=== PATIENT | female | born 1950 | race Caucasian/White ===

== ENCOUNTER 2017-02-10 06:41 | Emergency (ER) | payer OTHER ==
[~2017-02-10] VITALS: Ht 160 cm; Wt 74.6 kg
[~2017-02-10 06:41] MED LIST: ATOR-22 PO; CHOL1000 PO; CYAN500T PO; DOCU-94 PO; DTRSR/10 PO; EFLO13.94 TOP; ESTCR PV; GLIP5TAB11 PO; LISI-729 PO; Lidocaine patch TOP; METF-383 PO; RIZA10TA18 PO; [UNRECOGNIZED DRUG - CODE] PO
[2017-02-10 06:48] VITALS: TEMP 36.9; Ht 160 cm; Wt 74.6 kg
[2017-02-10] MEDS ORDERED: NF656 TOP (07:02)
[2017-02-10] MEDS ORDERED: ESTCR PV (07:02)
[2017-02-10] MEDS ORDERED: IBUP200C9 PO (07:04)
--- NOTE | 2017-02-10 07:41 | EMERGENCY ROOM VISIT NOTE ---
History Report prepared by Juanita: Sanya Capone Under the Supervision of: Dr. Marycruz Zhang M.D. First contact with patient: 07:07 Chief Complaint: FALL Stated Complaint: FALL History of Present Illness The patient is a 66 year old female who presents to the Emergency Room with complaints of an acute fall. The patient fell from her bed at approximately 0500. During the fall she hit her neck on the night stand. She currently complains of left-sided head neck and hip pain. She was eventually able to get up from the floor after 10-15 minutes. The patient had a strong urge to urinate after the fall and was able to make it to the bathroom. To her knowledge, she did not lose consciousness. The patient is not on blood thinners and does not normally take aspirin. The patient took an Advil PM last night as she has chronic back pain. The patient is diabetic. Source of History: patient Onset: last night Position: other (global) Quality: other (fall) Timing: other (acute) Associated Symptoms: + headache, + neck pain, No LOC Review of Systems See HPI for pertinent positives & negatives. A total of 10 systems reviewed and were otherwise negative. Past Medical & Surgical Medical Problems: (1) Cystitis, chronic (2) Diabetes (3) DVT (deep venous thrombosis) (4) Dyslipidemia (5) Ovarian cancer Surgical Problems: (1) History of appendectomy (2) History of cholecystectomy Family History Cancer Diabetes mellitus Heart disease Hypertension Kidney disease Kidney stones Social History Smoking Status: Never Smoker Alcohol Use: none Housing Status: lives alone Occupation Status: unemployed Current/Historical Medications Scheduled Atorvastatin (Lipitor), 40 MG PO DAILY Cholecalciferol (Vitamin D3), 1 TAB PO DAILY Cyanocobalamin (Vitamin B-12), 500 MCG PO BID Docusate Sodium (Colace), 1 CAP PO BID Eflornithine Hcl (Vaniqa), 1 APPLN TOP DAILY Estradiol Vaginal (Estrace), 2 APPLN PV 2XWK Glipizide (Glucotrol), 5 MG PO BID Lidocaine (Lidoderm Patch 5%), 1 PATCH TOP DAILY Lisinopril (Prinivil), 5 MG PO DAILY Metformin Hcl (Glucophage), 850 MG PO BID Oxybutynin Chloride (Oxybutynin Chloride ER), 10 MG PO DAILY Scheduled PRN Ibuprofen-Diphenhydramine Hcl (Advil Pm), 1 CAP PO HS PRN for Sleep Rizatriptan Benzoate (Maxalt), 10 MG PO for Migraine Allergies Coded Allergies: Gabapentin (Unverified Allergy, Intermediate, Nausea,dizziness and forgrtfullness., 02/10/17) Diphenhydramine (Verified Allergy, Unknown, ., 02/10/17) Physical Exam Vital Signs Date Time Temp Pulse Resp B/P Pulse Ox O2 Delivery O2 Flow Rate FiO2 02/10/17 09:00 54 18 112/69 96 02/10/17 06:48 36.9 54 20 127/70 96 Room Air Physical Exam Vital signs reviewed. General: Well-appearing female, in no significant distress. HEENT: No scleral icterus, PERRLA, neck supple. Minimal swelling/contusion to the angle fo the left side of mandible. Neck: Mild tenderness of the proximal cervical spine, no stepoff, no obvious deformity. Cardiovascular: Regular rate and rhythm, no extra sounds. Pulmonary: Clear to auscultation bilaterally, normal work of breathing. Abdomen: Soft, nontender, nondistended, positive bowel sounds. Musculoskeletal: Atraumatic, no peripheral edema. Neurologic: Patient awake alert and oriented x 3 Skin: Warm, dry, no rash Medical Decision & Procedures ER Provider Diagnostic Interpretation: X-ray results as stated below per my interpretation and radiologist interpretation. Other radiology results as stated below per my review and radiologist interpretation: HEAD CT NONCONTRAST CT DOSE: HISTORY: Trauma. Mental status change. fall, CHI TECHNIQUE: Multiaxial CT images of the head were performed without the use of intravenous contrast. Comparison: 01/13/2008 Findings: The paranasal sinuses and mastoid air cells are clear. The calvarium and skull base are intact. The ventricles and sulci are within normal limits. There is no mass, hematoma, midline shift, or acute infarct. Moderate frontal atrophy unchanged in the prior exam. Impression: No acute intracranial abnormality. Electronically signed by: Cheko Hopkins M.D. 02/10/2017 8:28 AM Dictated Date/Time: 02/10/2017 8:[address] DOSE: 924.56 mGy.cm HISTORY: Trauma. Pain. fall, L neck pain TECHNIQUE: Multiaxial CT images of the cervical spine were performed and reformatted in the sagittal and coronal plane without the use of contrast. COMPARISON: None. FINDINGS: No fractures. No subluxation. Prevertebral soft tissues and the C1-C2 interval are intact. No pneumothorax. Mild reversal of the cervical curvature consistent muscular spasm. Degenerative intervertebral disc change C4-T1. IMPRESSION: No fractures within the cervical spine. Muscle spasm. Degenerative change. Electronically signed by: Cheko Hopkins M.D. 02/10/2017 8:31 AM Dictated Date/Time: 02/10/2017 8:28 AM Laboratory Results Test 02/10/17 08:20 Bedside Glucose 137 mg/dl (70-90) Laboratory results per my review. ED Course 0710: The patient was evaluated by the [facility]. 0740: Past medical records reviewed. The patient was evaluated in room A3. A complete history and physical examination was performed. 0900: Reassessed the patient. Discussed the findings with her. She verbalized understanding of the discharge instructions. The patient is ready for discharge. Medical Decision Differential diagnosis: Intracranial injury, cervical spine injury, intrathoracic injury, intra- abdominal injury, musculoskeletal injury. This patient was evaluated and appeared to be in no significant distress. Physical examination is fairly unrevealing with the exception of a mild hematoma /contusion to the left angle of the mandible. CT scan of the head and cervical spine was performed and is negative for acute traumatic findings. Patient was informed of the findings. Her blood sugars 137 which was checked at her request. Patient was doing well and was discharged to follow-up with her primary care physician. She will return to the ER for worsening of symptoms or any medical concerns. Impression Primary Impression: Fall Additional Impression: Neck contusion Scribe Attestation The scribe's documentation has been prepared under my direction and personally reviewed by me in its entirety. I confirm that the note above accurately reflects all work, treatment, procedures, and medical decision making performed by me. Departure Information Dispostion Home / Self-Care Referrals Cori Flores D.O. (PCP) Forms HOME CARE DOCUMENTATION FORM, IMPORTANT VISIT INFORMATION Patient Instructions My [facility] Additional Instructions Diagnosis: fall, neck contusion Ice to the left neck intermittently for the next 24 hours Tylenol 650 mg every 6 hours as needed for pain. Follow up with your doctor this week for reevaluation. Return to emergency for worsening of symptoms or any medical concerns. Problem Qualifiers Primary Impression: Fall Encounter type: initial encounter Qualified Codes: W19.XXXA - Unspecified fall, initial encounter
--- NOTE | 2017-02-10 08:29 | DIAGNOSTIC IMAGING REPORT ---
HEAD CT NONCONTRAST CT DOSE: HISTORY: Trauma. Mental status change. fall, CHI TECHNIQUE: Multiaxial CT images of the head were performed without the use of intravenous contrast. Comparison: 01/13/2008 Findings: The paranasal sinuses and mastoid air cells are clear. The calvarium and skull base are intact. The ventricles and sulci are within normal limits. There is no mass, hematoma, midline shift, or acute infarct. Moderate frontal atrophy unchanged in the prior exam. Impression: No acute intracranial abnormality. Electronically signed by: Cheko Hopkins M.D. 02/10/2017 8:28 AM Dictated Date/Time: 02/10/2017 8:27 AM
--- NOTE | 2017-02-10 08:32 | DIAGNOSTIC IMAGING REPORT ---
CERVICAL SPINE CT CT DOSE: 924.56 mGy.cm HISTORY: Trauma. Pain. fall, L neck pain TECHNIQUE: Multiaxial CT images of the cervical spine were performed and reformatted in the sagittal and coronal plane without the use of contrast. COMPARISON: None. FINDINGS: No fractures. No subluxation. Prevertebral soft tissues and the C1-C2 interval are intact. No pneumothorax. Mild reversal of the cervical curvature consistent muscular spasm. Degenerative intervertebral disc change C4-T1. IMPRESSION: No fractures within the cervical spine. Muscle spasm. Degenerative change. Electronically signed by: Cheko Hopkins M.D. 02/10/2017 8:31 AM Dictated Date/Time: 02/10/2017 8:28 AM
[2017-02-10 09:00] VITALS: BP 112/69; PULSE 54; O2SAT 96
[2017-05-13] MEDS ORDERED: [UNRECOGNIZED DRUG - OTHER] (11:46)
[2017-05-13] MEDS ORDERED: ATOR-22 PO (11:46)
[2017-05-13] MEDS ORDERED: METF-383 PO (11:46)
[2017-05-13] MEDS ORDERED: CYCL0.052 OP (11:46)
[2017-05-13] MEDS ORDERED: CLON0.5T3 PO (11:46)
[2017-05-13] MEDS ORDERED: FLUO40CA8 PO (11:46)
[2017-05-13] MEDS ORDERED: GLIP-197 PO (11:46)
== END 2017-02-10 09:16 | disposition home or self-care (01) ==
LOC: EDBD 06:41 → C.EDA 06:45
DX: S10.93XA Contusion of unspecified part of neck, initial encounter (principal); W06.XXXA Fall from bed, initial encounter; Y92.003 Bedroom of unspecified non-institutional (private) residence as the place of occurrence of the external cause; Y93.84 Activity, sleeping; R51 Headache; M25.552 Pain in left hip; G89.29 Other chronic pain; M54.9 Dorsalgia, unspecified; E11.9 Type 2 diabetes mellitus without complications; N30.20 Other chronic cystitis without hematuria; E78.5 Hyperlipidemia, unspecified; Z85.43 Personal history of malignant neoplasm of ovary; Z86.718 Personal history of other venous thrombosis and embolism; Z83.3 Family history of diabetes mellitus; Z82.49 Family history of ischemic heart disease and other diseases of the circulatory system; Z84.1 Family history of disorders of kidney and ureter

== ENCOUNTER → 2017-02-20 | Outpatient (CLI) | payer OTHER ==
[~2017-02-20] MED LIST changes: +CLON0.5T3 PO; +CYCL0.052 OP; +EFLO13.925 TOP; -EFLO13.94 TOP; +FLUO40CA8 PO; +GLIP-197 PO; +IBUP200C9 PO; -Lidocaine patch TOP; +NF656 TOP; -[UNRECOGNIZED DRUG - CODE] PO; +[UNRECOGNIZED DRUG - OTHER]
== END | disposition home or self-care (01) ==
LOC: C.LABSPEC 15:00
PROVIDERS: ATTEND Podiatrist
DX: L03.031 Cellulitis of right toe (principal)

== ENCOUNTER → 2017-11-26 | Outpatient (CLI) | payer OTHER ==
[~2017-11-26] MED LIST changes: -CLON0.5T3 PO; -DOCU-94 PO; -DTRSR/10 PO; -GLIP5TAB11 PO; -IBUP200C9 PO; +KLN/5 PO
--- NOTE | 2017-11-26 11:34 | DIAGNOSTIC IMAGING REPORT ---
THORACIC SPINE 3 VIEWS ROUTINE CLINICAL HISTORY: 67 years-old Female presenting with THORACIC BACK PAIN, ongoing mid back pain, no known injury or trauma. TECHNIQUE: 4 views of the thoracic spine were obtained. COMPARISON: Chest CT from 2014. FINDINGS: Subtle S-shaped scoliotic curvature of the thoracolumbar spine with slight dextrocurvature in the mid thoracic region and levocurvature at the thoracolumbar junction. Otherwise normal thoracic kyphosis. Evaluation of the upper thoracic vertebral bodies is limited. Partially visualized disc ossify complex in the cervical spine. Thoracic vertebral bodies maintain normal height. Mild degenerative changes evident in the mid to lower thoracic spine with anterior osteophytosis. No compression deformity or gross evidence of subluxation. Cholecystectomy clips. IMPRESSION: 1. Mild S-shaped scoliotic curvature of the thoracolumbar spine and mild multilevel degenerative changes. 2. No radiographic evidence of compression deformity in the thoracic spine. Electronically signed by: Rusty [place] M.D. 11/26/2017 11:33 AM Dictated Date/Time: 11/26/2017 11:30 AM
== END | disposition home or self-care (01) ==
LOC: C.RADBC 10:34
PROVIDERS: ATTEND Physician Assistant
DX: M54.6 Pain in thoracic spine (principal); M41.25 Other idiopathic scoliosis, thoracolumbar region; M89.8X8 Other specified disorders of bone, other site

== ENCOUNTER 2023-04-10 21:47 | Observation (INO) ==
[2023-04-10] MEDS ORDERED: ONDANSETRON INJ 2 MG/ML 2 ML VIAL IV STA (22:05)
[2023-04-10] MEDS ORDERED: MoRPHine SULFATE 4 MG/ML 1 ML CARP\\VIAL IV PRN (22:05)
--- NOTE | 2023-04-10 22:10 | Emergency Department Note ---
History of Present Illness General Chief complaint: Vomiting Stated complaint: VOMITING,HEADACHE,NAUSEA,SHAKY,DIABETIC Time Seen by Provider: 04/10/23 21:56 History of Present Illness Maximum Pain Intensity: 9 This is a 73-year-old female presenting to the emergency department for evaluat ion of headache, nausea, and vomiting worsening throughout the course of today. The patient is a diabetic on pills and is unsure what her sugar has been. She has not had fevers or chills. No chest pain, chest tightness, shortness of breath, or persistent abdominal pain. Symptoms have been ongoing for about 12 hours. Pain in her head is temporal bilaterally. She does not endorse any lightheadedness or dizziness. Her vomiting seems to be getting worse that she has had 3 episodes in the past hour, prompting her presentation to the ER. No known exposure to disease. She does have a history of migraines, and admits that she may have had a similar episode like this several years ago. She has not been able to tolerate nothing by mouth because of the nausea and vomiting. She rates her discomfort a 9/10. Home Medications Medication Instructions Recorded Confirmed Type atorvastatin 20 mg tablet (Lipitor) 20 mg PO PM 08/19/18 04/10/23 History lifitegrast 5 % eye drops in a 1 drp OPB BID 10/13/19 04/11/23 History dropperette (Xiidra) lisinopril 5 mg tablet 5 mg PO PM 06/25/21 04/10/23 History metformin 500 mg tablet,extended 1,000 mg PO BID 07/12/21 04/11/23 History release 24 hr cyanocobalamin (vitamin B-12) 500 500 mcg PO QAM 10/05/21 04/10/23 History mcg tablet (Vitamin B-12) mirtazapine 15 mg tablet (Remeron) 7.5 - 15 mg PO HS PRN Insomnia 10/05/21 04/11/23 History multivitamin 1 tab PO QPM 10/05/21 04/10/23 History meclizine 25 mg tablet 25 mg PO TID PRN dizziness #20 tabs 03/19/22 04/11/23 Rx duloxetine 20 mg capsule,delayed 20 mg PO QAM 02/07/23 04/10/23 History release melatonin 5 mg tablet 10 mg PO HS PRN Insomnia 04/10/23 04/10/23 History camphor 3.1 %-methyl salicylate 15 1 ea topical BID PRN Pain 04/11/23 04/11/23 History %-menthol 10 % topical gel (Salonpas Deep Relieving) eflornithine 13.9 % topical cream 1 applic topical BID PRN Skin 04/11/23 04/11/23 History (Vaniqa) Irritation lidocaine 5 % topical patch 1 patch topical DAILY PRN Pain 04/11/23 04/11/23 History nystatin 100,000 unit/gram topical 1 applic topical BID PRN Rash 04/11/23 04/11/23 History cream Allergies Allergy/AdvReac Type Severity Reaction Status Date / Time gabapentin Allergy Intermediate Nausea,dizziness Verified 04/11/23 00:28 and forgrtfullness. diphenhydramine Allergy Unknown Anxiety Verified 04/11/23 00:28 nickel Allergy Unknown Rash Verified 04/11/23 00:28 Past Med/Surg History Medical History Ambulatory dysfunction painful Anxiety Chronic kidney disease, stage 3a Coccydynia Compression fracture T3 Depression Diabetes TYPE II Dizziness VERTIGO ATTACKS DVT (deep venous thrombosis) 24 YRS AGO > CAUSED FROM OVARIAN CANCER > PLACED [employer] FILTER Dyslipidemia Fall hx [place] filter in place 24 YRS AGO > [facility] > DUE TO DVT Hypertension Kidney stone on left side hx Lumbago Lumbar facet joint syndrome Lumbar radiculitis Migraine Myofascial pain Osteoarthritis involving multiple joints on both sides of body Ovarian cancer 24 YRS AGO > NO PORTS Spinal stenosis Thoracic back pain Thoracic facet syndrome Surgical History H/O laminectomy L3-4 History of appendectomy History of breast biopsy RIGHT History of section History of cholecystectomy History of colonoscopy History of endoscopic sinus surgery 30 YRS AGO History of hysterectomy TOTAL DUE TO OVARIAN CANCER History of surgery hx RFA Family History Brother Diabetes Social History Smoking Status: Never smoker Second Hand Exposure: No; Do You Dip or Chew Tobacco: No; Hx Alcohol Use: No Hx Substance Use: No Preferred Language: [place] Communication Ability: Effective Visual Impairment: No Limitations Hearing Ability: Normal Staff Occupational Therapist Required: No Beliefs That Will Affect Care: None marital status: Current Living Situation: Alone current occupational status: employed 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 Feels Safe at Home: Yes Assistive Devices: Walker Review of Systems A total of 10 systems reviewed and were otherwise negative Physical Exam Vital Signs Vital Signs - 24 hr 04/10/23 21:51 04/10/23 22:23 04/10/23 22:28 Temperature 36.4 C L Temperature Source Temporal Artery Scan Pulse Rate 56 L 58 L 52 L Pulse Rate from SpO2 Sensor Respiratory Rate 20 18 Respiratory Effort / Characteristics Non-Labored Blood Pressure 155/77 H Blood Pressure Mean 103 Pulse Oximetry 96 98 Oxygen Delivery Method Room Air Sepsis Recent Fever Within 48 Hours No Sepsis New/Unexplained Change in Mental Status N/A Sepsis Action Taken by Nursing No Action Required 04/10/23 22:22 04/10/23 22:30 04/10/23 22:30 Temperature Temperature Source Pulse Rate 60 58 L Pulse Rate from SpO2 Sensor 60 57 L Respiratory Rate 14 16 Respiratory Effort / Characteristics Blood Pressure 153/76 H Blood Pressure Mean 101 Pulse Oximetry 97 98 Oxygen Delivery Method Sepsis Recent Fever Within 48 Hours Sepsis New/Unexplained Change in Mental Status Sepsis Action Taken by Nursing 04/10/23 23:00 04/10/23 23:00 04/10/23 23:30 Temperature Temperature Source Pulse Rate 59 L Pulse Rate from SpO2 Sensor 57 L Respiratory Rate 13 Respiratory Effort / Characteristics Blood Pressure 103/88 167/70 H Blood Pressure Mean 93 102 Pulse Oximetry 98 Oxygen Delivery Method Sepsis Recent Fever Within 48 Hours Sepsis New/Unexplained Change in Mental Status Sepsis Action Taken by Nursing 04/10/23 23:30 04/11/23 00:00 04/11/23 00:00 Temperature Temperature Source Pulse Rate 59 L 65 Pulse Rate from SpO2 Sensor 60 65 Respiratory Rate 16 17 Respiratory Effort / Characteristics Blood Pressure 167/82 H Blood Pressure Mean 110 Pulse Oximetry 89 L 98 Oxygen Delivery Method Sepsis Recent Fever Within 48 Hours Sepsis New/Unexplained Change in Mental Status Sepsis Action Taken by Nursing 04/11/23 00:33 04/11/23 00:35 04/11/23 00:35 Temperature Temperature Source Pulse Rate 88 63 Pulse Rate from SpO2 Sensor 67 63 Respiratory Rate 18 12 Respiratory Effort / Characteristics Blood Pressure 134/60 Blood Pressure Mean 84 Pulse Oximetry 94 98 Oxygen Delivery Method Sepsis Recent Fever Within 48 Hours Sepsis New/Unexplained Change in Mental Status Sepsis Action Taken by Nursing 04/11/23 01:00 04/11/23 01:00 04/11/23 01:30 Temperature Temperature Source Pulse Rate 62 Pulse Rate from SpO2 Sensor 62 Respiratory Rate 16 Respiratory Effort / Characteristics Blood Pressure 127/65 118/59 L Blood Pressure Mean 85 78 Pulse Oximetry 95 Oxygen Delivery Method Sepsis Recent Fever Within 48 Hours Sepsis New/Unexplained Change in Mental Status Sepsis Action Taken by Nursing 04/11/23 01:30 04/11/23 02:00 04/11/23 02:00 Temperature Temperature Source Pulse Rate 60 57 L Pulse Rate from SpO2 Sensor 60 58 L Respiratory Rate 19 16 Respiratory Effort / Characteristics Blood Pressure 120/61 Blood Pressure Mean 80 Pulse Oximetry 92 92 Oxygen Delivery Method Sepsis Recent Fever Within 48 Hours Sepsis New/Unexplained Change in Mental Status Sepsis Action Taken by Nursing VITALS: Vitals are noted on the nurse's note and reviewed by myself. Vital signs stable. GENERAL: Elderly white female who is holding an emesis bag. She appears nauseated on my arrival to the room. She is overall pleasant and cooperative. HEAD: Normocephalic atraumatic. MOUTH: Mucous membranes moist. Tonsils are not enlarged. Pharynx without erythema, blood, or exudate. Uvula midline. Airway patent. NECK: Supple without nuchal rigidity. No lymphadenopathy. No thyromegaly. Cervical spine is nontender. HEART: Regular rate and rhythm without murmurs gallops or rubs. LUNGS: Clear to auscultation bilaterally without wheezes, rales or rhonchi. No retractions or accessory muscle use. ABDOMEN: Positive normal bowel sounds x 4. Soft, nontender, without masses or organomegaly. No guarding or rebound tenderness. MUSCULOSKELETAL: No muscle atrophy, erythema, or edema noted. Full range of motion in all extremities NEURO: Patient was alert and oriented to person place and time. CN II through XII grossly intact. GCS 15. Course Administered Medications Morphine Sulfate (Morphine Sulfate 4 Mg/Ml 1 Ml Carp\Vial) 4 mg IV Q30M PRN PRN Reason: Pain Stop: 04/24/23 22:04 Last Admin: 04/10/23 22:12 Dose: 4 mg Documented By: PRAKASH Discontinued Medications Sodium Chloride (Nss 1000ml) 1,000 mls @ 999 mls/hr IV .Q1H1M TEJAL Stop: 04/10/23 23:15 Last Admin: 04/10/23 22:13 Dose: 999 mls/hr Documented By: PRAKASH Acetaminophen (Ofirmev) 1,000 mg in 100 mls @ 400 mls/hr IV NOW STA Stop: 04/11/23 00:34 Last Admin: 04/11/23 00:34 Dose: 400 mls/hr Documented By: PRAKASH Ondansetron HCl (Ondansetron Inj 2 Mg/Ml 2 Ml Vial) 4 mg IV NOW STA Stop: 04/10/23 22:06 Last Admin: 04/10/23 22:12 Dose: 4 mg Documented By: PRAKASH Medical Decision Making Differential Diagnosis The differential diagnosis includes, but is not limited to: acute intracranial bleed, meningitis, encephalitis, mass or mass effect, sinusitis, infection, tumor, headache, temporal arteritis and carbon monoxide exposure, and migraine. Laboratory Data 04/10/23 22:15 04/10/23 22:15 Lab Results 04/10/23 04/10/23 04/10/23 Range/Units 21:53 22:15 22:15 WBC 10.07 (4.8-10.8) K/ul RBC 4.53 (4.20-5.40) M/uL Hgb 14.6 (12.0-16.0) g/dl Hct 41.0 (37.0-47.0) % MCV 90.5 (80.0-100.0) fL MCH 32.2 (25.0-34.0) pg MCHC 35.6 (32.0-36.0) g/dL RDW Std Deviation 43.7 (36.4-46.3) fL RDW Coeff of Marium 13.2 (11.5-14.5) % Plt Count 215 (130-400) K/uL MPV 9.2 L (9.4-12.4) fL Immature Gran % (Auto) 0.3 % Neut % (Auto) 61.3 % Lymph % (Auto) 30.1 % Mcleod % (Auto) 6.5 % Eos % (Auto) 1.2 % Baso % (Auto) 0.6 % Neut # (Auto) 6.18 (1.40-6.50) K/uL Lymph # (Auto) 3.03 (1.2-3.4) K/uL Mcleod # (Auto) 0.65 H (0.11-0.59) K/uL Eos # (Auto) 0.12 (0-0.50) K/uL Baso # (Auto) 0.06 (0-0.2) K/uL Immature Gran # (Auto) 0.03 (0.01-0.20) K/uL PT (9.0-12.0) Seconds INR (0.9-1.1) APTT (21.0-31.0) Seconds PTT Ratio Sodium 133 L (136-145) mmol/L Potassium 3.7 (3.5-5.1) mmol/L Chloride 97 L (98-107) mmol/L Carbon Dioxide 25 (21-32) mmol/L Anion Gap 11 (3-11) BUN 24 H (6-23) mg/dl Creatinine 0.92 (0.6-1.2) mg/dl Est Cr Clr Drug Dosing 43.7 ml/min Est GFR ( Amer) 70.6 ml/min Est GFR (Non-Af Amer) 60.9 ml/min BUN/Creatinine Ratio 26.1 H (10-20) Glucose 142 H (70-99(Fasting)) mg/dl POC Glucose 120 H (70-99) mg/dl Calcium 10.2 (8.6-10.3) mg/dl Magnesium 1.7 (1.7-2.4) mg/dl Total Bilirubin 0.7 (0.2-1.0) mg/dl AST 39 (13-39) U/L ALT 30 (7-52) U/L Alkaline Phosphatase 37 (34-104) U/L Troponin I High Sens 171.7 H* (0-14) pg/ml Total Protein 7.3 (6.0-8.3) gm/dl Albumin 4.6 (3.4-5.0) gm/dl Globulin 2.7 (2.5-4.0) gm/dl Albumin/Globulin Ratio 1.7 (0.9-2) Lipase 7 L (11-82) U/L Adenovirus (PCR) (NotDetected) B. pertussis DNA (PCR) (NotDetected) B.parapertussis DNA PCR (NotDetected) C. pneumoniae DNA (PCR) (NotDetected) Coronavirus OC43 (PCR) (NotDetected) Coronavirus HKU1 (PCR) (NotDetected) Coronavirus 229E (PCR) (NotDetected) SARS-CoV-2 (PCR) (NotDetected) Coronavirus NL63 (PCR) (NotDetected) Human Metapneumovir PCR (NotDetected) Influenza Type A (PCR) (NotDetected) Influenza Type B (PCR) (NotDetected) M. pneumoniae (PCR) (NotDetected) Parainfluenza 1 (PCR) (NotDetected) Parainfluenza 2 (PCR) (NotDetected) Parainfluenza 3 (PCR) (NotDetected) Parainfluenza 4 (PCR) (NotDetected) RSV (PCR) (NotDetected) Entero/Rhino (PCR) (NotDetected) 04/10/23 04/10/23 Range/Units 22:15 23:54 WBC (4.8-10.8) K/ul RBC (4.20-5.40) M/uL Hgb (12.0-16.0) g/dl Hct (37.0-47.0) % MCV (80.0-100.0) fL MCH (25.0-34.0) pg MCHC (32.0-36.0) g/dL RDW Std Deviation (36.4-46.3) fL RDW Coeff of Marium (11.5-14.5) % Plt Count (130-400) K/uL MPV (9.4-12.4) fL Immature Gran % (Auto) % Neut % (Auto) % Lymph % (Auto) % Mcleod % (Auto) % Eos % (Auto) % Baso % (Auto) % Neut # (Auto) (1.40-6.50) K/uL Lymph # (Auto) (1.2-3.4) K/uL Mcleod # (Auto) (0.11-0.59) K/uL Eos # (Auto) (0-0.50) K/uL Baso # (Auto) (0-0.2) K/uL Immature Gran # (Auto) (0.01-0.20) K/uL PT 10.6 (9.0-12.0) Seconds INR 1.0 (0.9-1.1) APTT 26.8 (21.0-31.0) Seconds PTT Ratio 1.0 Sodium (136-145) mmol/L Potassium (3.5-5.1) mmol/L Chloride (98-107) mmol/L Carbon Dioxide (21-32) mmol/L Anion Gap (3-11) BUN (6-23) mg/dl Creatinine (0.6-1.2) mg/dl Est Cr Clr Drug Dosing ml/min Est GFR ( Amer) ml/min Est GFR (Non-Af Amer) ml/min BUN/Creatinine Ratio (10-20) Glucose (70-99(Fasting)) mg/dl POC Glucose (70-99) mg/dl Calcium (8.6-10.3) mg/dl Magnesium (1.7-2.4) mg/dl Total Bilirubin (0.2-1.0) mg/dl AST (13-39) U/L ALT (7-52) U/L Alkaline Phosphatase (34-104) U/L Troponin I High Sens (0-14) pg/ml Total Protein (6.0-8.3) gm/dl Albumin (3.4-5.0) gm/dl Globulin (2.5-4.0) gm/dl Albumin/Globulin Ratio (0.9-2) Lipase (11-82) U/L Adenovirus (PCR) Not Detected (NotDetected) B. pertussis DNA (PCR) Not Detected (NotDetected) B.parapertussis DNA PCR Not Detected (NotDetected) C. pneumoniae DNA (PCR) Not Detected (NotDetected) Coronavirus OC43 (PCR) Not Detected (NotDetected) Coronavirus HKU1 (PCR) Not Detected (NotDetected) Coronavirus 229E (PCR) Not Detected (NotDetected) SARS-CoV-2 (PCR) Not Detected (NotDetected) Coronavirus NL63 (PCR) Not Detected (NotDetected) Human Metapneumovir PCR Not Detected (NotDetected) Influenza Type A (PCR) Not Detected (NotDetected) Influenza Type B (PCR) Not Detected (NotDetected) M. pneumoniae (PCR) Not Detected (NotDetected) Parainfluenza 1 (PCR) Not Detected (NotDetected) Parainfluenza 2 (PCR) Not Detected (NotDetected) Parainfluenza 3 (PCR) Not Detected (NotDetected) Parainfluenza 4 (PCR) Not Detected (NotDetected) RSV (PCR) Not Detected (NotDetected) Entero/Rhino (PCR) Not Detected (NotDetected) Imaging Data Radiologist's Impression: Head CT 04/10/23 22:05 Exam(s): CT HEAD Without Contrast EXAM: CT Head Without Intravenous Contrast CLINICAL HISTORY: Reason for exam: headache, n/v. TECHNIQUE: Axial computed tomography images of the head/brain without intravenous contrast. Automated exposure control was utilized for the study. A dose lowering technique was utilized adhering to the principles of ALARA. COMPARISON: No relevant prior studies available. FINDINGS: No acute intracranial hemorrhage. No midline shift or mass effect. The territorial hoffman-white matter differentiation is maintained throughout. Age-related cerebral volume loss. Periventricular and subcortical white matter hypoattenuation, consistent with chronic microangiopathy. The visualized orbits appear grossly unremarkable. The calvarium is intact. The visualized paranasal sinuses and mastoid air cells are grossly clear. IMPRESSION: No acute intracranial hemorrhage, midline shift, or mass effect. Electronically signed by: Gaurav Hawley MD 04/10/23 23:13 PM MDM Narrative Physical exam and history were performed. Nursing notes, EMR, and Medication List were personally reviewed. No social concerns were identified as barriers to patients care. Patient appears to have nausea, vomiting, headache symptoms bringing her to the ER. Her symptoms seem to have begun around the same time it is difficult to discern if the headache or the vomiting is the initial presenting symptoms. IV access was established and labs were obtained. She was hydrated with normal saline and given IV morphine and IV Zofran for comfort. She was sent to CT scan for imaging of her head. An order was placed for continuous cardiac monitoring. The monitor shows a rate of 61 with normal sinus rhythm. Patient's blood work is as above and was reviewed. She does not have a significantly elevated white blood cell count, gross anemia, bandemia, or significant electrolyte imbalance. Transaminases are not diagnostic. Troponin is elevated at 171. CT scan was reviewed by myself and radiology showing no acute process. Patient was reevaluated multiple times over the course of her stay. 2 EKGs were performed and do not show ischemic findings. Case was discussed with physician, Dr. Roque, who also evaluated the patient. The patient is not felt to be well for discharge home. Heart score is 6 placing her at least at moderate risk for cardiac event. Again, she is not having chest pain today and EKG is nonischemic. The case was discussed with the hospitalist team who agreed to evaluate her here in the ER. Please see their dictation for further patient course, plan, and disposition. The chart was completed utilizing [employer] Speech Voice Recognition Software. Grammatical errors, random word insertions, pronoun errors, and incomplete sentences are an occasional consequence of this system due to software limitations, ambient noise, and hardware issues. Any formal questions or concerns about the content, text, or information contained within the body of this dictation should be directly addressed to the provider for clarification. . Impression & Plan Elevated troponin, Headache, Nausea and vomiting Discharge Plan Visit Data Chief Complaint: Vomiting Stated Complaint: VOMITING,HEADACHE,NAUSEA,SHAKY,DIABETIC ED Provider: Abdirahman Roque ED Midlevel Provider: Cheng Chaudhari Discharge Problem: Elevated troponin, Headache, Nausea and vomiting Forms Stand Alone Forms: My [facility] [id number] Prescriptions Prescriptions: No Action atorvastatin [Lipitor] 20 mg tablet 20 mg PO PM duloxetine 20 mg capsule,delayed release(DR/EC) 20 mg PO QAM Xiidra 5 % Dropperette 1 drp OPB BID Rx Instructions: both eyes lisinopril 5 mg Tablet 5 mg PO PM metformin 500 mg tablet extended release 24 hr 1,000 mg PO BID multivitamin Tablet 1 tab PO QPM cyanocobalamin (vitamin B-12) [Vitamin B-12] 500 mcg Tablet 500 mcg PO QAM mirtazapine [Remeron] 15 mg Tablet 7.5 - 15 mg PO HS PRN (Reason: Insomnia) melatonin 5 mg Tablet 10 mg PO HS PRN (Reason: Insomnia) nystatin 100,000 unit/gram cream 1 applic TOPICAL BID PRN (Reason: Rash) Vaniqa 13.9 % Cream 1 applic TOPICAL BID PRN (Reason: Skin Irritation) Rx Instructions: space doses >= 8 hrs apart and at least 5 min after hair removal; avoid water for 4hr after any dose Salonpas Deep Relieving 3.1-15-10 % Gel 1 ea TOPICAL BID PRN (Reason: Pain) lidocaine 5 % Adhesive Patch,Medicated 1 patch TOPICAL DAILY PRN (Reason: Pain) Rx Instructions: leave on most painful area for up to 12 hrs meclizine 25 mg tablet 25 mg PO TID PRN (Reason: dizziness) Qty: 20 0RF Referrals Referrals: Jesus Lawrence DO [Physician] -
[2023-04-10] MEDS ORDERED: SODIUM CHLORIDE 0.9% 1000ML 1,000 ML IV SCH (22:15)
[2023-04-10 22:47] LABS: Basophils # (auto) 0.06 K/uL (0-0.2); Basophils % (auto) 0.6 %; Eosinophils # (auto) 0.12 K/uL (0-0.50); Eosinophils % (auto) 1.2 %; Hemoglobin 14.6 g/dl (12.0-16.0); Immature Granulocytes # (auto) 0.03 K/uL (0.01-0.20); Immature Granulocytes % (auto) 0.3 %; Lymphocytes # (auto) 3.03 K/uL (1.2-3.4); Lymphocytes % (auto) 30.1 %; Mean Corpuscular Hemoglobin 32.2 pg (25.0-34.0); Mean Corpuscular Hgb Conc 35.6 g/dL (32.0-36.0); Mean Corpuscular Volume 90.5 fL (80.0-100.0); Mean Platelet Volume 9.2 fL (9.4-12.4); Monocytes # (auto) 0.65 K/uL (0.11-0.59); Monocytes % (auto) 6.5 %; Neutrophils # (auto) 6.18 K/uL (1.40-6.50); Neutrophils % (auto) 61.3 %; Platelet Count 215 K/uL (130-400); RDW Coefficient of Variation 13.2 % (11.5-14.5); RDW Standard Deviation 43.7 fL (36.4-46.3); Red Blood Count 4.53 M/uL (4.20-5.40); White Blood Count 10.07 K/ul (4.8-10.8)
[2023-04-10 22:51] LABS: Albumin Globulin Ratio 1.7 (0.9-2); Albumin Level 4.6 gm/dl (3.4-5.0); BUN Creatinine Ratio 26.1 (10-20); Bilirubin,Total 0.7 mg/dl (0.2-1.0); Calcium 10.2 mg/dl (8.6-10.3); Creatinine Clr Calc Pharmacy 43.7 ml/min; Est GFR (African American) 70.6 ml/min; Est GFR (Non-African American) 60.9 ml/min; Globulin 2.7 gm/dl (2.5-4.0); Magnesium 1.7 mg/dl (1.7-2.4); Potassium 3.7 mmol/L (3.5-5.1); Total Protein 7.3 gm/dl (6.0-8.3)
[2023-04-10 23:05] LABS: Partial Thromboplastin Time 26.8 Seconds (21.0-31.0); Prothrombin Time 10.6 Seconds (9.0-12.0); Troponin I High Sensitivity 171.7 pg/ml (0-14)
--- NOTE | 2023-04-10 23:14 | CT Scan Report ---
Exam(s): CT HEAD Without Contrast EXAM: CT Head Without Intravenous Contrast CLINICAL HISTORY: Reason for exam: headache, n/v. TECHNIQUE: Axial computed tomography images of the head/brain without intravenous contrast. Automated exposure control was utilized for the study. A dose lowering technique was utilized adhering to the principles of ALARA. COMPARISON: No relevant prior studies available. FINDINGS: No acute intracranial hemorrhage. No midline shift or mass effect. The territorial hoffman-white matter differentiation is maintained throughout. Age-related cerebral volume loss. Periventricular and subcortical white matter hypoattenuation, consistent with chronic microangiopathy. The visualized orbits appear grossly unremarkable. The calvarium is intact. The visualized paranasal sinuses and mastoid air cells are grossly clear. IMPRESSION: No acute intracranial hemorrhage, midline shift, or mass effect. Electronically signed by: Gaurav Hawley MD 04/10/23 23:13 PM
--- NOTE | 2023-04-10 23:30 | Emergency Department Note ---
ED Visit Note I was consulted by the Advanced Practice Provider. I saw the patient personally and performed a substantive portion of the visit. This includes aspects of the HPI, MDM, diagnostic interpretations, and disposition/plan. The patient's work-up revealed a mild elevation to the cardiac troponin. ECG was essentially normal. Given the troponin elevation, hospitalization, further cardiac work-up was felt warranted. .
[2023-04-11] MEDS ORDERED: ACETAMINOPHEN 1,000 MG/100 ML VIAL IV STA (00:20)
[2023-04-11 00:59] LABS: Adenovirus PCR Not Detected (NotDetected); Bordetella parapertussis PCR Not Detected (NotDetected); Bordetella pertussis PCR Not Detected (NotDetected); Chlamydia pneumoniae PCR Not Detected (NotDetected); Coronavirus 229E PCR Not Detected (NotDetected); Coronavirus CoV-2 (COVID19)PCR Not Detected (NotDetected); Coronavirus HKU1 PCR Not Detected (NotDetected); Coronavirus NL63 PCR Not Detected (NotDetected); Coronavirus OC43PCR Not Detected (NotDetected); Human Metapneumovirus PCR Not Detected (NotDetected); Influenza A PCR Not Detected (NotDetected); Influenza B PCR Not Detected (NotDetected); Mycoplasma pneumoniae PCR Not Detected (NotDetected); Parainfluenza Virus 1 PCR Not Detected (NotDetected); Parainfluenza Virus 2 PCR Not Detected (NotDetected); Parainfluenza Virus 3 PCR Not Detected (NotDetected); Parainfluenza Virus 4 PCR Not Detected (NotDetected); Respiratory Syncytial VirusPCR Not Detected (NotDetected); Rhinovirus/Enterovirus PCR Not Detected (NotDetected)
--- NOTE | 2023-04-11 02:29 | History and Physical Report ---
DATE OF ADMISSION: 04/10/2023. CHIEF COMPLAINT: Nausea, vomiting, and headache. HISTORY OF PRESENT ILLNESS: A 73-year-old female with past medical history significant for type 2 diabetes, chronic kidney disease stage III, hypertension, hyperlipidemia, GERD, history of interstitial cystitis, spinal stenosis, migraine variant, chronic low back pain, depression, anxiety disorder, who presents with nausea, vomiting, and headache. The patient since afternoon says feels nauseous. She lives alone. She called her friend. She vomited three times, there was no blood in the vomiting, and then she started to develop severe headache when they decided to come to the ER. Currently, still having significant headaches. She received morphine in the ER. Currently, she states she has some difficulty concentrating. CT of the head was okay. Denies any dizziness, no blurred visions, no earache, no runny nose, no sore throat, no cough, no fevers, no chest pain, no shortness of breath, no abdominal pain. Normal bowel and bladder movements. Currently, resting comfortably and hemodynamically stable. ALLERGIES: GABAPENTIN, DIPHENHYDRAMINE, NICKEL. PAST MEDICAL HISTORY: As mentioned above. PAST SURGICAL HISTORY: Right breast biopsy, colonoscopy, detached retina repair, EGDs, lumbar laminectomy, appendectomy, removal of uvula, removal of gallbladder, sinus surgery, total abdominal hysterectomy with removal of tubes, total hysterectomy. MEDICATIONS: The patient is on atorvastatin 20 mg p.o. p.m., vitamin B12 500 mcg p.o. a.m., duloxetine 20 mg p.o. a.m., lidocaine patch topical daily, lisinopril 5 mg p.o. a.m., meclizine 25 mg p.o. t.i.d. p.r.n., melatonin 10 mg p.o. at bedtime p.r.n., metformin 1000 mg p.o. b.i.d., Remeron 7.5 to 15 mg p.o. at bedtime p.r.n., multivitamins 1 tablet p.o. a.m., Nystatin topical b.i.d. p.r.n., Xiidra 1 drop ophthalmic b.i.d. FAMILY HISTORY: Significant for mother has arthritis; maternal cousin has breast cancer; daughter has breast cancer; sister has breast cancer; maternal grandfather had gastric cancer; younger sibling has cancer; brother has diabetes; father has diabetes; brother has heart disorder; father has heart disorder; sister has heart disorder, father has hypertension; brother has hypertension. SOCIAL HISTORY: Lives alone. No smoking. Occasional wine. No drug use. REVIEW OF SYSTEMS: As per HPI. Rest of the review of systems is negative. PHYSICAL EXAMINATION: GENERAL: The patient is of moderate build, not in acute distress. VITAL SIGNS: Temperature 36.4, pulse 52, respiratory rate 18, blood pressure 155/77, oxygen 98% on room air. HEENT: Pupils equal, round, and reactive to light. Oral mucosa moist. NECK: No JVD. No neck masses. CARDIOVASCULAR: S1 and S2 heard. Regular rate and rhythm. No murmur, no gallop. RESPIRATORY SYSTEM: Normal AP diameter. No accessory muscle use. No wheezing, no crackles. ABDOMEN: Soft, bowel sounds present, nontender, no distention. CENTRAL NERVOUS SYSTEM: alert and oriented, no facial droop, power 5/5, co ordination of movements normal, no pronator drift, sensations intact.. EXTREMITIES: No edema, no erythema. LABORATORY DATA: WBC 10.07, hemoglobin 14.6, hematocrit 41, platelets 215. PT 10.6, INR 1, APTT 26.8. Sodium 133, potassium 3.7, chloride 97, bicarbonate 25, BUN 24, creatinine 0.9, serum glucose 142, calcium 10.2, magnesium 1.7, total bilirubin 0.7, AST 39, ALT 30, alkaline phosphatase 37. Troponin I high sensitivity 171.7, lipase 7. Respiratory BioFire pending. IMAGING DATA: CT of the head, no acute findings. EKG: Normal sinus rhythm with rate of 61. ASSESSMENT AND PLAN: This 73-year-old female presents with nausea, vomiting, and headache. 1. Nausea, vomiting, and headache. CT of the head is okay. Respiratory BioFire is negative . Urinalysis ok. Will keep her n.p.o., IV fluids, pain control, monitor in the hospital, observe in the hospital. 2. Troponin elevation to 171: The patient denies any chest pain. Initial EKG showed some junctional rhythm, but repeat EKG was normal sinus rhythm. The patient has no chest pain, no shortness of breath. Will follow serial enzymes and echocardiogram. discuss/consult cardiology. Will keep her n.p.o. for now. 3. Diabetes: Hold her home metformin. Placed on insulin sliding .Will Follow the blood sugars. Follow HbA1c level. 4. History of hypertension: Continue her lisinopril. Will monitor the blood pressure. 5. Hyperlipidemia: On statin. 6. Depression and anxiety: Continue her duloxetine and on Remeron as needed. 7. Chronic kidney disease stage III: Currently creatinine of 0.92. Will follow the labs. 8. Deep venous thrombosis prophylaxis: Heparin subcutaneously. DISPOSITION: Closely, observe in med tele. Expect to discharge home and follow with family doctor. Job ID: [id number] MOUNIKA
[2023-04-11 04:07] LABS: Appearance Urine Clear (Clear); Bilirubin Urine Negative (Negative); Blood Urine Negative (Negative); Color Urine Yellow; Glucose Urine UA Negative (Negative); Ketones Urine Trace (Negative); Leukocyte Esterase Urine Negative (Negative); Nitrite Urine Negative (Negative); Protein Urine Negative (Negative); Specific Gravity Urine 1.007 (1.000-1.030); Urobilinogen Urine Negative (Negative); pH Urine 7.5 (4.5-7.5)
[2023-04-11] MEDS ORDERED: ACETAMINOPHEN 325 MG TAB PO PRN (04:14)
[2023-04-11] MEDS ORDERED: CARBOHYDRATES FOR HYPOGLYCEMIA PO PRN (04:14)
[2023-04-11] MEDS ORDERED: ONDANSETRON INJ 2 MG/ML 2 ML VIAL IV PRN (04:14)
[2023-04-11] MEDS ORDERED: GLUCOSE 10 TAB/TUBE PO PRN (04:14)
[2023-04-11] MEDS ORDERED: DEXTROSE 50% 50 ML SYRINGE IV PRN (04:14)
[2023-04-11] MEDS ORDERED: MECLIZINE HCL 25 MG TAB PO PRN (04:14)
[2023-04-11] MEDS ORDERED: MIRTAZAPINE TAB 15 MG TAB PO PRN (04:14)
[2023-04-11] MEDS ORDERED: NITROGLYCERIN SL 0.4 MG/TAB TAB SL PRN (04:14)
[2023-04-11] MEDS ORDERED: MELATONIN 3 MG TAB PO PRN (04:14)
[2023-04-11] MEDS ORDERED: GLUCOSE 40% GEL 15 GM TUBE PO PRN (04:14)
[2023-04-11] MEDS ORDERED: GLUCAGON FOR INJ 1 MG VIAL SQ PRN (04:14)
[2023-04-11] MEDS ORDERED: NYSTATIN CR 15 GM TUBE EXT PRN (04:14)
[2023-04-11 04:55] LABS: Basophils # (auto) 0.04 K/uL (0-0.2); Basophils % (auto) 0.5 %; Eosinophils # (auto) 0.06 K/uL (0-0.50); Eosinophils % (auto) 0.8 %; Hematocrit (blood only) 39.7 % (37.0-47.0); Hemoglobin 13.5 g/dl (12.0-16.0); Immature Granulocytes # (auto) 0.02 K/uL (0.01-0.20); Immature Granulocytes % (auto) 0.3 %; Lymphocytes # (auto) 2.02 K/uL (1.2-3.4); Lymphocytes % (auto) 26.3 %; Mean Corpuscular Hemoglobin 31.5 pg (25.0-34.0); Mean Corpuscular Volume 92.8 fL (80.0-100.0); Monocytes # (auto) 0.43 K/uL (0.11-0.59); Monocytes % (auto) 5.6 %; Neutrophils % (auto) 66.5 %; Platelet Count 186 K/uL (130-400); RDW Coefficient of Variation 13.2 % (11.5-14.5); RDW Standard Deviation 44.9 fL (36.4-46.3); Red Blood Count 4.28 M/uL (4.20-5.40); White Blood Count 7.67 K/ul (4.8-10.8)
[2023-04-11 05:08] LABS: BUN Creatinine Ratio 22.7 (10-20); Calcium 9.6 mg/dl (8.6-10.3); Creatinine Clr Calc Pharmacy 45.7 ml/min; Est GFR (African American) 74.5 ml/min; Est GFR (Non-African American) 64.3 ml/min; Magnesium 1.8 mg/dl (1.7-2.4); Potassium 5.2 mmol/L (3.5-5.1)
[2023-04-11 05:17] LABS: Troponin I High Sensitivity 343.6 pg/ml (0-14)
[2023-04-11] MEDS: SODIUM CHLORIDE 0.9% 1000ML 1,000 ML IV SCH ×3 (05:56→22:00)
[2023-04-11] MEDS: INSULIN ASPART PER UNIT CHARGE SC SCH ×4 (06:00→23:13)
[2023-04-11] MEDS ORDERED: ORDER AWAITING ACTION: Lifitegrast [Xiidra] 5 % Dropperette SCH (08:00)
[2023-04-11 08:07] LABS: Estimated Average Glucose 137 mg/dl; Hemoglobin A1C 6.4 % (4.5-5.6)
[2023-04-11] MEDS: DULoxetine HCL 20 MG CAP PO SCH (08:13)
[2023-04-11] MEDS: CYANOCOBALAMIN (B-12) 500 MCG TABLET PO SCH (08:14)
[2023-04-11] MEDS ORDERED: LIDOCAINE 5% 1 PATCH TD PRN (09:00)
--- NOTE | 2023-04-11 10:20 | Electrocardiogram Report ---
Test Reason : Blood Pressure : / mmHG Vent. Rate : 053 BPM Atrial Rate : 000 BPM P-R Int : 000 ms QRS Dur : 080 ms QT Int : 442 ms P-R-T Axes : 000 049 063 degrees QTc Int : 414 ms Sinus rhythm Confirmed by Juan Miguel Arciniega ([id number]) on 04/11/2023 10:20:20 AM Referred By: REFERRED SELF Confirmed By:Peter Arciniega
--- NOTE | 2023-04-11 10:21 | Electrocardiogram Report ---
Test Reason : Blood Pressure : / mmHG Vent. Rate : 061 BPM Atrial Rate : 061 BPM P-R Int : 160 ms QRS Dur : 076 ms QT Int : 410 ms P-R-T Axes : 074 061 067 degrees QTc Int : 412 ms Normal sinus rhythm Normal ECG Confirmed by Juan Miguel Arciniega ([id number]) on 04/11/2023 10:21:19 AM Referred By: REFERRED SELF Confirmed By:Peter Arciniega
[2023-04-11] MEDS: HEPARIN SOD 5,000 UNIT/0.5 ML VIAL SQ SCH ×2 (11:02→20:52)
[2023-04-11] MEDS ORDERED: ARTIFICIAL TEARS OP PRN (12:36)
--- NOTE | 2023-04-11 14:25 | Hospitalist Progress Note ---
Date of Service April 11, 2023 Assessment & Plan (1) Nausea and vomiting: (2) Headache: (3) Elevated troponin: Plan 73-year-old female who presented with nausea, vomiting, headache following chewing of "old" garlic piece in the evening prior to arrival and was found to have elevated troponin. She is being managed for the following: Nausea, vomiting, headache: Admitting CT head with no acute findings, respiratory BioFire negative. Urine analysis normal. On IV fluid, no further nausea/vomiting/headache. Advance diet as tolerated. Patient denies/headache in the past. Patient reports having this set of symptoms after having a piece of garlic at home. We will continue to monitor. Likely Type II NSTEMI: likely 2/2 acute stress (above). Admitting troponin elevated at 171, with up trended and then again down trended, we will get another set of troponin. EKG at admission and follow-up EKG with no acute ST or T changes, echo with no regional wall motion abnormality. Echo reviewed. Discussed with cardiology/kumar, will monitor overnight and get a repeat EKG in the morning. Other chronic medical conditions: 3. Diabetes: Hold her home metformin. Placed on insulin sliding .Will Follow the blood sugars. A1C 6.4. 4. History of hypertension: Continue her lisinopril at reduced dose, consider discontinuing if BP remains low.. Will monitor the blood pressure. 5. Hyperlipidemia: On statin. 6. Depression and anxiety: Continue her duloxetine and on Remeron as needed. 7. Chronic kidney disease stage III: stable DVT prophylaxis: Heparin subcu Full code Admission and Anticipated Discharge Date Admission Date: April 11, 2023 Subjective Patient seen and examined at bedside as a follow-up of acute onset nausea, vomiting and headache following ingestion of garlic at home and finding of elevated troponin at ED. Patient was lying in bed, on room air, NAD, denies any chest pain or lightheadedness or headache or dizziness, denies further nausea or vomiting or headache. Patient does not complain such headache symptoms in the past that was present at admission. Patient reports having nausea/vomiting/headache following chewing of garlic in the evening prior to arrival/might have been old/damaged piece of garlic per pt. It has gotten better now. Patient denies any lightheadedness or chest pain or tightness even during her workout which she usually does thrice a week, 1 hour session at a time. Pt does report having some dizziness while getting off of bed in the morning, and reports BP normal to lower side, will get few ortho vitals, reduce dose on lisinopril which patient agrees to. Will monitor. Physical Exam Physical Exam: GENERAL: Alert and oriented x3. NAD, on RA. HEENT: No pallor, no icterus. Pupils equal, round and reactive to light. Oral mucosa moist. NECK: No JVD, no neck masses. HEART: S1 and S2 heard. Regular rate and rhythm. No murmur, no gallop. RESPIRATORY SYSTEM: Normal AP diameter. No accessory muscle use. No wheezing, no crackles. ABDOMEN: Soft, bowel sounds present, nontender, no distention. CENTRAL NERVOUS SYSTEM: No facial droop. Speech is clear. Obeys simple com mands. Moves extremities. EXTREMITIES: No edema, no erythema seen. Results & Data Results & Data Vital Signs (Past 12 Hours) Vital Signs Pulse Pulse Resp BP BP Pulse Ox Pulse Ox 04/11/23 14:08 60 18 98/61 L 97 04/11/23 07:07 60 107/52 L 96 04/11/23 07:07 96 04/11/23 07:05 55 L 04/11/23 06:30 59 L 19 95 04/11/23 06:30 125/66 04/11/23 06:00 60 17 97 04/11/23 06:00 122/56 L 04/11/23 05:44 111/49 L 04/11/23 05:44 94 04/11/23 05:30 58 L 16 93 04/11/23 05:30 92/50 L 04/11/23 05:00 58 L 16 93 04/11/23 04:30 55 L 15 93 04/11/23 04:30 107/58 L 04/11/23 04:00 56 L 17 93 04/11/23 04:00 104/57 L 04/11/23 03:30 56 L 16 94 04/11/23 03:30 104/56 L 04/11/23 03:00 57 L 15 96 04/11/23 03:00 121/62 04/11/23 02:30 55 L 17 94 04/11/23 02:30 116/61 04/11/23 02:26 56 L O2 Del Method O2 Del Method 04/11/23 14:08 Room Air 04/11/23 07:07 Room Air 04/11/23 07:07 Room Air 04/11/23 07:05 04/11/23 06:30 04/11/23 06:30 04/11/23 06:00 04/11/23 06:00 04/11/23 05:44 04/11/23 05:44 04/11/23 05:30 04/11/23 05:30 04/11/23 05:00 04/11/23 04:30 04/11/23 04:30 04/11/23 04:00 04/11/23 04:00 04/11/23 03:30 04/11/23 03:30 04/11/23 03:00 04/11/23 03:00 04/11/23 02:30 04/11/23 02:30 04/11/23 02:26
[2023-04-11] MEDS ORDERED: TROLAMINE SALICYLATE 10% CRM 255 APPLN/85 GM TUBE EXT PRN (14:30)
[2023-04-11] MEDS ORDERED: lisinopril 5 MG TAB PO SCH (21:00)
[2023-04-11] MEDS ORDERED: lisinopril 2.5 MG TAB PO SCH (21:00)
[2023-04-11] MEDS ORDERED: ATORVASTATIN 20 MG TAB PO SCH (21:00)
[2023-04-11] MEDS ORDERED: MULTIVITAMIN TAB PO SCH (21:00)
[2023-04-12] MEDS: INSULIN ASPART PER UNIT CHARGE SC SCH ×2 (04:48→13:05)
[2023-04-12] MEDS: SODIUM CHLORIDE 0.9% 1000ML 1,000 ML IV SCH (06:16)
[2023-04-12 07:55] LABS: BUN Creatinine Ratio 24.1 (10-20); Calcium 8.8 mg/dl (8.6-10.3); Creatinine Clr Calc Pharmacy 44.2 ml/min; Est GFR (African American) 75.5 ml/min; Est GFR (Non-African American) 65.2 ml/min; Magnesium 1.6 mg/dl (1.7-2.4); Phosphorus 3.4 mg/dl (2.5-4.9); Potassium 3.8 mmol/L (3.5-5.1)
[2023-04-12] MEDS: MAGNESIUM SULFATE / D5W 1 GM/100 ML BAG IV SCH ×2 (10:05→11:24)
[2023-04-12] MEDS: HEPARIN SOD 5,000 UNIT/0.5 ML VIAL SQ SCH (10:59)
[2023-04-12] MEDS: DULoxetine HCL 20 MG CAP PO SCH (11:37)
[2023-04-12] MEDS: CYANOCOBALAMIN (B-12) 500 MCG TABLET PO SCH (12:04)
--- NOTE | 2023-04-12 15:24 | Communication Note ---
Date of Service: April 12, 2023 Patient referred for stress echocardiogram. Patient exercised on a standard Gabriel protocol for 6 minutes and 10 seconds achieving an estimated met level 7.2 METS while reaching a maximum heart rate of 122 or 84% age-predicted maximum heart rate. Test was stopped secondary to fatigue and inability to keep up with treadmill. No chest pain or discomfort Resting and stress EKG were normal Resting and stress LV systolic function and wall motion were normal There was no evidence of stress-induced ischemia. Blood pressure response post exercise was hypertensive to a peak of 209/92 with associated head pounding sensation similar to presenting complaints
--- NOTE | 2023-04-12 15:27 | Electrocardiogram Report ---
Test Reason : Blood Pressure : / mmHG Vent. Rate : 052 BPM Atrial Rate : 052 BPM P-R Int : 170 ms QRS Dur : 078 ms QT Int : 466 ms P-R-T Axes : 051 050 058 degrees QTc Int : 433 ms Poor data quality, interpretation may be adversely affected Sinus bradycardia Otherwise normal ECG When compared with ECG of 10-APR-2023 23:12, No significant change was found Confirmed by Juan Miguel Arciniega ([id number]) on 04/12/2023 3:27:13 PM Referred By: REFERRED SELF Confirmed By:Pteer Arciniega
--- NOTE | 2023-04-12 15:34 | Electrocardiogram Report ---
Test Reason : Blood Pressure : / mmHG Vent. Rate : 056 BPM Atrial Rate : 056 BPM P-R Int : 170 ms QRS Dur : 080 ms QT Int : 434 ms P-R-T Axes : 021 049 060 degrees QTc Int : 418 ms Sinus bradycardia Otherwise normal ECG When compared with ECG of 12-APR-2023 04:36, (unconfirmed) No significant change was found Confirmed by Juan Miguel Arciniega ([id number]) on 04/12/2023 3:34:24 PM Referred By: REFERRED SELF Confirmed By:Peter Arciniega
--- NOTE | 2023-04-12 16:18 | Discharge Summary ---
Date of Service April 12, 2023 Admission HPI Per Admitting Provider DATE OF ADMISSION: 04/10/2023. CHIEF COMPLAINT: Nausea, vomiting, and headache. HISTORY OF PRESENT ILLNESS: A 73-year-old female with past medical history significant for type 2 diabetes, chronic kidney disease stage III, hypertension, hyperlipidemia, GERD, history of interstitial cystitis, spinal stenosis, migraine variant, chronic low back pain, depression, anxiety disorder, who presents with nausea, vomiting, and headache. The patient since afternoon says feels nauseous. She lives alone. She called her friend. She vomited three times, there was no blood in the vomiting, and then she started to develop severe headache when they decided to come to the ER. Currently, still having significant headaches. She received morphine in the ER. Currently, she states she has some difficulty concentrating. CT of the head was okay. Denies any dizziness, no blurred visions, no earache, no runny nose, no sore throat, no cough, no fevers, no chest pain, no shortness of breath, no abdominal pain. Normal bowel and bladder movements. Currently, resting comfortably and hemodynamically stable. ALLERGIES: GABAPENTIN, DIPHENHYDRAMINE, NICKEL. PAST MEDICAL HISTORY: As mentioned above. PAST SURGICAL HISTORY: Right breast biopsy, colonoscopy, detached retina repair, EGDs, lumbar laminectomy, appendectomy, removal of uvula, removal of gallbladder, sinus surgery, total abdominal hysterectomy with removal of tubes, total hysterectomy. MEDICATIONS: The patient is on atorvastatin 20 mg p.o. p.m., vitamin B12 500 mcg p.o. a.m., duloxetine 20 mg p.o. a.m., lidocaine patch topical daily, lisinopril 5 mg p.o. a.m., meclizine 25 mg p.o. t.i.d. p.r.n., melatonin 10 mg p.o. at bedtime p.r.n., metformin 1000 mg p.o. b.i.d., Remeron 7.5 to 15 mg p.o. at bedtime p.r.n., multivitamins 1 tablet p.o. a.m., Nystatin topical b.i.d. p.r.n., Xiidra 1 drop ophthalmic b.i.d. FAMILY HISTORY: Significant for mother has arthritis; maternal cousin has breast cancer; daughter has breast cancer; sister has breast cancer; maternal grandfather had gastric cancer; younger sibling has cancer; brother has diabetes; father has diabetes; brother has heart disorder; father has heart disorder; sister has heart disorder, father has hypertension; brother has hypertension. SOCIAL HISTORY: Lives alone. No smoking. Occasional wine. No drug use. REVIEW OF SYSTEMS: As per HPI. Rest of the review of systems is negative. Admission Exam Per Admitting Provider GENERAL: The patient is of moderate build, not in acute distress. VITAL SIGNS: Temperature 36.4, pulse 52, respiratory rate 18, blood pressure 155/77, oxygen 98% on room air. HEENT: Pupils equal, round, and reactive to light. Oral mucosa moist. NECK: No JVD. No neck masses. CARDIOVASCULAR: S1 and S2 heard. Regular rate and rhythm. No murmur, no gallop. RESPIRATORY SYSTEM: Normal AP diameter. No accessory muscle use. No wheezing, no crackles. ABDOMEN: Soft, bowel sounds present, nontender, no distention. CENTRAL NERVOUS SYSTEM: alert and oriented, no facial droop, power 5/5, co ordination of movements normal, no pronator drift, sensations intact.. EXTREMITIES: No edema, no erythema. Principal Diagnosis Headache likely secondary to hypertensive urgency Likely type II NSTEMI secondary to hypertensive urgency Discharge Exam GENERAL: Alert and oriented x3. NAD, on RA. HEENT: No pallor, no icterus. Pupils equal, round and reactive to light. Oral mucosa moist. NECK: No JVD, no neck masses. HEART: S1 and S2 heard. Regular rate and rhythm. No murmur, no gallop. RESPIRATORY SYSTEM: Normal AP diameter. No accessory muscle use. No wheezing, no crackles. ABDOMEN: Soft, bowel sounds present, nontender, no distention. CENTRAL NERVOUS SYSTEM: No facial droop. Speech is clear. Obeys simple commands. Moves extremities. EXTREMITIES: No edema, no erythema seen. Discharge Data Allergies Allergy/AdvReac Type Severity Reaction Status Date / Time gabapentin Allergy Intermediate Nausea,dizziness Verified 04/11/23 00:28 and forgrtfullness. diphenhydramine Allergy Unknown Anxiety Verified 04/11/23 00:28 nickel Allergy Unknown Rash Verified 04/11/23 00:28 Consultations 05/17/23 23:22 ED Decision to Admit Stat Ordered Studies 04/10/23 22:05 CT head/brain wo con Stat Hospital Course (1) Nausea and vomiting: (2) Headache: (3) Elevated troponin: Plan 73-year-old female who presented with nausea, vomiting, headache following chewing of "old" garlic piece in the evening prior to arrival and was found to have elevated troponin. She was managed for the following: Nausea, vomiting, headache:Admitting CT head with no acute findings, respiratory BioFire negative. Urine analysis normal. No further na usea/vomiting/headache until during cardiac stress test when her BP nimo high and had similar pounding headache, improved after her BP got better. Tolerating diet well. Patient denies such headache in the past. Likely secondary to high blood pressure prior to arrival. Likely Type II NSTEMI/possible hypertensive urgency:likely 2/2 hypertensive urgency/undiagnosed. Admitting troponin elevated at 171, with up trended and then again down trended. EKG at admission and follow-up EKG with no acute ST or T changes, echo with no regional wall motion abnormality. Echo reviewed. Patient underwent stress test, no stress-induced ischemia noted. But she had high blood pressure and associated pounding headache similar to the presentation headache. Her headache got better with resolution of her blood pressure. She is to continue her current lisinopril in the morning and maintain blood pressure measurement twice a day/log to take to primary care physician for close mo nitoring/management of her blood pressure/hypertension. Patient reports having a lot of life stressors, counseled regarding minimizing life stressors. Other chronic medical conditions: 3. Diabetes: Hold her home metformin. Placed on insulin sliding .Will Follow the blood sugars. A1C 6.4. 4. History of hypertension: Continue herlisinopril.. Will monitor the blood pressure. 5. Hyperlipidemia: On statin. 6. Depression and anxiety: Continue her duloxetine and on Remeron as needed. 7. Chronic kidney disease stage III: stable DVT prophylaxis: Heparin subcu Full code Patient being discharged to home with following instruction at the point of discharge: Follow-up with your primary care physician within a week time and likely you will need labs CBC/CMP/magnesium/phosphorus. You came in with headache, your heart enzyme [troponin] was elevated which came back down. After few hypertensive readings, your blood pressure was low normal. You underwent EKG testing/echo testing/stress testing with no indication of acute coronary syndrome. During stress testing, your blood pressure was elevated giving you the same exact feeling of headache that you came in with. Hence you might have fluctuating blood pressure. Advised to continue to take your lisinopril at current dose but in the morning. Advise to maintain blood pressure measurement 2-3 times a day and maintain a log to take to primary care office for close monitoring of her blood pressure management/prescription. Try to minimize life stressors. Same has been communicated to you prior to discharge. Take your medications as prescribed. Home Health Attestation I certify that this patient is under my care and that I, or a physicians psychiatric nursing assistant working with me, had a face to-face encounter that meets the home health [id number] encounter requirements with this patient. The encounter with the patient was in whole, or in part, for the following medical condition, which is the primary reason for home health care (list medical condition): I certify that, based on my findings, the following services are medically necessary home health services: My clinical findings support the need for the above services because: Further, I certify that my clinical findings support that this patient is thanh ebound (i.e. absences from home require considerable and taxing effort and are for medical reasons or zoroastrianism services or infrequently or of short duration when for other reasons) because: Certification for Home Health Services: Based on the above findings, I certify that this patient is confined to the home and needs intermittent penitentiary care, physical therapy and/or speech therapy or continues to need occupational therapy. The patient is under my care, and I have initiated the establishment of the plan of care. This patient will be followed by a physician who will periodically review the plan of care. Total Time Total Time Spent Total Time Spent (In Minutes): 45 Discharge Plan Discharge Items Patient Disposition: Home - Self-Care Reason For Visit: N/V Discharge Diagnosis: Headache likely secondary to hypertensive urgency Likely type II NSTEMI secondary to hypertensive urgency Activity: Resume your previous activity Non-emergency contact: Primary Care Provider Call non-emergency contact if: you have any medication questions Follow-up/Referrals: Lisandra Beard DO [Primary Care Provider] - (Date & Time 04/18/2023 1:10 PM Provider Pharmacist [address] [place] [facility] [address] [place] Date & Time 04/18/2023 1:40 PM Provider Lisandra Beard Department Family [facility] [address] [facility] ) Diet: Heart Healthy and Low Sodium (2gm) Addtl Attending Provider Instructions: Follow-up with your primary care physician within a week time and likely you will need labs CBC/CMP/magnesium/phosphorus. You came in with headache, your heart enzyme [troponin] was elevated which came back down. After few hypertensive readings, your blood pressure was low normal. You underwent EKG testing/echo testing/stress testing with no indication of acute coronary syndrome. During stress testing, your blood pressure was elevated giving you the same exact feeling of headache that you came in with. Hence you might have fluctuating blood pressure. Advised to continue to take your lisinopril at current dose but in the morning. Advise to maintain blood pressure measurement 2-3 times a day and maintain a log to take to primary care office for close monitoring of her blood pressure management/prescription. Try to minimize life stressors. Same has been communicated to you prior to discharge. Take your medications as prescribed. Pending Studies at Discharge: No Stand-Alone Forms: My [facility], Smoking Cessation Medications and DC Order Prescriptions: Continued atorvastatin [Lipitor] 20 mg tablet 20 mg PO PM duloxetine 20 mg capsule,delayed release(DR/EC) 20 mg PO QAM Xiidra 5 % Dropperette 1 drp OPB BID Rx Instructions: both eyes metformin 500 mg tablet extended release 24 hr 1,000 mg PO BID multivitamin Tablet 1 tab PO QPM cyanocobalamin (vitamin B-12) [Vitamin B-12] 500 mcg Tablet 500 mcg PO QAM mirtazapine [Remeron] 15 mg Tablet 7.5 - 15 mg PO HS PRN (Reason: Insomnia) melatonin 5 mg Tablet 10 mg PO HS PRN (Reason: Insomnia) nystatin 100,000 unit/gram cream 1 applic TOPICAL BID PRN (Reason: Rash) Vaniqa 13.9 % Cream 1 applic TOPICAL BID PRN (Reason: Skin Irritation) Rx Instructions: space doses >= 8 hrs apart and at least 5 min after hair removal; avoid water for 4hr after any dose Salonpas Deep Relieving 3.1-15-10 % Gel 1 ea TOPICAL BID PRN (Reason: Pain) lidocaine 5 % Adhesive Patch,Medicated 1 patch TOPICAL DAILY PRN (Reason: Pain) Rx Instructions: leave on most painful area for up to 12 hrs meclizine 25 mg tablet 25 mg PO TID PRN (Reason: dizziness) Qty: 20 0RF Changed lisinopril 5 mg Tablet 5 mg PO DAILY Qty: 30 0RF Discharge Orders: Discharge Order (Routine); Ordered 04/12/23 Ordered By: Lolita Cannon/Other Patient Handouts: Managing Type 2 Diabetes Admission Data Admit Date/Time: 04/11/23 00:37 Attending Provider: Lolita Liao Admit Provider: Geremias Mena Primary Care Provider: Lisandra Beard Other Providers: Geremias Mena
== END 2023-04-12 17:39 | disposition home or self-care (01) ==
LOC: EDINP 21:47 → ED 21:47 → EDINP 04-11 04:13 → 2N 04-11 04:13

== ENCOUNTER 2024-05-26 07:52 | Inpatient (IN) ==
--- NOTE | 2024-05-06 12:12 | PAT Medication Instructions ---
Medication Instructions Date of Service May 06, 2024 Home Medications atorvastatin 20 mg tablet (Lipitor) 20 mg PO HS lifitegrast 5 % eye drops in a dropperette (Xiidra) 1 drp OPB BID cyanocobalamin (vitamin B-12) 500 mcg tablet (Vitamin B-12) 500 mcg PO QAM mirtazapine 15 mg tablet (Remeron) 7.5 - 15 mg PO HS PRN Insomnia multivitamin 1 tab PO QPM melatonin 5 mg tablet 10 mg PO HS PRN Insomnia camphor 3.1 %-methyl salicylate 15 %-menthol 10 % topical gel (Salonpas Deep Relieving) 1 ea topical BID PRN Pain eflornithine 13.9 % topical cream (Vaniqa) 1 applic topical BID PRN Skin Irritation lidocaine 5 % topical patch 1 patch topical DAILY PRN Pain nystatin 100,000 unit/gram topical cream 1 applic topical BID PRN Rash linagliptin 5 mg tablet (Tradjenta) 5 mg PO QAM duloxetine 20 mg capsule,delayed release 20 mg PO QAM lisinopril 5 mg tablet 5 mg PO QAM polydextrose 2.5 gram chewable tablet (FiberWell) 2.5 g PO DAILY pregabalin 25 mg capsule 25 mg PO BID psyllium husk 3.4 gram/5.4 gram oral powder (Metamucil) 1 tbsp PO Q2D PRN Constipation vitamin B complex 1 cap PO DAILY Continue as directed lidocaine 5 % topical patch 1 patch topical DAILY PRN Pain (avoid placement near surgery site prior to surgery) STOP taking 24 hours before surgery camphor 3.1 %-methyl salicylate 15 %-menthol 10 % topical gel (Salonpas Deep Relieving) 1 ea topical BID PRN Pain eflornithine 13.9 % topical cream (Vaniqa) 1 applic topical BID PRN Skin Irritation nystatin 100,000 unit/gram topical cream 1 applic topical BID PRN Rash DO NOT take the morning of surgery cyanocobalamin (vitamin B-12) 500 mcg tablet (Vitamin B-12) 500 mcg PO QAM linagliptin 5 mg tablet (Tradjenta) 5 mg PO QAM lisinopril 5 mg tablet 5 mg PO QAM polydextrose 2.5 gram chewable tablet (FiberWell) 2.5 g PO DAILY psyllium husk 3.4 gram/5.4 gram oral powder (Metamucil) 1 tbsp PO Q2D PRN Constipation vitamin B complex 1 cap PO DAILY Take morning of surgery With a small sip of water, OTHERWISE NOTHING TO EAT OR DRINK AFTER MIDNIGHT: lifitegrast 5 % eye drops in a dropperette (Xiidra) 1 drp OPB BID duloxetine 20 mg capsule,delayed release 20 mg PO QAM pregabalin 25 mg capsule 25 mg PO BID Take evening before surgery atorvastatin 20 mg tablet (Lipitor) 20 mg PO HS lifitegrast 5 % eye drops in a dropperette (Xiidra) 1 drp OPB BID mirtazapine 15 mg tablet (Remeron) 7.5 - 15 mg PO HS PRN Insomnia (if needed) multivitamin 1 tab PO QPM melatonin 5 mg tablet 10 mg PO HS PRN Insomnia (if needed) pregabalin 25 mg capsule 25 mg PO BID psyllium husk 3.4 gram/5.4 gram oral powder (Metamucil) 1 tbsp PO Q2D PRN Constipation (if needed) Other Notes If you have any questions please call us at [phone] or [phone] or [phone] or [phone]
--- NOTE | 2024-05-13 13:18 | Anesthesiology Consultation ---
Date of Service May 13, 2024 Assessment & Plan (1) Encounter for pre-operative examination: - Check BSG AM DOS - Infectious disease screening: Per assessment on 05/13/24: No known recent infectious disease contacts or current infectious disease symptoms. - PCP visit (05/19/24): "She did break a tooth recently but no infection. She did have her pre-op assessment at [facility]. Lab studies and EKG okay.. She is able to tolerate 4 METS of activity.. She is medically maximized for OR pending repeat BMP.. Was slightly hyponatremic on labs done at hospital. Want to make sure no drop from that." > Repeat labs done 05/19/24 show normalized sodium at 137 (improved from 135). Chart Review Chart Review: Acceptable Risk for Surgery and Patient seen in Pre Admission Testing Teaching & Discussion Pre-Anesthesia Teaching/Discussion Notes: Instructed NPO after midnight before surgery,except medications with 15 cc of water. Medication instructions provided according to the PAT guidelines. History Surgery Operation Date: 05/26/24 09:35 Proposed Procedures p C4-C6 Anterior Cervical Discectomy and Fusion, C5 Corpectomy, Spinal Cord Monitoring - Taye Hernandez, Height/Weight Height: 5 ft 3.5 in Weight: 59 kg Allergies Allergy/AdvReac Type Severity Reaction Status Date / Time gabapentin Allergy Intermediate Nausea, Verified 05/08/24 13:31 dizziness, forgetfulness diphenhydramine Allergy Unknown Anxiety Verified 05/06/24 09:46 nickel Allergy Unknown Rash Verified 05/06/24 09:46 Medications Home Medications Medication Instructions Recorded Confirmed Last Taken atorvastatin 20 mg tablet (Lipitor) 20 mg PO HS 08/19/18 05/06/24 06/24/21 lifitegrast 5 % eye drops in a 1 drp OPB BID 10/13/19 05/06/24 11/09/19 dropperette (Xiidra) cyanocobalamin (vitamin B-12) 500 500 mcg PO QAM 10/05/21 05/06/24 Unknown mcg tablet (Vitamin B-12) mirtazapine 15 mg tablet (Remeron) 7.5 - 15 mg PO HS PRN Insomnia 10/05/21 05/06/24 Unknown multivitamin 1 tab PO QPM 10/05/21 05/06/24 Unknown melatonin 5 mg tablet 10 mg PO HS PRN Insomnia 04/10/23 05/06/24 Unknown camphor 3.1 %-methyl salicylate 15 1 ea topical BID PRN Pain 04/11/23 05/06/24 Unknown %-menthol 10 % topical gel (Salonpas Deep Relieving) eflornithine 13.9 % topical cream 1 applic topical BID PRN Skin 04/11/23 05/06/24 Unknown (Vaniqa) Irritation lidocaine 5 % topical patch 1 patch topical DAILY PRN Pain 04/11/23 05/06/24 Unknown nystatin 100,000 unit/gram topical 1 applic topical BID PRN Rash 04/11/23 05/06/24 Unknown cream linagliptin 5 mg tablet (Tradjenta) 5 mg PO QAM 12/24/23 05/06/24 Unknown duloxetine 20 mg capsule,delayed 20 mg PO QAM 05/06/24 05/06/24 Unknown release lisinopril 5 mg tablet 5 mg PO HS 05/06/24 05/13/24 Unknown polydextrose 2.5 gram chewable 2.5 g PO DAILY 05/06/24 05/06/24 Unknown tablet (FiberWell) pregabalin 25 mg capsule 25 mg PO BID 05/06/24 05/06/24 Unknown psyllium husk 3.4 gram/5.4 gram 1 tbsp PO Q2D PRN Constipation 05/06/24 05/06/24 Unknown oral powder (Metamucil) vitamin B complex 1 cap PO DAILY 05/06/24 05/06/24 Unknown hydrocodone 5 mg-acetaminophen 325 1 tab PO Q6H PRN Pain 05/13/24 05/13/24 Unknown mg tablet tramadol 50 mg tablet 50 mg PO BID PRN Pain 05/13/24 05/13/24 Unknown Past Medical History Medical History Ambulatory dysfunction Uses rollator to walk Anxiety Chronic kidney disease, stage 3a Coccydynia Chronic Depression Diabetes mellitus, type 2 NIDDM DVT (deep venous thrombosis) ~1994 (r/t ovarian cancer) [place] filter placed Dyslipidemia [place] filter in place ~1994 Hypertension Insomnia Kidney stone on left side Hx Lumbar facet joint syndrome L4-L5 and lower spine Lumbar radiculitis Migraine Hx Myofascial pain Osteoarthritis Ovarian cancer ~1994- surgery/"maybe chemo" Scoliosis Thoracic spine x-ray 02/2022: Mild S-shaped scoliosis of the thoracolumbar spine Spinal stenosis L4-L5 Thoracic facet syndrome Exercise / Class Metabolic Activity III < 4 Walking/Shop/Light housework Past Family History Family History Brother Diabetes Past Surgical History Surgical History H/O laminectomy 1978, L3-4 History of appendectomy History of breast biopsy Right History of section History of cholecystectomy History of colonoscopy History of endoscopic sinus surgery 30 years ago History of hysterectomy Total (r/t ovarian cancer) History of surgery RFA Hx of bilateral cataract extraction Past Anesthesia History No Hx of Anesthesia Complications and No Family Hx of Anesthesia Complications History of PONV No Hx of PONV and Hx of Motion Sickness Social History Smoking Status: Never smoker Do You Dip or Chew Tobacco: No Hx Alcohol Use: No Hx Substance Use: No substance use type: does not use Review of Systems Patient denies chest pain, shortness of breath, dyspnea on exertion, fever, chills, cough, wheezing, palpitations. Physical Exam Vital Signs BP 111/65 P 56 TEMP 98.1 SP02 95%RA RESP 18 Physical Full cervical extension range of motion. Full TMJ range of motion. TMD 3 finger breaths Mallampati Score 1 Dentition: intact, upper front implants, right upper side "broken" tooth Lungs: clear throughout to auscultation Cardiac: regular rate and rhythm, no murmurs noted Spine: normal Carotid arteries: negative bruit Extremities: no LE edema Lab Results Anesthesia Preop Results Results Anesthesia Widget: WBC 6.42 K/ul (4.8-10.8) 05/13/24 Hgb 12.4 g/dl (12.0-16.0) 05/13/24 Hct 36.2 % (37.0-47.0) L 05/13/24 Plt 170 K/uL (130-400) 05/13/24 Na 135 mmol/L (136-145) L 05/13/24 K 4.0 mmol/L (3.5-5.1) 05/13/24 Cl 101 mmol/L (98-107) 05/13/24 CO2 30 mmol/L (21-32) 05/13/24 BUN 20 mg/dl (6-23) 05/13/24 Creat 0.82 mg/dl (0.6-1.2) 05/13/24 Glucose Level 103 mg/dl (70-99(Fasting)) H 05/13/24 PT 11.0 Seconds (9.0-12.0) 05/13/24 PTT 27 Seconds (21-31) 05/13/24 INR 1.0 (0.9-1.1) 05/13/24 HA1c 5.9 % (4.5-5.6) H 05/13/24 Urine Color Yellow 05/13/24 Urine Appearance Clear (Clear) 05/13/24 Urine pH 6.5 (4.5-7.5) 05/13/24 Urine Specific [place] 1.017 (1.000-1.030) 05/13/24 Urine Protein Negative (Negative) 05/13/24 Urine Glucose (UA) Negative (Negative) 05/13/24 Urine Ketones Negative (Negative) 05/13/24 Urine Blood Negative (Negative) 05/13/24 Urine Nitrite Negative (Negative) 05/13/24 Urine Bilirubin Negative (Negative) 05/13/24 Urine Urobilinogen Negative (Negative) 05/13/24 Urine Leukocyte Esterase Negative (Negative) 05/13/24 Blood Type A Positive 05/13/24 Antibody Screen NEGATIVE 05/13/24 Testing Laboratory Results 05/19/24 SODIUM 137 POTASSIUM 4.6 CHLORIDE 101 CO2 23 BUN 18 CREATININE 0.8 GLUCOSE 98 Electrocardiogram Date: 05/13/24 SB at 55bpm. "Otherwise normal ECG" No significant change compared to 04/12/2023 per hand tube bender comparison. Chest X-Ray Date: 05/13/24 FINDINGS: PA and lateral chest radiographs are compared to study dated 03/19/2022 and correlated with chest CT dated 10/14/2019.. The cardiomediastinal silhouette is unremarkable. There is chronic eventration of the right hemidiaphragm and right basilar atelectasis. The lungs and pleural spaces are otherwise clear. There is no pneumothorax. The skeletal structures are osteopenic. The bony thorax appears intact. Cholecystectomy clips are noted in the right upper sofia drant. IMPRESSION: No active disease in the chest. Echocardiogram Date: 04/11/23 EF 60-65%. LV wall motion is normal. Mild cLVH. Grade I DD. No significant valvular disease. Stress Test Date: 04/12/23 "Normal stress echocardiogram." 7.2 METS. 84% MPHR.Stress echocardiography negative for ischemia. LV systolic function at rest and stress was normal. No wall motion abnormalities induced.
[~2024-05-26 07:52] MED LIST changes: -ATOR-22 PO; -CHOL1000 PO; -CYAN500T PO; -CYCL0.052 OP; +DEXAMETHASONE SOD INJ 4 MG/ML VIAL ONE; -EFLO13.925 TOP; -ESTCR PV; -FLUO40CA8 PO; -GLIP-197 PO; +GLYCOPYRROLATE 0.2 MG/ML VIAL ONE; -KLN/5 PO; +LIDOCAINE 2% 2 ML VIAL/AMP(20MG/ML) INFIL ONE; -LISI-729 PO; -METF-383 PO; +MIDAZOLAM HCL 1 MG/ML 2ML VIAL ONE; -NF656 TOP; +ONDANSETRON INJ 2 MG/ML 2 ML VIAL ONE; +PROPOFOL IV EMULSION 10 MG/ML 20 ML VIAL IV ONE; -RIZA10TA18 PO; +ROCURONIUM BROMIDE 10 MG/ML 5 ML VIAL IV ONE; -[UNRECOGNIZED DRUG - OTHER]; +fentaNYL citrate PF 100 MCG/2 ML VIAL ONE
[2024-05-26] MEDS ORDERED: SUGAMMADEX SODIUM 200 MG/2 ML VIAL IV ONE (08:25)
--- NOTE | 2024-05-26 09:08 | History & Physical Bridge Note ---
Date of Service May 26, 2024 History & Physical Bridge Note I have examined the patient, reviewed the History & Physical and in the interval since the performance of the History & Physical I have noted the following changes of clinical significance: no changes noted
--- NOTE | 2024-05-26 09:09 | History & Physical Report ---
Date of Service May 26, 2024 Assessment & Plan (1) Myelopathy concurrent with and due to spinal stenosis of cervical region: Plan: Anterior cervical discectomy and fusion C4 to C 6 with C5 corpectomy History of Present Illness Chief Complaint: Neck and arm pain Primary Care Provider: Lisandra Beard DO This is a 74-year-old female presents with chronic persistent neck and arm pain a failed course of nonoperative care she is here for surgical invention. Allergies Allergy/AdvReac Type Severity Reaction Status Date / Time gabapentin Allergy Intermediate Nausea, Verified 05/26/24 08:34 dizziness, forgetfulness diphenhydramine Allergy Unknown Anxiety Verified 05/26/24 08:34 nickel Allergy Unknown Rash Verified 05/26/24 08:34 Home Medications Medication Instructions Recorded Confirmed Type atorvastatin 20 mg tablet (Lipitor) 20 mg PO HS 08/19/18 05/26/24 History lifitegrast 5 % eye drops in a 1 drp OPB BID 10/13/19 05/26/24 History dropperette (Xiidra) cyanocobalamin (vitamin B-12) 500 500 mcg PO QAM 10/05/21 05/26/24 History mcg tablet (Vitamin B-12) mirtazapine 15 mg tablet (Remeron) 7.5 - 15 mg PO HS PRN Insomnia 10/05/21 05/26/24 History multivitamin 1 tab PO QPM 10/05/21 05/26/24 History melatonin 5 mg tablet 10 mg PO HS PRN Insomnia 04/10/23 05/26/24 History camphor 3.1 %-methyl salicylate 15 1 ea topical BID PRN Pain 04/11/23 05/26/24 History %-menthol 10 % topical gel (Salonpas Deep Relieving) eflornithine 13.9 % topical cream 1 applic topical BID PRN Skin 04/11/23 05/26/24 History (Vaniqa) Irritation lidocaine 5 % topical patch 1 patch topical DAILY PRN Pain 04/11/23 05/26/24 History nystatin 100,000 unit/gram topical 1 applic topical BID PRN Rash 04/11/23 05/26/24 History cream linagliptin 5 mg tablet (Tradjenta) 5 mg PO QAM 12/24/23 05/26/24 History duloxetine 20 mg capsule,delayed 20 mg PO QAM 05/06/24 05/26/24 History release lisinopril 5 mg tablet 5 mg PO HS 05/06/24 05/26/24 History polydextrose 2.5 gram chewable 2.5 g PO DAILY 05/06/24 05/26/24 History tablet (FiberWell) pregabalin 25 mg capsule 25 mg PO BID 05/06/24 05/26/24 History psyllium husk 3.4 gram/5.4 gram 1 tbsp PO Q2D PRN Constipation 05/06/24 05/26/24 History oral powder (Metamucil) vitamin B complex 1 cap PO DAILY 05/06/24 05/26/24 History hydrocodone 5 mg-acetaminophen 325 1 tab PO Q6H PRN Pain 05/13/24 05/26/24 History mg tablet tramadol 50 mg tablet 50 mg PO BID PRN Pain 05/13/24 05/26/24 History Past Med/Surg History Problem List (Updated 05/26/24 @ 09:09 by Taye Hernandez DO) Myelopathy concurrent with and due to spinal stenosis of cervical region Encounter for pre-operative examination Medical History Ambulatory dysfunction Uses rollator to walk Anxiety Chronic kidney disease, stage 3a Coccydynia Chronic Depression Diabetes mellitus, type 2 NIDDM DVT (deep venous thrombosis) ~1994 (r/t ovarian cancer) [place] filter placed Dyslipidemia [place] filter in place ~1994 Hypertension Insomnia Kidney stone on left side Hx Lumbar facet joint syndrome L4-L5 and lower spine Lumbar radiculitis Migraine Hx Myofascial pain Osteoarthritis Ovarian cancer ~1994- surgery/"maybe chemo" Scoliosis Thoracic spine x-ray 02/2022: Mild S-shaped scoliosis of the thoracolumbar spine Spinal stenosis L4-L5 Thoracic facet syndrome Surgical History H/O laminectomy 1978, L3-4 History of appendectomy History of breast biopsy Right History of section History of cholecystectomy History of colonoscopy History of endoscopic sinus surgery 30 years ago History of hysterectomy Total (r/t ovarian cancer) History of surgery RFA Hx of bilateral cataract extraction Family History Brother Diabetes Social History Smoking Status: Never smoker Second Hand Exposure: No; Do You Dip or Chew Tobacco: No; Tobacco Cessation Education Requested by Patient: No Hx Alcohol Use: No Hx Substance Use: No Preferred Language: Czech Communication Ability: Effective Visual Impairment: No Limitations Hearing Ability: Normal Director Of Athletics Required: No Beliefs That Will Affect Care: None marital status: Current Living Situation: Alone current occupational status: retired 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
[2024-05-26] MEDS: LR 60ML/HR IV SCH (09:12)
[2024-05-26] MEDS: ACETAMINOPHEN 500 MG TAB PO SCH (09:12)
[2024-05-26] MEDS: LR 15ML/HR IV SCH (09:12)
[2024-05-26] MEDS: ceFAZolin 2000MG 2,000 MG/15 ML SYR IV SCH (09:38)
[2024-05-26] MEDS: ceFAZolin 330 MG/ML 1 GM VIAL ONE (10:20)
[2024-05-26] MEDS ORDERED: ePHEDrine sulfate 50 MG/ML AMP IV PRN (10:21)
[2024-05-26] MEDS ORDERED: PROMETHAZINE HCL 6.25 MG in SODIUM CHLORIDE 0.9% 50 ML IV PRN (10:21)
[2024-05-26] MEDS ORDERED: fentaNYL citrate PF 100 MCG/2 ML VIAL ONE (10:21)
[2024-05-26] MEDS ORDERED: ATROPINE SULFATE 0.1 MG/ML 10ML SYR IV PRN (10:21)
[2024-05-26] MEDS ORDERED: ONDANSETRON INJ 2 MG/ML 2 ML VIAL IV PRN (10:21)
[2024-05-26] MEDS ORDERED: HYDROmorphone INJ 2 MG/ML SYR/VIAL IV PRN (10:21)
[2024-05-26] MEDS ORDERED: fentaNYL citrate PF 100 MCG/2 ML VIAL IV PRN (10:21)
--- NOTE | 2024-05-26 11:19 | Operative Report ---
Post Operative Report Pre & Post Diagnosis Operation Date: 05/26/24 09:35 Pre-Op Diagnosis: Cervical Myelopathy, Cervical Radiculopathy Post-Op Diagnosis: Cervical Myelopathy, Cervical Radiculopathy I identified the patient and participated in the time-out.: Yes Procedure Operation Date: 05/26/24 09:35 Actual Procedures #1 anterior cervical corpectomy with bilateral foraminotomies C5. #2 anterior cervical arthrodesis C4-C6. #3 placement of 21 mm peek cage C4-C6. #4 placement of locally harvested morselized autograft combined with os design bone graft interbody cage. #5 application of globus plate and screws from C4 to C6. Surgeon Taye Hernandez, Specimen Boss Mona Rice Estimated Blood Loss 50 Findings Consistent with Post-Op Diagnosis Specimens None Indications This is a 74-year-old female presents above-mentioned diagnosis of failed course of nonoperative care is here for surgical invention. Description of Procedure Patient was met with identified informed consent obtained. Patient was then taken to the operative suite underwent patient placed in spine position on the Pasha table with the head in the Gar overhead crane inspector. All bony prominences well-padded eyes inspected to ensure no external pressure placed upon them. This point the anterior cervical spine was prepped and draped in normal sterile fashion. The assistance of fluoroscopy identified the C 5 vertebral body and a transverse incision was placed along the right anterior aspect the cervical spine overlying this region. Blunt dissection with the assistance of bipolar electrocautery is then performed down to expose the anterior cervical spine from C5-C6. Self-retaining retractors placed. Informed complete discectomy of C4-C5 out to the uncovertebral notch bilaterally followed by C5-C6. [place] distracting pins were then placed in C4 and C6 9 distracted across the C5 vertebral body. Complete corpectomy was then performed including removal of all posterior annular fibers longitudinal ligament bilateral foraminotomies at both levels performed for complete decompression. The endplates were then burred to subcortical bleeding bone and a 21 mm peek cage filled with locally harvested morselized autograft and os design bone graft tapped in position. Distracting and pressors removed. A globus plate and screws applied with the assistance of fluoroscopy. The incision was then copiously irrigated explored to ensure no damage to surrounding structures remaining bleeding. 10 round HAMILTON drain inserted. The incision was then closed with 2 Vicryl in the fascia and 4 Monocryl for final closure. Steri-Strips sterile dressing placed. Patient was then awakened taken the PACU stable condition. Please note spinal cord monitoring was utilized at the procedure no changes noted. Kayli Rice was present at the entire surgeon while the patient positioning complex portions of the surgery and final skin closure. I attest to the content of the Intraoperative Record and any orders documented therein. Any exceptions are noted below.
--- NOTE | 2024-05-26 12:40 | Anesthesiology Progress Note ---
Date of Service May 26, 2024 Anesthesia Post Procedure Vital Signs Vital Signs: Temp Pulse Resp BP Pulse Ox O2 Del Method O2 Flow Rate 05/26/24 12:30 62 12 158/73 H 98 Room Air 05/26/24 12:20 36.3 C L 62 12 170/74 H 100 Room Air 05/26/24 12:10 64 12 173/77 H 98 Room Air 05/26/24 12:00 64 14 174/76 H 96 Oxymask 2 05/26/24 11:50 65 14 163/74 H 96 Oxymask 4 05/26/24 11:40 69 14 189/72 H 100 Oxymask 6 05/26/24 11:30 36.8 C 65 16 170/69 H 100 Oxymask 6 05/26/24 08:42 36.5 C 67 18 122/54 L 98 Room Air Pain Intensity Back: Pain Intensity: 7 Transfer of Care Handoff Completed per policy Notes Mental Status: alert / awake / arousable and participated in evaluation Patient Amnestic to Procedure: Yes Nausea / Vomiting: adequately controlled Pain: adequately controlled Airway Patency, RR, SpO2: stable & adequate BP & HR: stable & adequate Hydration State: stable & adequate Anesthetic Complications: no major complications apparent
[2024-05-26] MEDS ORDERED: PROMETHAZINE HCL 12.5 MG in SODIUM CHLORIDE 0.9% 50 ML IV PRN (13:09)
[2024-05-26] MEDS ORDERED: LORazepam 0.5 MG TAB PO PRN (13:09)
[2024-05-26] MEDS ORDERED: NALOXONE HCL 0.4 MG/1 ML VIAL/CARP IV PRN (13:09)
[2024-05-26] MEDS ORDERED: ONDANSETRON 4 MG OD TAB PO PRN (13:09)
[2024-05-26] MEDS ORDERED: bisacodyL 10 MG SUPP PR PRN (13:09)
[2024-05-26] MEDS ORDERED: traMADol HCL 50 MG TABLET PO PRN (13:09)
[2024-05-26] MEDS ORDERED: SOD PHOSPHATE/SOD BIPHOSPHATE ENEMA 132 ML BTL PR PRN (13:09)
[2024-05-26] MEDS ORDERED: hydrOXYzine HCl 25 MG TAB PO PRN (13:09)
[2024-05-26] MEDS ORDERED: DO NOT ADMINISTER PNEUMOCOCCAL VACCINE PRN (13:09)
[2024-05-26] MEDS ORDERED: ACETAMINOPHEN 1,000 MG/100 ML VIAL IV PRN (13:09)
[2024-05-26] MEDS ORDERED: HYDROmorphone INJ 0.5 MG/0.5 ML SYR IV PRN (13:09)
[2024-05-26] MEDS ORDERED: MAGNESIUM HYDROXIDE SUSP 30 ML UDC PO PRN (13:09)
[2024-05-26] MEDS ORDERED: dexAMETHasone 8 MG in SYRINGE 0 ML IV PRN (13:09)
[2024-05-26] MEDS ORDERED: DO NOT ADMINISTER FLU VACCINE PRN (13:09)
[2024-05-26] MEDS ORDERED: RACEPINEPHRINE 2.25% NEBU SOLN 0.5 ML VIAL INH PRN (13:09)
[2024-05-26] MEDS ORDERED: diphenhydrAMINE Capsule 25 MG CAP PO PRN (13:09)
[2024-05-26] MEDS ORDERED: ACETAMINOPHEN 500 MG TAB PO PRN (13:09)
[2024-05-26] MEDS ORDERED: METOCLOPRAMIDE HCL INJ 5 MG/ML 2 ML VIAL IV PRN (13:09)
[2024-05-26] MEDS ORDERED: ALUMINUM/MAGNESIUM SUSP 30 ML UDC PO PRN (13:09)
[2024-05-26] MEDS ORDERED: LORazepam 0.5 MG in SYRINGE 0.25 ML IV PRN (13:09)
[2024-05-26] MEDS ORDERED: FAMOTIDINE 20 MG TAB PO PRN (13:09)
[2024-05-26] MEDS: LACTATED RINGER'S 1,000 ML IV SCH (13:10)
[2024-05-26] MEDS ORDERED: ARTIFICIAL TEARS OP PRN (13:23)
[2024-05-26] MEDS ORDERED: GLUCOSE 10 TAB/TUBE PO PRN (13:30)
[2024-05-26] MEDS ORDERED: GLUCAGON FOR INJ 1 MG VIAL IM PRN (13:30)
[2024-05-26] MEDS ORDERED: DEXTROSE 50% 50 ML SYRINGE IV PRN (13:30)
[2024-05-26] MEDS ORDERED: GLUCOSE 40% GEL 15 GM TUBE PO PRN (13:30)
[2024-05-26] MEDS ORDERED: CARBOHYDRATES FOR HYPOGLYCEMIA PO PRN (13:30)
[2024-05-26] MEDS: HYDROmorphone INJ 1 MG/ML SYRINGE IV PRN (13:33)
--- OUTSIDE RECORDS SUMMARY | 2024-05-26 13:52 | External Medical Summary | Summary of Care ---
Author Name Unknown Organization [facility] Address [address] [place] [address] Phone [phone] Care Team Providers Care C D Still Operator Name Role Phone Lisandra Beard DO Primary Care Provider [phone] Reason for Visit * Reason Onset Date Comments Referral 05/20/202405/20, 05/21 Encounter Details Date Type Department Care Team (Late st Contact Info) Description 05/20/2024 Telephone Family Practice [address] [place] [phone] Lisandra Beard DO [address] [place], [place] [id number] Referral (05/20, 05/21) Allergies Active Allergy Reactions Criticality Noted Date Comments Diphenhydramine-Zinc Acetate 012 Shaking; incoherent (only in large doses) Diphenhydramine 10/10/2021 Other reaction(s): Anxiety Other Reaction(s): Anxiety, Other (See Comments) Gabapentin High 12/05/2016 Unable to speak,see well enough Other reaction(s): Nausea,dizziness and forgrtfullness. Other Reaction(s): Nausea,dizziness and forgrtfullness., Other (See Comments) Unable to speak,see well enough Unable to speak,see well enough Other reaction(s): Nausea,dizziness and forgrtfullness. Nickel Rash Low 10/10/2021 Other reaction(s): Rash documented as of this encounter (statuses as of 05/21/2024) Medications Medication Sig Dispensed Refills Start Date End Date Status Bismuth Subsalicylate 262 MG Oral Tablet Chewable as needed. Acti ve Liniments (SALONPAS ARTHRITIS PAIN RELIEF) PADSIndications:Arth ritis pain Apply 1 Patch topically to affected area as needed for Pain or Other (arthritic discomort of back and/or knees.). 5 Each 2 11/26/2017 Active Nutritional Supplements (GLUCERNA ADVANCE SHAKE) LIQDIndications:Caitlin l illness Take 1 Bottle by mouth daily as needed for Other (during illness with poor appetite). 12 Bottle 6 07/15/2018 Active Diclofenac Sodium 1 % External GelIndications:Spina l stenosis of lumbar region with neurogenic claudication Apply 2 g topically to affected area 3 times a day as needed for Pain. 100 g 5 11/08/2020 Active Additional Information Patient not taking.Reported on 05/19/2024 Rizatriptan Benzoate 10 MG Oral Tablet DisintegratingIndica tions:Migraine variant DISSOLVE 1 TAB ON TONGUE AT HEADACHE ONSET, MAY REPEAT IN 2 HRS, UP TO 2 TIMES, MAX 3 TABS/24 HRS 6 Tab 13 07/12/2021 Active Xiidra 5 % Ophthalmic Solution 02/04/2022 Activ e Multivitamin Women 50+ Oral Tablet Take 1 Tablet by mouth daily. Active Melatonin 5 MG Oral Capsule Take 2 Capsules by mouth at bedtime. Active Fiber Diet Oral Tablet Take 2 Tablets by mouth in the morning. Active NATURAL SUPPLEMENT Take 2 Capsules by mouth in the morning. Nerve Control 911 + Marshmallow Root. Active NATURAL SUPPLEMENT Take 2 Capsules by mouth in the morning. K2M7 with Vit D. Active Benfotiamine Multi-B Oral Capsule Take 1 Tablet by mouth. 600 (4 in 1: turmeric, ashwaganda, gymnime elijah) Active Magnesium Citrate 200 MG Oral Tablet Take 1 Tablet by mouth in the morning. 250 mg - taking at night . Active Dexcom G7 SensorIndications:Ty pe 2 diabetes mellitus with hemoglobin A1c goal of less than 7.0% (HCC) Use to monitor blood sugars continuously , changing every 10 days, E11.9 9 Each 3 07/26/2023 Active Dexcom G7 Rfid Manager DeviceIndications:Ty pe 2 diabetes mellitus with hemoglobin A1c goal of less than 7.0% (HCC) Use to monitor blood sugars continuously E11.9 1 Each 07/26/2023 Active Nystatin 145553 UNIT/GM External Cream apply topically twice daily as needed for rash 30 g 3 08/02/2023 Active Ketotifen Fumarate 0.025 % Ophthalmic Solution 1 Drop in the morning and 1 Drop before bedtime. Active Platina [place] Pain Relieving 80-24-16 MG External Patch (Tdqpopa-Fsbxgyj-Eas sicum) Apply topically to affected area. Active OneTouch Verio w/Device KitIndications:Type 2 diabetes mellitus with hemoglobin A1c goal of less than 7.0% ([facility]) Use once daily to check blood sugars. Dx E11.9 1 Kit 08/21/2023 Active OneTouch Verio In Vitro Strip (Glucose Blood) Use as directed one time per day E11.9 100 Strip 3 08/21/2023 Active DULoxetine HCl 20 MG Oral Capsule Delayed Release Particles (Cymbalta) Take 1 Capsule by mouth in the morning. 90 Capsule 09/03/2023 Active Vaniqa 13.9 % External Cream (Eflornithine HCl)Indications:Unwa nted hair Apply to areas of hair density twice daily 45 g 1 09/12/2023 Active Ondansetron HCl 4 MG Oral TabletIndications:Ge neralized abdominal pain,Nausea and vomiting, unspecified vomiting type,Diarrhea, unspecified type Take 1 Tablet by mouth every 6 hours as needed for Nausea. 30 Tablet 09/25/2023 Active tiZANidine HCl 2 MG Oral Capsule TAKE 1-2 CAP BY MOUTH AT NIGHT NEEDED FOR PAIN AND MUSCLE SPASM 90 Capsule 09/26/2023 Active Lisinopril 5 MG Oral Tablet (Prinivil)Indication s:HTN, goal below 140/90,Type 2 diabetes mellitus with hemoglobin A1c goal of less than 7.0% ([facility]) TAKE 1 TABLET BY MOUTH EVERY DAY 90 Tablet 1 11/14/2023 Active Adapalene 0.3 % External GelIndications:Adult acne Apply to whole face nightly 135 g 2 11/26/2023 Active Additional Information Patient not taking.Reported on 05/19/2024 Atorvastatin Calcium 20 MG Oral Tablet (Lipitor)Indications :Hyperlipidemia, unspecified hyperlipidemia type TAKE 1 TABLET BY MOUTH EVERY DAY 90 Tablet 1 12/17/2023 Active Chlorhexidine Gluconate 0.12 % Mouth/Throat Solution (Periogard) 12/19/2023 Acti ve traMADol HCl 50 MG Oral Tablet (Ultram)Indications: Chronic midline low back pain with sciatica, sciatica laterality unspecified Take 1 Tablet by mouth 2 times a day as needed (pain). 60 Tablet 03/18/2024 Active linaGLIPtin 5 MG Oral Tablet (Tradjenta)Indicatio ns:Type 2 diabetes mellitus with hemoglobin A1c goal of less than 7.0% (HCC) Take 1 Tablet by mouth in the morning. 100 Tablet 3 03/25/2024 Active Mirtazapine 7.5 MG Oral Tablet (Remeron)Indications :Sleep difficulties TAKE 1/2 TO 1 TABLET BY MOUTH EVERY NIGHT NEEDED FOR SLEEP PROBLEMS. 90 Tablet 1 04/14/2024 Active Lidocaine-Menthol 4-1 % External Gel (Nervive) Apply topically to affected area. Oral tablet Active NATURAL SUPPLEMENT Take by mouth daily. Sciati flex cream Active Pregabalin 25 MG Oral Capsule (Lyrica)Indications: Cervical radiculopathy Take 1 Capsule by mouth in the morning and 1 Capsule before bedtime. 60 Capsule 1 04/17/2024 Active HYDROcodone-Acetamin ophen 5-325 MG Oral Tablet Take 1 Tablet by mouth every 6 hours as needed for Pain, Severe. (From Dr. Hernandez) 05/13/2024 Active documented as of this encounter (statuses as of 05/21/2024) Active Problems Problem Noted Date Diagnosed Date DDD (degenerative disc disease), cervical 2023 Pure hypercholesterolemia, unspecified Age-related osteoporosis wit h current pathological fracture, unspecified site, initial encounter for fracture 01/08/2024 Type 2 diabetes mellitus with diabetic polyneuro lolly 01/08/2024 Other migraine, not intractable, without status migrainosus 01/08/2024 Senile osteoporosis 01/16/2023 Major depressive disorder, recurrent, moderate 1 Migraine without status migrainosus, not intract able 01/08/2022 Age-related osteoporosis with current pathologic al fracture 02/09/2021 Persistent depressive disorder 08/18/2020 Migraine variant 01/05/2020 Generalized anxiety disorder 01/05/2020 Hyperlipidemia, unspecified 01/05/2020 Spinal stenosis of lumbar re gion with neurogenic claudication 11/05/2019 Gastroesophageal reflux disease without esophagi tis 07/15/2018 Type 2 diabetes mellitus wit h diabetic peripheral angiopathy without gangrene 03/03/2018 Incomplete emptying of bladder 07/17/2016 Vaginal atrophy 07/17/2016 Chronic low back pain 06/23/2016 HTN, goal below 140/90 07/27/2014 Type 2 diabetes mellitus wit h hemoglobin A1c goal of less than 7.0% 09/22/2009 Overview: Per Diabetes Taxonomy. ICD-10 update of inactive term ADVANCE DIRECTIVE INFORMATION 05/29/2008 Overview: Yes, Patient instructed to provide copy of advance directive for provider to review and to be scanned into Electronic Medical Record documented as of this encounter (statuses as of 05/21/2024) Resolved Problems Problem Noted Date Diagnosed Date Resolved Date Major depressive disorder, r ecurrent, moderate 06/27/2021 04/19/2022 Overview: More specified condition of MDD on pl Type 2 diabetes mellitus wit h stage 3 chronic kidney disease and hypertension 06/30/2019 01/08/20 24 Stage 3 chronic kidney disease 11/06/2018 07/09/2019 Overview: ICD-10 update of inactive term Lumbar facet joint syndrome 07/15/2018 05/06/2020 Type 2 diabetes mellitus wit h diabetic peripheral angiopathy without gangrene 03/03/2018 0 03/03/2018 CKD (chronic kidney disease) stage 2, GFR 60-89 ml/min 08/22/2016 06/26/2017 Hematuria, gross 07/17/2016 09/17/2017 Dysuria 07/17/2016 09/17/2017 Urinary frequency 06/23/2016 09/17/2017 Urgency of urination 06/23/2016 017 Interstitial cystitis 06/23/20162023 HTN, goal below 150/90 07/27/201407/27 Kidney disease, chronic, sta ge III (GFR 30-59 ml/min) 01/18/2014 08/19/2015 Overview: Per CKD protocol #1 Unspecified viral infection, in conditions classified elsewhere and of unspecified site 08/23/2012 09/17/2017 Myalgia and myositis 08/23/2012 017 Malaise and fatigue 08/23/2012 09/17/20 17 HTN, goal below 140/80 07/14/201207/27 Overview: Per HTN Protocol #27. HTN, GOAL BELOW 130/80 12/21/200907/17 Overview: Per HTN Taxonomy. Type 2 diabetes mellitus wit h hemoglobin A1c goal of less than 7.0% 05/25/2004 09/22/2009 Overview: Per Diabetes Taxonomy. ICD-10 update of inactive term HTN, goal below 140/90 12/06/200312/21 Overview: Per HTN Taxonomy. Major depressive disorder 12/06/2003 Overview: ICD-10 update of inactive term Lumbago 12/06/2003 07/15/2018 Anxiety state 12/06/2003 01/21/2018 Malignant neoplasm of ovary 12/06/2003 01/21/2018 documented as of this encounter (statuses as of 05/21/2024) Immunizations Name Administration Dates Next Due COVID-19 mRNA, LNP-s, No Pre serve, 2-Dose Series (Beem) 09/01/2021,01/12/2021,12/22/2020 COVID-19, LNP-s, No Preserve , Matthew-sucrose, Ages 12+ (Pfizer) 05/07/2022 COVID-19, MRNA-LNP, 23-24, P F, 30 MCG/0.3 mL, 12 YRS AND ABOVE, IM (Vinja-Comirnaty) 09/14/2023 Covid-19, Mrna, Lnp-s, Pf, B ivalent, 30 Mcg, IM, 12 yrs and above (Pfizer) 09/25/2022 Hepatitis B, 20+ yrs 11/08/2014,06/07/2014,05/05 Pneumococcal Conjugate Vacc, 13 Valent (Prevnar) 05/08/2016 Pneumococcal Polysaccharide PPV23 (Pneumovax) 03/04/2013,05/22/2006 Seasonal Influenza Virus Vac cine, Unspecified Formulation 07/26/2020,08/17/2019,09/02/2018,08/25,08/20/2016,08/19/2014,08/28/20 13,08/22/2012,09/25/2011,08/11/2010,1 ,08/17/2008,09/17/2006,10/15,09/28/2003 Seasonal Influenza, PF, 6 M & above, IM , (FluLaval or Fluzone) 08/03/2021,07/26/2020,08/17/2019,08/25 Seasonal Influenza, QUAD, wi th Preserv, 6 mons & Above, 0.5 mL, IM 09/02/2018 Seasonal Influenza, Quadriva lent Hd (Fluzone Hd) 08/20/2023,08/08/2022 Seasonal Influenza, Quadriva lent, No Preserve, IM 08/20/2016,09/01/2015 Seasonal Influenza, Split, I IV3, With Preserve, Inj 08/19/2014,08/28/2013,08/22/2012,11/2010,08/11/2010,08/31/2009,08/17/20 08,09/17/2006 08/19/2015 TD, Preservative Free 09/15/2018 TDAP, Age 7 and older, IM (Adacel) 08/26/2008 Varicella Zoster Vaccine (Adult) 03/09/2009 Zoster Vaccine Recombinant (Shingrix) 04/18/2023 ,02/11/2023 documented as of this encounter Social History Tobacco Use Types Packs/Day Years Used Date Smoking Tobacco: Never Passive Smoke Exposure: Past Smokeless Tobacco: Never Alcohol Use Standard Drinks/Week Comments No 0 (1 standard drink = 0.6 oz pur e alcohol) AUDIT-C Answer Date Recorded Frequency of Alcohol Consumption Never 12/31/2018 Average Number of Drinks Not on file 019 Frequency of Binge Drinking Not on file 04/2019 PHQ-2 Answer Date Recorded PHQ Adult Total Score 2 09/25/2023 Hunger Vital Sign Answer Date Recorded Within the past 12 months, y ou worried that your food would run out before you got the money to buy more. Never true 09/25/20 23 Within the past 12 months, t he food you bought just didn't last and you didn't have money to get more. Never true 09/25/2023 Childcare Answer Date Recorded Do you feel overwhelmed with taking care of a child, family member or friend? No 09/25/2023 Does your family need help f inding childcare? (Household - for ages 0-17 years) Not on file 09/25/2023 Clothing Answer Date Recorded Have you been unable to get clothing when it was really needed? No 09/25/2023 Is your family able to get c lothes or diapers when needed? (Household - for ages 0-17 years) Not on file 09/25/2023 Personal Safety Answer Date Recorded Do you feel unsafe or have concerns for your saf ety? No 09/25/2023 Do you have concerns for you r family's safety? (Household - for ages 0-17 years) Not on file 09/25/2023 Utilities Answer Date Recorded Do you have trouble paying y our heating, water, or electric bill? No 09/25/2023 Is your family able to pay t he heat, water, or electric bill? (Household - for ages 0-17 years) Not on file 09/25/2023 Does your family have access to good internet? (Household - for ages 0-17 years) Not on file 09/25/2023 Employment Status Answer Date Recorded Are you unemployed or without regular income? No 09/25/2023 Does the household have a re gular source of income? (Household - for ages 0-17 years) Not on file 09/25/2023 Social Connections Answer Date Recorded How often do you feel lonely or isolated from th ose around you? Never 09/25/2023 Financial Resource Strain Answer Date R ecorded Do you have any trouble payi ng for your medications, or do you think you might in the future? No 09/25/2023 Does your family have troubl e paying for medicine? (Household - for ages 0-17 years) Not on file 09/25/2023 Transportation Needs Answer Date Record ed READ ONLY Do you have troubl e getting a ride to medical visits or work? Never True 09/25/2023 Does your family have a hard time getting a ride to doctors visits? (Household - for ages 0-17 years) Not on file 09/25/2023 Has lack of transportation k ept you from medical appointments, meetings, work, or from getting things needed for daily living? Check all that apply. (Adult - for ages 18 years and over) Not on file 09/25/2023 Do you (or your family) have trouble finding or paying for a ride (transportation)? (Household - for ages 0-17 years) Not on file 09/25/2023 Housing Stability Answer Date Recorded Do you currently live in a s helter or have no steady place to sleep at night? No 09/25/2023 READ ONLY Do you think you a re at risk of becoming homeless? No 09/25/2023 Does your family worry about paying for your home or becoming homeless? (Household - for ages 0-17 years) Not on file 1 11/25/2022 Are you homeless or worried that you might be in the future? (Adult - for ages 18 years and over) Not on file Are you (or your family) thanh eless or worried that you might be in the future? (Household - for ages 0-17 years) Not on file Food Insecurity Answer Date Recorded Do you need food for this week? No 09/25/2023 Are you able to get enough f ood for your family? (Household - for ages 0-17 years) Not on file 09/25/2023 Does your family need food t his week? (Household - for ages 0-17 years) Not on file 09/25/2023 Do you always have enough fo od for your family? (Household - for ages 0-17 years) Not on file 09/25/2023 Sex and Gender Information Value Date Recorded Sex Assigned at Female 02/11/2023 11:14 AM EDT Gender Identity Female 02/11/2023 11:14 AM EDT Sexual Orientation Straight 02/11/2023 11 :14 AM EDT Job Start Date Occupation Industry Not on file Not on file Not on file documented as of this encounter Miscellaneous Notes * Telephone Encounter - Jessica Mosquera LPN - 05/21/2024 2:16 PM EDT Patient returned call. Relayed information from Dr. Beard. She acknowledged understanding. Pt states she will discuss with Dr. Hernandez her need for rehab/therapy post-op. Pre-op clearance faxed to [facility] with fax confirmation. * Telephone Encounter - Brandi Tarango LPN - 05/21/2024 1:57 PM EDT See entire message: Lisandra Beard DO Physician SignedYesterday Copy Please let pt know: Her sodium was normal on our repeat here. No need to change anything. We have sent form to Dr. Hernandez's office and she can undergo her surgery. * Telephone Encounter - Brandi Tarango LPN - 05/21/2024 1:56 PM EDT Called, left message for patient to return call. Physical therapy will be set up by surgeon. Thank you * Telephone Encounter - Jessica Mosquera LPN - 05/20/2024 3:48 PM EDT Spoke to [facility] to see when they would be able to start HH services if pt needs after surgery. Per Rachelle, they possibly could start on 05/29 or 06/01 depending on new referrals. Will contact Pt tomorrow to discuss HH services post hospital discharge should she not go to rehab. documented in this encounter Plan of Treatment Upcoming Encounters Date Type Department Care Team (Late st Contact Info) Description 06/16/2024 9:20 AM EDT Office Visit Family Practice [address] [facility] [place] [phone] Lisandra Beard DO [address] [facility] [place] [address] 06/26/2024 2:00 PM EDT Nurse Only Ancillary [address] [place] [address] [facility], [place] [address] [employer], Nurse Annual Wellness Visit [address] [address] 11/02/2024 11:00 AM EST Imaging Radiology, [address] [place] [address] 02/22/2025 11:00 AM EDT Office Visit Rheumatology [address] [place] [address] Lokesh Giordano MD [address] [place] [address] [place] [address] Health Maintenance Due Date Last Done Comments COVID-19 Vaccine ( season) 2024 09/14/2023, 09/25/2022, 05/07/2022, Additional history exists *BISPHONATE OR OTHER ACCEPTABLE MEDICATION NEEDED FOR OSTEOPOROSIS (REFER TO SMARTSET #1146) 02/24/2024 Albumin/Creatinine Ratio 06/12/2024 023, 07/09/2022, 07/04/2021, Additional history exists Depression Monitoring 09/25/2024 09/25/2023 DXA Scan 10/30/2024 10/30/2022, 1204/2022, 10/17/2020, Additional history exists HbA1c 11/12/2024 05/13/2024, 12/26, 07/08/2023, Additional history exists Diabetic Eye Exam 02/27/2025 02/28/2024, , 2023, Additional history exists Diabetic Foot Exam 03/10/2025 03/10/2024, 0 02/11/2023, 01/08/2022, Additional history exists GFR 05/19/2025 05/19/2024, 04/25, 03/10/2024, Additional history exists DTaP,Tdap,and Td Vaccines (3 - Td or Tdap) 09/15/2028 09/15/2018, 08/26/2008 Hepatitis B Completed 11/08/2014, 05/25, 05/05/2014 Fecal Occult Blood Test Discontinued 01/14/2015 Colonoscopy Discontinued 04/27/2015, 01/2015, 06/06/2011, Additional history exists RETIRED - COLONOSCOPY-EVERY 5 YRS AGES 18-100 Discontinued 04/27/2015, 04/27/2015, 06/06/2011, Additional history exists Pneumococcal Vaccine: 65+ Years Completed 05/08/2016, 03/04/2013, 05/22/2006 Cologuard Discontinued 03/09/2021, 02/23, 03/06/2021 Colorectal Cancer Screening Discontinued VITAMIN D LEVEL ONCE IN A LIFETIME-USE SMARTSET# 43439 Completed 02/08/2023, 07/09/2022, 07/04/2021, Additional history exists Zoster Vaccines Completed 04/18/2023, 01/24, 03/09/2009 Influenza Vaccine (FLU shot) Completed 08/20/2023, 08/08/2022, 08/03/2021, Additional history exists GARDASIL-HPV IMMUNIZATION SERIES Aged Out No longer eligible based on patient's age to complete this topic MENINGOCOCCAL (MENACTRA/MENVEO) Aged Out No longer eligible based on patient's age to complete this topic Sigmoidoscopy Discontinued documented as of this encounter Medical Devices Not on filedocumented as of this encounter Care Teams C D Still Operator Relationship Specialty Start Date End Date Lisandra Beard DO [address] [place] [address], [place] [address] PCP - General Family Medicine 05/08/24 Shmuel Patel PA Specialist Medical Oncology 09/15/15 Marialuisa Ram [facility] [place] Specialist 09/15/15 documented as of this encounter
--- OUTSIDE RECORDS SUMMARY | 2024-05-26 13:53 | External Medical Summary | Summary of Care ---
Author Name Unknown Organization [facility] Address [address] [place] [address] Phone [phone] Care Team Providers Care Blocker And Cutter Contact Lens Name Role Phone Lisandra Beard DO Primary Care Provider + [phone] Reason for Visit * Reason Onset Date Comments Nutritional Services Documentation 05/15/2024 Encounter Details Date Type Department Care Team (Late st Contact Info) Description 05/15/2024 3:00 PM EDT Scheduled Telephone Nutrition Services 65 [facility], [place] [address] [facility], [place] [id number] Aisha Vargas RDN 106 [place] [address] Arrived Allergies Active Allergy Reactions Criticality Noted Date [...] as of this encounter (statuses as of 05/15/2024) Medications Medication Sig Dispensed Refills Start Date [...] for Pain. 100 g 5 11/08/2020 Active Rizatriptan Benzoate 10 MG Oral Tablet DisintegratingIndica [...] 9 Each 3 07/26/2023 Active Dexcom G7 Consulting Sales Manager DeviceIndications:Ty pe 2 diabetes mellitus with hemoglobin A1c goal of less than 7.0% (HCC) Use to monitor blood sugars continuously E11.9 1 Each 07/26/2023 Active Nystatin 223689 UNIT/GM External Cream apply topically twice daily as needed for rash 30 g 3 08/02/2023 Active Ketotifen Fumarate 0.025 % Ophthalmic Solution 1 Drop in the morning and 1 Drop before bedtime. Active [employer] Pain Relieving 80-24-16 MG External Patch (Konhvhw-Zhfmczj-Nql sicum) Apply topically to affected area. Active OneTouch Verio w/Device KitIndications:Type 2 diabetes mellitus with hemoglobin A1c goal of less than 7.0% ([facility]) Use once daily to check blood sugars. [...] hemoglobin A1c goal of less than 7.0% ([facility]) TAKE 1 TABLET BY MOUTH EVERY DAY 90 Tablet 1 11/14/2023 Active Adapalene 0.3 % External GelIndications:Adult acne Apply to whole face nightly 135 g 2 11/26/2023 Active Atorvastatin Calcium 20 MG Oral Tablet (Lipitor)Indications [...] before bedtime. 60 Capsule 1 04/17/2024 Active documented as of this encounter (statuses as of 05/15/2024) Active Problems Problem Noted Date Diagnosed Date [...] as of this encounter (statuses as of 05/15/2024) Resolved Problems Problem Noted Date Diagnosed Date Resolved Date Major depressive disorder, r ecurrent, moderate 06/27/2021 04/19/2022 Overview: More specified condition of MDD on pl Type 2 diabetes mellitus wit h stage 3 chronic kidney disease and hypertension 06/30/2019 01/08/20 Stage 3 chronic kidney disease 11/06/2018 07/09/2019 [...] as of this encounter (statuses as of 05/15/2024) Immunizations Name Administration Dates Next Due COVID-19 mRNA, LNP-s, No Pre serve, 2-Dose Series ([employer]) 09/01/2021,01/12/2021,12/22/2020 COVID-19, LNP-s, No Preserve , Matthew-sucrose, Ages 12+ ([employer]) 05/07/2022 COVID-19, MRNA-LNP, 23-24, P F, 30 MCG/0.3 mL, 12 YRS AND ABOVE, IM ([employer]) 09/14/2023 Covid-19, Mrna, Lnp-s, Pf, B ivalent, 30 Mcg, IM, 12 yrs and above ([employer]) 09/25/2022 Hepatitis B, 20+ yrs 11/08/2014,06/07/2014,05/05 Pneumococcal [...] money to get more. Never true 09/25/2023 Sex and Gender Information Value Date Recorded Sex Assigned at Female 02/11/2023 11:14 AM EDT Gender Identity Female 02/11/2023 11:14 AM EDT Sexual Orientation Straight 02/11/2023 11 :14 AM EDT Job Start Date Occupation Industry Not on file Not on file Not on file documented as of this encounter Miscellaneous Notes * Telephone Encounter - Aisha Vargas RDN - 05/15/2024 3:27 PM EDT [address] [place] [address] Dietitian Phone Outreach Called patient to inquire about cancelled nutrition appointment today and to answer any urgent questions or concerns. Result of call: Patient did not answer--left a message requesting a call to the [address] [place] [address] Dietitian at [phone] if there are specific questions and schedule a follow up nutrition appointment. Electronically signed by: Aisha Vargas RDN, NUTRITION SERVICES [address] [place] [address] documented in this encounter Plan of Treatment Upcoming Encounters Date Type Department Care Team (Late st Contact Info) Description 05/19/2024 2:20 PM EDT Office Visit Family Practice 65 [facility] [phone] Lis[facility] Beard DO [facility] [address] 06/16/2024 9:20 AM EDT Office Visit Family Practice 65 [facility] [address] [facility] [phone] Lisandra Beard DO [facility] [address] 06/26/2024 2:00 PM EDT Nurse Only Ancillary [address] [address] [address], Nurse Annual Wellness Visit [address] [address] 11/02/2024 11:00 AM EST Imaging Radiology, [place] [id number] [place] [address] 02/22/2025 11:00 AM EDT Office Visit Rheumatology [facility] [address] [place] [address] Lokesh Giordano MD [address] [place] [address] Health Maintenance Due Date Last Done Comments COVID-19 Vaccine ( season) 2024 09/14/2023, 09/25/2022, 05/07/2022, Additional history exists *BISPHONATE OR OTHER ACCEPTABLE MEDICATION NEEDED FOR OSTEOPOROSIS (REFER TO SMARTSET #1146) 02/24/2024 Albumin/Creatinine Ratio 06/12/2024 023, 07/09/2022, 07/04/2021, Additional history exists Depression Monitoring 09/25/2024 09/25/2023 DXA Scan 10/30/2024 10/30/2022, 04/2022, 10/17/2020, Additional history exists HbA1c 11/12/2024 05/13/2024, 12/26, 07/08/2023, Additional history exists Diabetic Eye Exam 02/27/2025 02/28/2024, , 2023, Additional history exists Diabetic Foot Exam 03/10/2025 03/10/2024, 0 02/11/2023, 01/08/2022, Additional history exists GFR 05/13/2025 05/13/2024, 02/23, 01/08/2024, Additional history exists DTaP,Tdap,and Td Vaccines (3 - Td or Tdap) 09/15/2028 09/15/2018, 08/26/2008 Hepatitis B Completed 11/08/2014, 05/25, 05/05/2014 Fecal Occult Blood Test Discontinued 01/14/2015 Colonoscopy Discontinued 04/27/2015, 060 01/2015, 06/06/2011, Additional history exists RETIRED - COLONOSCOPY-EVERY 5 YRS AGES 18-100 Discontinued 04/27/2015, 04/27/2015, 06/06/2011, Additional history exists Pneumococcal Vaccine: 65+ Years Completed 05/08/2016, 03/04/2013, 05/22/2006 Cologuard Discontinued 03/09/2021, 02/23, 03/06/2021 Colorectal Cancer Screening Discontinued VITAMIN D LEVEL ONCE IN A LIFETIME-USE SMARTSET# [id number] Completed 02/08/2023, 07/09/2022, 07/04/2021, Additional history exists [...] filedocumented as of this encounter Care Teams Blocker And Cutter Contact Lens Relationship Specialty Start Date End Date Lisandra Beard DO [address] [place] [address] PCP - General Family Medicine 05/08/24 Shmuel Patel PA Specialist Medical Oncology 09/15/15 Marialuisa Ram [facility] JAR[place] Specialist 09/15/15 documented as of this encounter
--- OUTSIDE RECORDS SUMMARY | 2024-05-26 13:53 | External Medical Summary | Summary of Care ---
Author Name Unknown Organization [facility] Address [address] [place] [address] Phone [phone] Care Team Providers Care Stave Hewer Name Role Phone Lisandra Beard DO Primary Care Provider [phone] Reason for Visit * Reason Comments Medication Management Encounter Details Date Type Department Care Team (Late st Contact Info) Description 05/19/2024 1:40 PM EDT Telemedicine Family Practice 65 [facility], [place] [address] [place] [address] College, Pharmacist [address] [facility] [address] [place] [address] Medication management* Allergies Active Allergy Reactions Criticality Noted Date [...] as of this encounter (statuses as of 05/19/2024) Medications Medication Sig Dispensed Refills Start Date [...] 9 Each 3 07/26/2023 Active Dexcom G7 Institutional Commodity Analyst DeviceIndications:Ty pe 2 diabetes mellitus with hemoglobin A1c goal of less than 7.0% (HCC) Use to monitor blood sugars continuously E11.9 1 Each 07/26/2023 Active Nystatin 236643 UNIT/GM External Cream apply topically twice daily as needed for rash 30 g 3 08/02/2023 Active Ketotifen Fumarate 0.025 % Ophthalmic Solution 1 Drop in the morning and 1 Drop before bedtime. Active [place] Pain Relieving 80-24-16 MG External Patch (Tjvdkee-Wxuulpw-Fzq sicum) Apply topically to affected area. Active OneTouch Verio w/Device KitIndications:Type 2 diabetes mellitus with hemoglobin A1c goal of less than 7.0% ([facility]) Use once daily to check blood sugars. [...] goal of less than 7.0% ([facility]) TAKE 1 TABLET BY MOUTH EVERY DAY [...] as of this encounter (statuses as of 05/19/2024) Active Problems Problem Noted Date Diagnosed Date [...] as of this encounter (statuses as of 05/19/2024) Resolved Problems Problem Noted Date Diagnosed Date [...] as of this encounter (statuses as of 05/19/2024) Immunizations Name Administration Dates Next Due COVID-19 mRNA, LNP-s, No Pre serve, 2-Dose Series ([employer]) 09/01/2021,01/12/2021,12/22/2020 COVID-19, LNP-s, No Preserve , Matthew-sucrose, Ages 12+ ([employer]) 05/07/2022 COVID-19, MRNA-LNP, 23-24, P F, 30 MCG/0.3 mL, 12 YRS AND ABOVE, IM ([employer]) 09/14/2023 Covid-19, Mrna, Lnp-s, Pf, B ivalent, 30 Mcg, IM, 12 yrs and above ([employer]) 09/25/2022 Hepatitis B, 20+ yrs 11/08/2014,06/07/2014,05/05 Pneumococcal [...] No 09/25/2023 Does the household have a [facility] source of income? (Household - for ages [...] on file documented as of this encounter Progress Notes * Elen Mehta RPh - 05/19/2024 4:56 PM EDT Agree with plan as documented. Elen Zhu, Pharm D, BCACP Clinical Pharmacist [facility] 05/19/2024, 4:56 PM * Angi Ge, PHARM Student - 05/19/2024 1:50 PM EDT Medication Therapy Disease [facility] - Medication Reconciliation Vladimir Lee is an 74 year old being seen for medication reconciliation. Med Rec Reason: Annual Prescription insurance information: [employer] Do you have any other prescription coverage: Yes, Dual Coverage Wrap Benefits Preferred pharmacy: [facility] [x] Problem list reviewed [x] Allergies reviewed and updated if needed [x] Drug interaction check completed [x] HEDIS list addressed Immunizations: Eligible for COVID Booster Labs/Vitals/Risk Scores: The ASCVD Risk score (Luz Elena DE LA GARZA, et al., 2019) failed to calculate for the following reasons: Unable to determine if patient is Non- BP Readings from Last 3 Encounters: 04/17/24 122/60 03/10/24 118/62 01/08/24 104/60 Recent Labs Units 05/13/24 0000 01/08/24 1044 07/08/23 1531 HEMOGLOBIN A1C - [facility] % -- 5.8* 6.5* HEMOGLOBIN, [id number] LAB 5.9* -- -- Recent Labs Units 03/10/24 1539 01/08/24 1044 11/06/23 0930 ESTIMATED GLOMERULAR FILTRATION RATE - [facility] mL/min 66 84 67 Serum creatinine: 0.82 mg/dL 05/13/24 0000 Estimated creatinine clearance: 49.1 mL/min Assessment & Plan: Medication discrepancies identified: Patient is taking multiple OTC supplements (example: Nerve Control 911 + Marshmallow Root). Unable to determine risk/benefit with other prescribed medications using natural medicine database. Dose/frequency of medications appropriate for current renal function? yes Other medication problems identified: Patient is taking multiple NUCLEAR WASTE PROCESS OPERATOR Depressant drugs, such as hydrocodone-acetaminophen, Tramadol, mirtazapine, Pregabalin, and Tizanidine. PCP mentioned patient was out of tramadol and is only taking the hydrocodone-acetaminophen for pain. Will continue to monitor for side effects. Patient education provided: None Referral pended for follow up management of: N/A Summary- Changes & Recommendations: Medication Reconciliation Completed. Angi Ge, PHARM Student Clinical Pharmacist - Skip Locator [facility] 05/19/2024, 1:50 PM documented in this encounter Plan of Treatment Upcoming Encounters Date Type Department Care Team (Late st Contact Info) Description 06/16/2024 9:20 AM EDT Office Visit Family Practice [address] [phone] Lisandra Beard DO [address] [place] [address] 06/26/2024 2:00 PM EDT Nurse Only Ancillary [address] [address] College, Nurse Annual Wellness Visit [address] [address] 11/02/2024 11:00 AM EST Imaging Radiology, [place] [address] [place] [address] 02/22/2025 11:00 AM EDT Office Visit Rheumatology [place] [address] [place] [address] Lokesh Giordano MD [facility] [place] [address] Health Maintenance Due Date Last Done Comments *BISPHONATE OR OTHER ACCEPTABLE MEDICATION NEEDED FOR OSTEOPOROSIS (REFER TO SMARTSET #1146) 02/24/2024 COVID-19 Vaccine ( season) 2024 09/14/2023, 09/25/2022, 05/07/2022, Additional history exists Postponed from 01/15/2024 (Patient Declined After Education) Albumin/Creatinine Ratio 06/12/2024 023, 07/09/2022, 07/04/2021, Additional [...] D LEVEL ONCE IN A LIFETIME-USE SMARTSET# [id number] Completed 02/08/2023, 07/09/2022, 07/04/2021, Additional history exists [...] Not on filedocumented as of this encounter Visit Diagnoses Diagnosis Medication management- Primary Encounter for long-term (current) use of other medications documented in this encounter Care Teams Stave Hewer Relationship Specialty Start Date End Date Lisandra Beard DO [address] [place] [address] PCP - General Family Medicine 05/08/24 Shmuel Patel PA Specialist Medical Oncology 09/15/15 Marialuisa Ram [facility] [place] [facility] Special[facility] 09/15/15 documented as of this encounter
--- OUTSIDE RECORDS SUMMARY | 2024-05-26 13:53 | External Medical Summary | Summary of Care ---
Author Name Unknown Organization [facility] Address [address] [place] [address] Phone [phone] Care Team Providers Care Advertising Representative Name Role Phone Lisandra Beard DO Primary Care Provider + [phone] Reason for Referral * Evaluate & Treat - Unlimited Visits (Within 10 days (routine)) - Authorized Specialty Diagnoses / Procedures Referred By Contac t Referred To Contact HOME CARE / Home Care Diagnoses Pre-operative clearance Cervical radiculopathy Lisandra Beard DO [address] [place] [address] Referral ID Status Reason Start Date Expiration Date Visits Requested Visits Authorized [id number] Authorized Specialty Services Required 05/19/[phone] Question Answer Referral Priority Within 10 days (routine) Where should this appointment be scheduled? Jimbo Comments Documentation of Yetx-xr-Jauf Encounter Addendum Patient Name: Vladimir Lee I certify that this patient is under my care and that I, or a nurse practitioner or physician's behavioral modification assistant working with me, had a [id number] encounter that meets the physician cuii-ef-dceb encounter requirements with this patient on: 05/19 The encounter with the patient was in whole, or in part, for the following medical condition, which is the primary reason for home health care (List medical condition): Convalescence from surgery I certify that, based on my findings, the following services are medically necessary home health services: Nursing and possibly PT pending ortho To provide the following care/treatments: (All hospitalists not following the patient after discharge should complete this section): Monitor after surgery Primary Care Physician to follow home care plan of care after discharge: Mary Solorio My clinical findings support the need for the above services because: pt is home alone Further, I certify that my clinical findings support that this patient is homebound (i.e. Absences from home require considerable and taxing effort and are for medical reasons or gnosticism services or infrequently or of short duration when for other reason) because: Pt is homebound Physician Signature: Date of Signature: Physician Printed Name: Lisandra Beard DO Reason for Visit * Reason Comments Follow Up Encounter Details Date Type Department Care Team (Late st Contact Info) Description 05/19/2024 2:20 PM EDT Office Visit Family Practice [address] [place] [address] [address] [place] [phone] Lisandra Beard DO [address] [place] [address] Pre-operative clearance*; Cervical radiculopathy; Hyponatremia; Type 2 diabetes mellitus with hemoglobin A1c goal of less than 7.0% ([facility]) Allergies Active Allergy Reactions Criticality Noted Date [...] 9 Each 3 07/26/2023 Active Dexcom G7 Hydrate Thickener Operator DeviceIndications:Ty pe 2 diabetes mellitus with hemoglobin A1c goal of less than 7.0% (HCC) Use to monitor blood sugars continuously E11.9 1 Each 07/26/2023 Active Nystatin 903096 UNIT/GM External Cream apply topically twice daily as needed for rash 30 g 3 08/02/2023 Active Ketotifen Fumarate 0.025 % Ophthalmic Solution 1 Drop in the morning and 1 Drop before bedtime. Active [place] Pain Relieving 80-24-16 MG External Patch (Oqqajma-Xdyktlg-Lna sicum) Apply topically to affected area. Active OneTouch Verio w/Device KitIndications:Type 2 diabetes mellitus with hemoglobin A1c goal of less than 7.0% (HCC) Use once daily to check blood sugars. [...] A1c goal of less than 7.0% (HCC) TAKE 1 TABLET BY MOUTH EVERY DAY [...] mRNA, LNP-s, No Pre serve, 2-Dose Series (Radiation Monitoring Devices) 09/01/2021,01/12/2021,12/22/2020 COVID-19, LNP-s, No Preserve , Matthew-sucrose, Ages 12+ (Radiation Monitoring Devices) 05/07/2022 COVID-19, MRNA-LNP, 23-24, P F, 30 MCG/0.3 mL, 12 YRS AND ABOVE, IM ([facility] 09/14/2023 Covid-19, Mrna, Lnp-s, [...] Influenza, Split, I IV3, With Preserve, Inj 08/19/2014,08/28/2013,08/22/2012,11/11/2010,08/11/2010,08/31/2009,08/17/20 08,09/17/2006 08/19/2015 TD, Preservative Free 09/15/2018 TDAP, Age 7 and older, IM (Adacel) 08/26/2008 Varicella Zoster Vaccine (Adult) 03/09/2009 Zoster Vaccine Recombinant (Shingrix) 04/18/2023 ,02/11/2023 documented as of this encounter Social History Tobacco Use Types Packs/Day Years Used Date Smoking Tobacco: Never Passive Smoke Exposure: Past Smokeless Tobacco: Never Tobacco Cessation:Counseling Given: Yes Alcohol Use Standard Drinks/Week Comments No 0 [...] on file documented as of this encounter Last Filed Vital Signs Vital Sign Reading Time Taken Comments Blood Pressure 138/66 05/19/2024 2:20 PM EDT Pulse 61 05/19/2024 2:20 PM EDT Temperature 37.4 C (99.3 F) 05/19/2024 2:20 PM ED T Respiratory Rate 12 05/19/2024 2:20 PM EDT Oxygen Saturation 97% 05/19/2024 2:20 PM EDT Inhaled Oxygen Concentration - - Weight 59.1 kg (130 lb 6.4 oz) 05/19/2024 2:20 P M EDT Height 161 cm (5' 3.39") 05/19/2024 2:20 PM EDT Body Mass Index 22.82 05/19/2024 2:20 PM EDT documented in this encounter Progress Notes * Lisandra Beard DO - 05/19/2024 2:26 PM EDT SUBJECTIVE: Chief Complaint Patient presents with Follow Up HPI: Vladimir Lee is a 74 year old female who presents today for pre- operative clearance. Pt will undergo cervical spine surgery with Dr. Hernandez on 05/26. Pt notes no history of issues with anesthesia in the past. She notes no chest pain or shortness of breath. She is able to walk several blocks or upstairs without chest pain. No false or fake teeth. She did break a tooth recently but no infection. She did have her pre-op assessment at [facility]. Lab studies and EKG ok. She does live alone. She has friends that may be able to help her if needed when she is home. She is not sure if she will be going to a rehab facility. PHM: Patient Active Problem List Diagnosis ADVANCE DIRECTIVE INFORMATION Type 2 diabetes mellitus with hemoglobin A1c goal of less than 7.0% (HCC) HTN, goal below 140/90 Chronic low back pain Incomplete emptying of bladder Vaginal atrophy Type 2 diabetes mellitus with diabetic peripheral angiopathy without gangrene (HCC) Gastroesophageal reflux disease without esophagitis Spinal stenosis of lumbar region with neurogenic claudication Migraine variant Generalized anxiety disorder Hyperlipidemia, unspecified Persistent depressive disorder Age-related osteoporosis with current pathological fracture Migraine without status migrainosus, not intractable Major depressive disorder, recurrent, moderate (HCC) Senile osteoporosis Pure hypercholesterolemia, unspecified Age-related osteoporosis with current pathological fracture, unspecified site, initial encounter for fracture Type 2 diabetes mellitus with diabetic polyneuropathy (HCC) Other migraine, not intractable, without status migrainosus DDD (degenerative disc disease), cervical Current Outpatient Medications Medication Sig Dispense Refill Bismuth Subsalicylate 262 MG Oral Tablet Chewable as needed. Liniments (SALONPAS ARTHRITIS PAIN RELIEF) PADS Apply 1 Patch topically to affected area as needed for Pain or Other (arthritic discomort of back and/or knees.). 5 Each 2 Nutritional Supplements (GLUCERNA ADVANCE SHAKE) LIQD Take 1 Bottle by mouth daily as needed for Other (during illness with poor appetite). 12 Bottle 6 Rizatriptan Benzoate 10 MG Oral Tablet Disintegrating DISSOLVE 1 TAB ON TONGUE AT HEADACHE ONSET, MAY REPEAT IN 2 HRS, UP TO 2 TIMES, MAX 3 TABS/24 HRS 6 Tab 13 Xiidra 5 % Ophthalmic Solution Multivitamin Women 50+ Oral Tablet Take 1 Tablet by mouth daily. Melatonin 5 MG Oral Capsule Take 2 Capsules by mouth at bedtime. Fiber Diet Oral Tablet Take 2 Tablets by mouth in the morning. NATURAL SUPPLEMENT Take 2 Capsules by mouth in the morning. Nerve Control 911 + Marshmallow Root. NATURAL SUPPLEMENT Take 2 Capsules by mouth in the morning. K2M7 with Vit D. Benfotiamine Multi-B Oral Capsule Take 1 Tablet by mouth. 600 (4 in 1: turmeric, ashwaganda, gymnime elijah) Magnesium Citrate 200 MG Oral Tablet Take 1 Tablet by mouth in the morning. 250 mg - taking at night . Dexcom G7 Hydrate Thickener Operator Device Use to monitor blood sugars continuously E11.9 1 Each 0 Nystatin 158444 UNIT/GM External Cream apply topically twice daily as needed for rash 30 g 3 Ketotifen Fumarate 0.025 % Ophthalmic Solution 1 Drop in the morning and 1 Drop before bedtime. [place] Pain Relieving 80-24-16 MG External Patch (Okttszs-Qnxlvzz-Zbczitig) Apply topically to affected area. DULoxetine HCl 20 MG Oral Capsule Delayed Release Particles (Cymbalta) Take 1 Capsule by mouth in the morning. 90 Capsule 0 Vaniqa 13.9 % External Cream (Eflornithine HCl) Apply to areas of hair density twice daily 45 g 1 Ondansetron HCl 4 MG Oral Tablet Take 1 Tablet by mouth every 6 hours as needed for Nausea. 30 Tablet 0 tiZANidine HCl 2 MG Oral Capsule TAKE 1-2 CAP BY MOUTH AT NIGHT NEEDED FOR PAIN AND MUSCLE SPASM90 Capsule 0 Lisinopril 5 MG Oral Tablet (Prinivil) TAKE 1 TABLET BY MOUTH EVERY DAY 90 Tablet 1 Atorvastatin Calcium 20 MG Oral Tablet (Lipitor) TAKE 1 TABLET BY MOUTH EVERY DAY 90 Tablet 1 Chlorhexidine Gluconate 0.12 % Mouth/Throat Solution (Periogard) traMADol HCl 50 MG Oral Tablet (Ultram) Take 1 Tablet by mouth 2 times a day as needed (pain). 60 Tablet 0 linaGLIPtin 5 MG Oral Tablet (Tradjenta) Take 1 Tablet by mouth in the morning. 100 Tablet 3 Mirtazapine 7.5 MG Oral Tablet (Remeron) TAKE 1/2 TO 1 TABLET BY MOUTH EVERY NIGHT NEEDED FOR SLEEP PROBLEMS. 90 Tablet 1 NATURAL SUPPLEMENT Take by mouth daily. Sciati flex cream Pregabalin 25 MG Oral Capsule (Lyrica) Take 1 Capsule by mouth in the morning and 1 Capsule before bedtime. 60 Capsule 1 HYDROcodone-Acetaminophen 5-325 MG Oral Tablet 1 Tablet. Diclofenac Sodium 1 % External Gel Apply 2 g topically to affected area 3 times a day as needed forPain. (Patient not taking: Reported on 05/19/2024) 100 g 5 Dexcom G7 Sensor Use to monitor blood sugars continuously , changing every 10 days, E11.9 9 Each 3 OneTouch Verio w/Device Kit Use once daily to check blood sugars. Dx E11.9 1 Kit 0 OneTouch Verio In Vitro Strip (Glucose Blood) Use as directed one time per day E11.9 100 Strip 3 Adapalene 0.3 % External Gel Apply to whole face nightly (Patient not taking: Reported on 05/19/2024) 135 g 2 Lidocaine-Menthol 4-1 % External Gel (Nervive) Apply topically to affected area. Oral tablet (Patient not taking: Reported on 05/19/2024) No current facility-administered medications for this visit. Past Medical History: Diagnosis Date Age-related osteoporosis with current pathological fracture 02/09/2021 Anxiety state Depressive disorder, not elsewhere classified HTN, goal below 140/90 Hyperlipidemia, unspecified 01/05/2020 Interstitial cystitis 06/23/2016 Lumbago Major depressive disorder, recurrent, moderate (HCC) 06/27/2021 More specified condition of MDD on pl Malignant neoplasm of ovary (HCC) 1997 Ovarian Ca Ovarian cancer (HCC) with chemo Spinal stenosis of lumbar region with neurogenic claudication 11/05/2019 Type 2 diabetes mellitus with hemoglobin A1c goal of less than 7.0% (HCC) 09/22/2009 Per Diabetes Taxonomy. ICD-10 update of inactive term Type 2 diabetes mellitus with stage 3 chronic kidney disease and hypertension (HCC) 06/30/2019 Past Surgical History: Procedure Laterality Date ANESTH, UPPER ABDOMEN HERNIA REPAIR BREAST BIOPSY Right benign COLONOSCOPY, DIAGNOSTIC (RECTUM) 06/06/11 wnl COLONOSCOPY, DIAGNOSTIC (RECTUM) 04/27/2015 normal, repeat 5 yrs/COLONOSCOPY FLEXIBLE PROXIMAL DIAGNOSTIC performed by Earl Prabhakar MD at ENDOSCOPY [facility] DETACHED RETINA REPAIRED W/ PHOTOCOAGULATION 2013 right eye DIABETIC EYE EXAM 10/10/09 no diabetic retinopathy EGD, FLEXIBLE, DIAGNOSTIC 04/27/2015 normal bx/ESOPHAGOGASTRODUODENOSCOPY (EGD), FLEXIBLE, TRANSORAL, DIAGNOSTIC performed by Earl Prabhakar MD at ENDOSCOPY [facility] INFORMATION 12/20/04 Cholelithiasis at [facility] INJECT DX/THER SUBSTANCE INTERLAMINAR CERVICAL/THORACIC W IMAGE GUIDE 05/20/2023 INJECTION SPINE LUMBAR CERVICAL OR THORACIC performed by Jd Robles DO at OR [facility] LAMINECTOMY/LAMINOTOMY, LUMBAR, GUIDE 1996 MAMMOGRAM - BILATERAL 06/01/05 Normal mammogram/done at [facility] OTHER 2000 abdominal hernia repair OTHER 01/14/07 Doppler ankle, arm index screening REMOVAL OF APPENDIX REMOVAL OF UVULA 1998 REMOVE GALLBLADDER, EXPLORE DUCT 12/2004 SINUS SURGERY PROCEDURE NEC 1998 TOTAL ABD HYSTERECTOMY W/WO REMOVAL OF TUBE(S) Bilateral 1999 TOTAL HYSTERECTOMY TAHBSO Review of patient's allergies indicates: Allergen Reactions Gabapentin Unable to speak,see well enough Other reaction(s): Nausea,dizziness and forgrtfullness. Other Reaction(s): Nausea,dizziness and forgrtfullness., Other (See Comments) Unable to speak,see well enough Unable to speak,see well enough Other reaction(s): Nausea,dizziness and forgrtfullness. Benadryl [Diphenhydramine-Zinc Acetate] Shaking; incoherent (only in large doses) Diphenhydramine Other reaction(s): Anxiety Other Reaction(s): Anxiety, Other (See Comments) Nickel Rash Other reaction(s): Rash Family History Problem Relation Name Age of Onset Arthritis Mother OA of spine- completely bent over at age 70- passe Renal Hx Mother Diabetes Father Heart Disorder Father Hypertension Father at 62 Heart Disorder Sister Sandra 2013 due to cancer metastasis Cancer Sister Sandra younger sibling Breast Cancer Sister Sandra Heart Disorder Brother Diabetes Brother Heart Disorder Brother Rusty Hypertension Brother Rusty Diabetes Brother Rusty Diabetes Grandmother (Maternal) Cancer Grandfather (Maternal) gastric cancer Gastro-intestinal disorder Grandfather (Maternal) Breast Cancer Daughter Breast Cancer Cousin (Maternal) Family Status Relation Status Mo at age 96 94yo Fa at age 62 Sis Bro Bro Bro Bro MGMA (Not Specified) MGFA (Not Specified) Adrienne Alive MCOUS (Not Specified) Social History Tobacco Use Smoking status: Never Passive exposure: Past Smokeless tobacco: Never Substance Use Topics Alcohol use: No Vaping/E-Cigarette Use Vaping/E-Cigarette Use Never User Vaping/E-Cigarette Substances Nicotine No Other No Flavoring No THC No Cannabidiol (CBD) No Vaping/E-Cigarette Devices Disposable No Pre-filled or Refillable Cartridge No Refillable Tank No Pre-filled Pod No REVIEW OF SYSTEMS: Review of Systems Constitutional: Negative for chills, fatigue, fever and unexpected weight change. Respiratory: Negative for cough, chest tightness, shortness of breath and wheezing. Cardiovascular: Negative for chest pain, palpitations and leg swelling. Gastrointestinal: Negative for abdominal pain, constipation, diarrhea, nausea and vomiting. Musculoskeletal: Negative for arthralgias, gait problem and joint swelling. Skin: Negative for color change, pallor and rash. Neurological: As per HPI OBJECTIVE: BP 138/66 (BP Site: Left Arm, BP Position: Sitting, BP Cuff Size: Regular) | Pulse 61 | Temp 37.4 C (99.3 F) (Tympanic) | Resp 12 | Ht 1.61 m (5' 3.39") | Wt 59.1 kg (130 lb 6.4 oz) | SpO2 97% | BMI 22.82 kg/m | BSA 1.63 m PHYSICAL EXAM: Physical Exam Constitutional: General: She is not in acute distress. Appearance: She is well-developed. Cardiovascular: Rate and Rhythm: Normal rate and regular rhythm. Heart sounds: Normal heart sounds. No murmur heard. No friction rub. No gallop. Pulmonary: Effort: Pulmonary effort is normal. No respiratory distress. Breath sounds: Normal breath sounds. No wheezing or rales. Abdominal: General: Bowel sounds are normal. There is no distension. Palpations: Abdomen is soft. Tenderness: There is no abdominal tenderness. There is no guarding. Musculoskeletal: General: No tenderness or deformity. Normal range of motion. Skin: General: Skin is warm and dry. Coloration: Skin is not pale. Findings: No erythema or rash. Neurological: Mental Status: She is alert and oriented to person, place, and time. ASSESSMENT/PLAN: (Z01.818) Pre-operative clearance (primary encounter diagnosis) (M54.12) Cervical radiculopathy Plan: HOME HEALTH REFERRAL OP Pt will undergo surgery with Dr. Hernandez on 05/26. She is able to tolerate 4 METS of activity. She notes no recent issues. She is medically maximized for OR pending repeat BMP. She has no real plan in place for her care after surgery. Suspect she may not be approved for rehab stay. Will see if we can get home health involved. (E87.1) Hyponatremia Plan: BASIC METABOLIC PANEL, BASIC METABOLIC PANEL BMP today. Was slightly hyponatremic on labs done at hospital. Want to be sure no drop from that. (E11.9) Type 2 diabetes mellitus with hemoglobin A1c goal of less than 7.0% ([facility]) Plan: A1C has been controlled. Again reviewed that she does not have diabetic neuropathy. Follow-up: pending surgery Total time today including reviewing chart before the visit, pertinent labs, imaging reports, face to face time, and documentation time was 35 minutes. Lisandra Beard DO documented in this encounter Nursing Notes * Jessica Mosquera LPN - 05/19/2024 2:19 PM EDT Patient here for follow up - pre-op visit. Surgery scheduled for 7/2/24. documented in this encounter Plan of Treatment Upcoming Encounters Date Type Department Care Team (Late st Contact Info) Description 06/16/2024 9:20 AM EDT Office Visit Family Practice [facility] [address] [place] [address] Lisandra Beard DO [address] [place] [address] 06/26/2024 2:00 PM EDT Nurse Only Ancillary [address] [place] [address] College, Nurse Annual Wellness Visit [address] [place] [address], [place] [address] 11/02/2024 11:00 AM EST [place], [address] [place] [address] 02/22/2025 11:00 AM EDT Office Visit Rheumatology [address] [place] [address] Lokesh Giordano MD [address] [place] [address] [place] [address] Pending Results Name Type Priority Associated Diagnoses Date /Time BASIC METABOLIC PANEL Lab Routine Hyponatremia 05/19/2024 2:56 PM EDT Scheduled Orders Name Type Priority Associated Diagnoses Orde r Schedule BASIC METABOLIC PANEL Lab Routine Hyponatremia Expected: 05/19/2024 (Approximate), Expires: 05/19/2025 Scheduled Referrals Name Type Priority Associated Diagnoses Orde r Schedule HOME HEALTH REFERRAL OP Referral Within 10 days (routine) Pre-operative clearance Cervical radiculopathy Ordered: 05/19/2024 Health Maintenance Due Date Last Done Comments [...] D LEVEL ONCE IN A LIFETIME-USE SMARTSET# [id number] Completed 02/08/2023, 07/09/2022, 07/04/2021, Additional history exists [...] as of this encounter Visit Diagnoses Diagnosis Pre-operative clearance- Primary Preoperative examination, unspecified Cervical radiculopathy Brachial neuritis or radiculitis nos Hyponatremia Hyposmolality and/or hyponatremia Type 2 diabetes mellitus with hemoglobin A1c goal of less than 7.0% ([facility]) documented in this encounter Care Teams Advertising Representative Relationship Specialty Start Date End Date Lisandra Beard DO [address] [place] [address] PCP - General Family Medicine 05/08/24 Shmuel Patel PA Specialist Medical Oncology 09/15/15 Marialuisa Ram [facility] [place] Specialist 09/15/15 documented as of this encounter
--- OUTSIDE RECORDS SUMMARY | 2024-05-26 13:53 | External Medical Summary ---
Author Name Unknown Address Unknown Organization K01:[facility] - [address] [place] [address] Laboratory Report Ordering Provider Test Date Status SCHUYLER LEVI 05/19/2024 14:56:35 Final Observation Date Value Abnormality Reference (Units ) Status BUN 05/19/2024 14:56:35 18 6-20 (mg/dL) Final Creatinine 05/19/2024 14:56:35 0.8 0.5-1.0 (mg/dL) Final Glomerular filtration rate/1.73 sq M.predicted [Volume Rate/Area] in Serum, Plasma or Blood by Creatinine-based formula (CKD-EPI) 05/19/2024 14:56:35 79 >=60 (mL/min) Final eGFR is calculated based on the CKD-EPI 2020 equation Sodium 05/19/2024 14:56:35 137 135-146 (m mol/L) Final Potassium 05/19/2024 14:56:35 4.6 3.5-5.1 (m mol/L) Final Cl 05/19/2024 14:56:35 101 98-107 (mm ol/L) Final CO2 05/19/2024 14:56:35 23 22-32 (mmo l/L) Final Anion gap 05/19/2024 14:56:35 13 7-15 (mmol /L) Final Glucose 05/19/2024 14:56:35 98 70-120 (mg /dL) Final Calcium 05/19/2024 14:56:35 9.5 8.4-10.2 ( mg/dL) Final Performing Location [facility] - [address] [place] [address] [address]
--- OUTSIDE RECORDS SUMMARY | 2024-05-26 13:53 | External Medical Summary | Summary of Care ---
Author Name Unknown Organization [facility] Address [address] [place] [address] Phone [phone] Care Team Providers Care Beveler Name Role Phone Lisandra Beard DO Primary Care Provider [phone] Reason for Visit * Reason Onset Date Comments Advice 05/20/2024 Encounter Details Date Type Department Care Team (Late st Contact Info) Description 05/20/2024 Telephone Family Practice [address] [place] [address] [place] [address] Lisandra Beard DO [address] [place] [address] Advice Allergies Active Allergy Reactions Criticality Noted Date [...] 9 Each 3 07/26/2023 Active Dexcom G7 Inventory Control Clerk DeviceIndications:Ty pe 2 diabetes mellitus with hemoglobin A1c goal of less than 7.0% (HCC) Use to monitor blood sugars continuously E11.9 1 Each 07/26/2023 Active Nystatin 552441 UNIT/GM External Cream apply topically twice daily as needed for rash 30 g 3 08/02/2023 Active Ketotifen Fumarate 0.025 % Ophthalmic Solution 1 Drop in the morning and 1 Drop before bedtime. Active [place] Pain Relieving 80-24-16 MG External Patch (Juluatw-Jowizip-Jyg sicum) Apply topically to affected area. Active OneTouch Verio w/Device KitIndications:Type 2 diabetes mellitus with hemoglobin A1c goal of less than 7.0% ([facility]) Use once daily to check blood sugars. [...] hemoglobin A1c goal of less than 7.0% ([facility]) TAKE 1 TABLET BY MOUTH EVERY DAY [...] mRNA, LNP-s, No Pre serve, 2-Dose Series (Andre Phillipe) 09/01/2021,01/12/2021,12/22/2020 COVID-19, LNP-s, No Preserve , Matthew-sucrose, Ages 12+ (Pfizer) 05/07/2022 COVID-19, MRNA-LNP, 23-24, P F, 30 MCG/0.3 mL, 12 YRS AND ABOVE, IM (OnShift-Comirnaty) 09/14/2023 Covid-19, Mrna, Lnp-s, Pf, B ivalent, 30 Mcg, IM, 12 yrs and above (Andre Phillipe) 09/25/2022 Hepatitis B, 20+ yrs 11/08/2014,06/07/2014,05/05 Pneumococcal [...] encounter Miscellaneous Notes * Telephone Encounter - Brandi Tarango LPN - 05/21/2024 1:57 PM EDT See other encounter. * Telephone Encounter - Lisandra Beard DO - 05/20/2024 4:54 PM EDT Please let pt know: Her sodium was normal on our repeat here. No need to change anything. We have sent form to Dr. Hernandez's office and she can undergo her surgery. documented in this encounter Plan of Treatment Upcoming Encounters Date Type Department Care Team (Late st Contact Info) Description 06/16/2024 9:20 AM EDT Office Visit Family Practice [facility] [address] [place] [address] Lisandra Beard DO [address] [place] [address] 06/26/2024 2:00 PM EDT Nurse Only Ancillary [facility] [address] [place] [address] College, Nurse Annual Wellness Visit [address] [address] 11/02/2024 11:00 AM EST [address], [address] [address] 02/22/2025 11:00 AM EDT Office [address] [address] Lokesh Giordano MD [address] [place], [place] [address] [address] Health Maintenance Due Date Last Done Comments COVID-19 Vaccine (2022- season) 2024 09/14/2023, 09/25/2022, 05/07/2022, Additional history [...] D LEVEL ONCE IN A LIFETIME-USE SMARTSET# [id number] Completed 02/08/2023, 07/09/2022, 07/04/2021, Additional history exists [...] filedocumented as of this encounter Care Teams Beveler Relationship Specialty Start Date End Date Lisandra Beard DO [address] [place] [address] PCP - General Family Medicine 05/08/24 Shmuel Patel PA Specialist Medical Oncology 09/15/15 Marialuisa Ram [facility] [place] Specialist 09/15/15 documented as of this encounter
--- OUTSIDE RECORDS SUMMARY | 2024-05-26 13:54 | External Medical Summary | Summary of Care ---
Author Name Unknown Organization [facility] Address [address] [place] [address] Phone [phone] Care Team Providers Care Cigar Head Puncher Name Role Phone Lisandra Beard DO Primary Care Provider [phone] Encounter Details Date Type Department Care Team (Late st Contact Info) Description 05/14/2024 Orders Only Family Practice [address], [place] [address] [place] [phone] Lisandra Beard DO 293 [place] [address] Allergies Active Allergy Reactions Criticality Noted Date [...] as of this encounter (statuses as of 05/14/2024) Medications Medication Sig Dispensed Refills Start Date [...] 9 Each 3 07/26/2023 Active Dexcom G7 Superintendent Overhead Distribution DeviceIndications:Ty pe 2 diabetes mellitus with hemoglobin A1c goal of less than 7.0% (HCC) Use to monitor blood sugars continuously E11.9 1 Each 07/26/2023 Active Nystatin 670890 UNIT/GM External Cream apply topically twice daily as needed for rash 30 g 3 08/02/2023 Active Ketotifen Fumarate 0.025 % Ophthalmic Solution 1 Drop in the morning and 1 Drop before bedtime. Active [place] Pain Relieving 80-24-16 MG External Patch (Ragrfzg-Frwbvcy-Xdd sicum) Apply topically to affected area. Active [...] as of this encounter (statuses as of 05/14/2024) Active Problems Problem Noted Date Diagnosed Date [...] as of this encounter (statuses as of 05/14/2024) Resolved Problems Problem Noted Date Diagnosed Date [...] as of this encounter (statuses as of 05/14/2024) Immunizations Name Administration Dates Next Due COVID-19 mRNA, LNP-s, No Pre serve, 2-Dose Series (happin!) 09/01/2021,01/12/2021,12/22/2020 COVID-19, LNP-s, No Preserve , Matthew-sucrose, Ages 12+ (happin!) 05/07/2022 COVID-19, MRNA-LNP, 23-24, P F, 30 MCG/0.3 mL, 12 YRS AND ABOVE, IM ([employer]) 09/14/2023 Covid-19, Mrna, Lnp-s, Pf, B ivalent, 30 Mcg, IM, 12 yrs and above (happin!) 09/25/2022 Hepatitis B, 20+ yrs 11/08/2014,06/07/2014,05/05 Pneumococcal [...] on file documented as of this encounter Plan of Treatment Upcoming Encounters Date Type Department Care Team (Late st Contact Info) Description 05/19/2024 2:20 PM EDT Office Visit Family Practice 65 [facility] 293 [place] [phone] Lisandra Beard, DO 293 [place] [address] 06/16/2024 9:20 AM EDT Office Visit Family Practice [address] [place] [phone] Lisandra Beard, DO 293 [place] [address] 06/26/2024 2:00 PM EDT Nurse Only Ancillary [address] [place] [address] [place], Nurse Annual Wellness Visit [address] [place] [address] 11/02/2024 11:00 AM EST Imaging Radiology, [address] [place] [address] 02/22/2025 11:00 AM EDT Office Visit Rheumatology [address] [place] [address] Lokesh Giordano MD [address] [place] [address] [place] [address] Health Maintenance Due Date Last Done Comments COVID-19 Vaccine ( season) 2024 09/14/2023, 09/25/2022, 05/07/2022, Additional history exists *BISPHONATE OR OTHER ACCEPTABLE MEDICATION NEEDED FOR OSTEOPOROSIS (REFER TO SMARTSET #1146) 02/24/2024 Albumin/Creatinine Ratio 06/12/2024 023, 07/09/2022, 07/04/2021, Additional history exists HbA1c 07/08/2024 05/13/2024, 12/26, 07/08/2023, Additional history exists Depression Monitoring 09/25/2024 09/25/2023 DXA Scan 10/30/2024 10/30/2022, 04/2022, 10/17/2020, Additional history exists Diabetic Eye Exam 02/27/2025 [...] D LEVEL ONCE IN A LIFETIME-USE SMARTSET# [id number] Completed 02/08/2023, 07/09/2022, 07/04/2021, Additional history exists [...] Not on filedocumented as of this encounter Procedures Procedure Name Priority Date/Time Associated Diagnosis Comments XR CHEST 2 VIEWS Routine 05/13/2024 CHEMISTRY-OUTSIDE Routine 05/13/2024 CHEMISTRY-OUTSIDE Routine 05/13/2024 CHEMISTRY-OUTSIDE Routine 05/13/2024 documented in this encounter Results * CHEMISTRY-OUTSIDE (05/13/2024) Not all results display below - see scan for full detail OUTSIDE LAB (SEE SCANNED REPORT) Comment:"SCAN INCLUDES [facility]MISS[facility]" - CBC/DIFF, PLT CREATININE-OUTSID E LAB OUTSIDE LAB (SEE SCANNED REPORT) EGFR-OUTSIDE LAB OUT SIDE LAB (SEE SCANNED REPORT) POTASSIUM-OUTSIDE LAB OUTSIDE LAB (SEE SCANNED REPORT) GLUCOSE-OUTSIDE LAB OUTSIDE LAB (SEE SCANNED REPORT) HOURS FASTING OUTSID E LAB (SEE SCANNED REPORT) TRIGLYCERIDES-OUT SIDE LAB OUTSIDE LAB (SEE SCANNED REPORT) CHOLESTEROL-OUTSI DE LAB OUTSIDE LAB (SEE SCANNED REPORT) HDL-OUTSIDE LAB OUTS DE LAB (SEE SCANNED REPORT) CHOL/HDL RATIO-OUTSIDE LAB OUTSIDE LA B (SEE SCANNED REPORT) LDL (CALCULATED)-OUTS DE LAB OUTSIDE LAB (SEE SCANNED REPORT) LDL (DIRECT MEASURE)-OUTSIDE LAB OUTSIDE LAB (SEE SCANNED REPORT) HEMOGLOBIN, D9O-[id number] LAB OUTSIDE LAB (SEE SCANNED REPORT) PHOSPHORUS-OUTSID E LAB OUTSIDE LAB (SEE SCANNED REPORT) PTH-OUTSIDE LAB OUTS DE LAB (SEE SCANNED REPORT) MICROALBUMIN RATIO-OUTSIDE LAB OUTSIDE LA B (SEE SCANNED REPORT) PROTEIN, UA-OUTSIDE LAB OUTSIDE LAB (SEE SCANNED REPORT) HGB 12.4 12.0 - 16.0 G/DL OUTSIDE LAB (SEE SCANNED REPORT) 05/13/2024 Taye Hernandez DO LABORATORY OUTSIDE LAB (SEE SCANNED REPORT) * (ABNORMAL) CHEMISTRY-OUTSIDE (05/13/2024) Not all results display below - see scan for full detail OUTSIDE LAB (SEE SCANNED REPORT) Comment:"SCAN INCLUDES [facility]" - HGB A1C, EAG CREATININE-OUTSID E LAB OUTSIDE LAB (SEE SCANNED REPORT) EGFR-OUTSIDE LAB OUT SIDE LAB (SEE SCANNED REPORT) POTASSIUM-OUTSIDE LAB OUTSIDE LAB (SEE SCANNED REPORT) GLUCOSE-OUTSIDE LAB OUTSIDE LAB (SEE SCANNED REPORT) HOURS FASTING OUTSID E LAB (SEE SCANNED REPORT) TRIGLYCERIDES-OUT SIDE LAB OUTSIDE LAB (SEE SCANNED REPORT) CHOLESTEROL-OUTSI DE LAB OUTSIDE LAB (SEE SCANNED REPORT) HDL-OUTSIDE LAB OUTS DE LAB (SEE SCANNED REPORT) CHOL/HDL RATIO-OUTSIDE LAB OUTSIDE LA B (SEE SCANNED REPORT) LDL (CALCULATED)-OUTS DE LAB OUTSIDE LAB (SEE SCANNED REPORT) LDL (DIRECT MEASURE)-OUTSIDE LAB OUTSIDE LAB (SEE SCANNED REPORT) HEMOGLOBIN, A1Q-RSNXSJQ LAB 5.9(A) 4.5 - 5.6 % OUTSIDE LAB (SEE SCANNED REPORT) PHOSPHORUS-OUTSID E LAB OUTSIDE LAB (SEE SCANNED REPORT) PTH-OUTSIDE LAB OUTS DE LAB (SEE SCANNED REPORT) MICROALBUMIN RATIO-OUTSIDE LAB OUTSIDE LA B (SEE SCANNED REPORT) PROTEIN, UA-OUTSIDE LAB OUTSIDE LAB (SEE SCANNED REPORT) HGB OUTSIDE LA B (SEE SCANNED REPORT) 05/13/2024 Dorinda Caceres PA-C LABORATORY OUTSIDE LAB (SEE SCANNED REPORT) * (ABNORMAL) CHEMISTRY-OUTSIDE (05/13/2024) Not all results display below - see scan for full detail OUTSIDE LAB (SEE SCANNED REPORT) Comment:"SCAN INCLUDES [facility]MISSION [facility]" - BMP CREATININE-OUTSID E LAB 0.82 0.6 - 1.2 MG/DL OUTSIDE LAB (SEE SCANNED REPORT) EGFR-OUTSIDE LAB OUT SIDE LAB (SEE SCANNED REPORT) POTASSIUM-OUTSIDE LAB 4.0 3.5 - 5.1 MMOL/L OUTSIDE LAB (SEE SCANNED REPORT) GLUCOSE-OUTSIDE LAB 103(A) 70 - 99 MG/DL OUTSIDE LAB (SEE SCANNED REPORT) HOURS FASTING OUTSID E LAB (SEE SCANNED REPORT) TRIGLYCERIDES-OUT SIDE LAB OUTSIDE LAB (SEE SCANNED REPORT) CHOLESTEROL-OUTSI DE LAB OUTSIDE LAB (SEE SCANNED REPORT) HDL-OUTSIDE LAB OUTS DE LAB (SEE SCANNED REPORT) CHOL/HDL RATIO-OUTSIDE LAB OUTSIDE LA B (SEE SCANNED REPORT) LDL (CALCULATED)-OUTS DE LAB OUTSIDE LAB (SEE SCANNED REPORT) LDL (DIRECT MEASURE)-OUTSIDE LAB OUTSIDE LAB (SEE SCANNED REPORT) HEMOGLOBIN, I2G-NZVJOVP LAB OUTSIDE LAB (SEE SCANNED REPORT) PHOSPHORUS-OUTSID E LAB OUTSIDE LAB (SEE SCANNED REPORT) PTH-OUTSIDE LAB OUTS DE LAB (SEE SCANNED REPORT) MICROALBUMIN RATIO-OUTSIDE LAB OUTSIDE LA B (SEE SCANNED REPORT) PROTEIN, UA-OUTSIDE LAB OUTSIDE LAB (SEE SCANNED REPORT) HGB OUTSIDE LA B (SEE SCANNED REPORT) 05/13/2024 Taye Hernandez DO LABORATORY OUTSIDE LAB (SEE SCANNED REPORT) * XR CHEST 2 VIEWS (05/13/2024) Anatomical Region Laterality Modality Chest Other 05/13/2024 Taye Hernandez DO RADIOLOGY ( RAD GENERAL) documented in this encounter Care Teams Cigar Head Puncher Relationship Specialty Start Date End Date Lisandra Beard DO [address] [place] [address] PCP - General Family Medicine 05/08/24 Shmuel Patel PA Specialist Medical Oncology 09/15/15 Marialuisa Ram [facility] Cancer [place], [place] Specialist 09/15/15 documented as of this encounter
--- OUTSIDE RECORDS SUMMARY | 2024-05-26 13:54 | External Medical Summary | Summary of Care ---
Author Name Unknown Organization [facility] Address [address] [facility] [place] [address] Phone [phone] Care Team Providers Care Wood Carving Lathe Operator Name Role Phone TiffanieLisandra guerrero Primary Care Provider [phone] Encounter Details Date Type Department Care Team (Late st Contact Info) Description 05/13/2024 Result Scan Unspecified Department <No scans attached> Allergies Active Allergy Reactions Criticality Noted Date [...] hemoglobin A1c goal of less than 7.0% ([facility]) Use to monitor blood sugars continuously , changing every 10 days, E11.9 9 Each 3 07/26/2023 Active Dexcom G7 After School Caregiver DeviceIndications:Ty pe 2 diabetes mellitus with hemoglobin A1c goal of less than 7.0% ([facility]) Use to monitor blood sugars continuously E11.9 1 Each 07/26/2023 Active Nystatin 883840 UNIT/GM External Cream apply topically twice daily as needed for rash 30 g 3 08/02/2023 Active Ketotifen Fumarate 0.025 % Ophthalmic Solution 1 Drop in the morning and 1 Drop before bedtime. Active [place] Pain Relieving 80-24-16 MG External Patch (Vwppgtf-Yzpkdrb-Zdh sicum) Apply topically to affected area. Active [...] mRNA, LNP-s, No Pre serve, 2-Dose Series ([employer]) 09/01/2021,01/12/2021,12/22/2020 COVID-19, LNP-s, No Preserve , Matthew-sucrose, Ages 12+ ([employer]) 05/07/2022 COVID-19, MRNA-LNP, 23-24, P F, 30 MCG/0.3 mL, 12 YRS AND ABOVE, IM ([employer]-Comirnaty) 09/14/2023 Covid-19, Mrna, Lnp-s, Pf, B ivalent, 30 Mcg, IM, 12 yrs and above ([employer]) 09/25/2022 Hepatitis B, 20+ yrs 11/08/2014,06/07/2014,05/05 Pneumococcal [...] PM EDT Office Visit Family Practice [address], [place] 293 [place] [address] Lisandra Beard, DO 293 [facility], [place] [address] 06/16/2024 9:20 AM EDT Office Visit Family Practice [address], [place] [phone] Lisandra Beard, DO 293 [facility], [place] [address] 06/26/2024 2:00 PM EDT Nurse Only Ancillary [address], [place] [address] [place], Nurse Annual Wellness Visit [address] [place] [address], [place] [address] 11/02/2024 11:00 AM EST Imaging Radiology, [address] [place] [address] 02/22/2025 11:00 AM EDT Office Visit Rheumatology [address] [place], [place] [address] Lokesh Giordano MD [address] [place] [address] [place] [address] Health Maintenance Due Date Last Done Comments COVID-19 Vaccine ( season) 2024 09/14/2023, 09/25/2022, 05/07/2022, Additional history exists *BISPHONATE OR OTHER ACCEPTABLE MEDICATION NEEDED FOR OSTEOPOROSIS (REFER TO SMARTSET #1146) 02/24/2024 Albumin/Creatinine Ratio 06/12/2024 023, 07/09/2022, 07/04/2021, Additional history exists HbA1c 07/08/2024 05/13/2024, 12/26, 07/08/2023, Additional history exists Depression Monitoring 09/25/2024 09/25/2023 DXA Scan 10/30/2024 10/30/2022, 1204/2022, 10/17/2020, Additional history exists Diabetic Eye Exam [...] D LEVEL ONCE IN A LIFETIME-USE SMARTSET# [id number] Completed 02/08/2023, 07/09/2022, 07/04/2021, Additional history exists [...] Procedure Name Priority Date/Time Associated Diagnosis Comments OUTSIDE LAB RESULTS 05/13/2024 OUTSIDE LAB RESULTS 05/13/2024 EKG SCANNED RESULT 05/13/2024 documented in this encounter Results * OUTSIDE LAB RESULTS (05/13/2024) 05/13/2024 No Physician Data Unknown LABORATORY * OUTSIDE LAB RESULTS (05/13/2024) 05/13/2024 No Physician Data Unknown LABORATORY * EKG SCANNED RESULT (05/13/2024) 05/13/2024 No Physician Data Unknown EKG documented in this encounter Care Teams Wood Carving Lathe Operator Relationship Specialty Start Date End Date Lisandra Beard DO [address] [place] [address] PCP - General Family Medicine 05/08/24 Shmuel Patel PA Specialist Medical Oncology 09/15/15 Marialuisa Ram [facility] [place] Specialist 09/15/15 documented as of this encounter
--- OUTSIDE RECORDS SUMMARY | 2024-05-26 13:54 | External Medical Summary | Summary of Care ---
Author Name Unknown Organization [facility] Address [address] [place] [address] Phone [phone] Care Team Providers Care Gender Studies Professor Name Role Phone Lisandra Beard DO Primary Care Provider [phone] Reason for Visit * Reason Onset Date Comments Advice 05/13/2024 Encounter Details Date Type Department Care Team (Late st Contact Info) Description 05/13/2024 Telephone Family Practice [address], [place] [address] [place] [address] Lisandra Beard DO 293 [place] [address] Advice Allergies Active Allergy Reactions [...] as of this encounter (statuses as of 05/13/2024) Medications Medication Sig Dispensed Refills Start Date [...] 9 Each 3 07/26/2023 Active Dexcom G7 Guide Plant DeviceIndications:Ty pe 2 diabetes mellitus with hemoglobin A1c goal of less than 7.0% (HCC) Use to monitor blood sugars continuously E11.9 1 Each 07/26/2023 Active Nystatin 737690 UNIT/GM External Cream apply topically twice daily as needed for rash 30 g 3 08/02/2023 Active Ketotifen Fumarate 0.025 % Ophthalmic Solution 1 Drop in the morning and 1 Drop before bedtime. Active [place] Pain Relieving 80-24-16 MG External Patch ([place]wba-Lglpxub-Zjk sicum) Apply topically to affected area. Active OneTouch Verio w/Device KitIndications:Type 2 diabetes mellitus with hemoglobin A1c goal of less than 7.0% ([facility]) Use once daily to check blood sugars. [...] hemoglobin A1c goal of less than 7.0% ([facility]) TAKE 1 TABLET BY MOUTH EVERY DAY [...] as of this encounter (statuses as of 05/13/2024) Active Problems Problem Noted Date Diagnosed Date [...] as of this encounter (statuses as of 05/13/2024) Resolved Problems Problem Noted Date Diagnosed Date [...] as of this encounter (statuses as of 05/13/2024) Immunizations Name Administration Dates Next Due COVID-19 mRNA, LNP-s, No Pre serve, 2-Dose Series ([employer]) 09/01/2021,01/12/2021,12/22/2020 COVID-19, LNP-s, No Preserve , Matthew-sucrose, Ages 12+ ([employer]) 05/07/2022 COVID-19, MRNA-LNP, 23-24, P F, 30 MCG/0.3 mL, 12 YRS AND ABOVE, IM ([employer]-Comirnat) 09/14/2023 Covid-19, Mrna, Lnp-s, Pf, B ivalent, 30 Mcg, IM, 12 yrs and above ([employer]) 09/25/2022 Hepatitis B, 20+ yrs 11/08/2014,06/07/2014,05/05 [...] Split, I IV3, With Preserve, Inj 08/19/2014,08/28/2013,08/22/2012,11/2010,08/11/2010,08/31/2009,08/17/20 08,09/17/2006,09/28/2003 08/19/2015 TD, Preservative Free 09/15/2018 TDAP, Age [...] Telephone Encounter - Jessica Mosquera LPN - 05/13/2024 3:40 PM EDT Noted. * Telephone Encounter - Mitzy Faustin OSA - 05/13/2024 3:38 PM EDT Pt was scheduled in a cancellation spot, 6. Pt aware and agreeable to this appt * Telephone Encounter - Lisandra Beard DO - 05/13/2024 3:35 PM EDT Pt will need pre-op prior to her surgery and we have nothing available before scheduled date of 05/26. I have no testing available from pre-op anesthesia. Will likely need to move her surgery back to ensure everything is situated. documented in this encounter Plan of Treatment Upcoming Encounters Date Type Department Care Team (Late st Contact Info) Description 05/19/2024 2:20 PM EDT Office Visit Family [address] 293 [facility] [place] [phone] Lisandra Beard DO 293 [place] [address] 06/16/2024 9:20 AM EDT Office Visit [address] 293 [place] [phone] Lisandra Beard DO 293 [place] [address] 06/26/2024 2:00 PM EDT Nurse Only Ancillary [address], [place] [address] [place] [address] College, Nurse Annual Wellness Visit [address] [facility] 293 [facility], [place] [address] 11/02/2024 11:00 AM EST Imaging Radiology, [address] [place] [address] 02/22/2025 11:00 AM EDT Office Visit Rheumatology [address] [place] [address] Lokesh Giordano MD [address] [facility] [place] [address] Health Maintenance Due Date Last Done Comments COVID-19 Vaccine ( season) 2024 09/14/2023, 09/25/2022, 05/07/2022, Additional history exists *BISPHONATE OR OTHER ACCEPTABLE MEDICATION NEEDED FOR OSTEOPOROSIS (REFER TO SMARTSET #1146) 02/24/2024 Albumin/Creatinine Ratio 06/12/2024 023, 07/09/2022, 07/04/2021, Additional history exists HbA1c 07/08/2024 01/08/2024, 06/25, 06/12/2023, Additional history exists Depression Monitoring 09/25/2024 09/25/2023 DXA Scan 10/30/2024 10/30/2022, 1204/2022, 10/17/2020, Additional history exists Diabetic Eye Exam 02/27/2025 02/28/2024, , 2023, Additional history exists Diabetic Foot Exam 03/10/2025 03/10/2024, 0 02/11/2023, 01/08/2022, Additional history exists GFR 03/10/2025 03/10/2024, 12/26, 11/06/2023, Additional history exists DTaP,Tdap,and Td Vaccines (3 [...] D LEVEL ONCE IN A LIFETIME-USE SMARTSET# [id number] Completed 02/08/2023, 07/09/2022, 07/04/2021, Additional history exists [...] filedocumented as of this encounter Care Teams Gender Studies Professor Relationship Specialty Start Date End Date Lisandra Beard DO 293 [place] [address] PCP - General Family Medicine 05/08/24 Shmuel Patel PA Specialist Medical Oncology 09/15/15 Marialuisa Ram [facility] Cancer [place], [place] Specialist 09/15/15 documented as of this encounter
--- OUTSIDE RECORDS SUMMARY | 2024-05-26 13:54 | External Medical Summary | Summary of Care ---
Author Name Unknown Organization [facility] Address [address] [place] [address] Phone [phone] Care Team Providers Care Bookstore Manager Name Role Phone Lisandra Beard DO Primary Care Provider [phone] Reason for Visit * Reason Onset Date Comments Advice 05/13/2024 Encounter Details Date Type Department Care Team (Late st Contact Info) Description 05/13/2024 Telephone Family Practice [address], [place] [address] [place] [address] Lisandra Beard DO 293 [place] [address] Advice Allergies Active Allergy Reactions [...] 9 Each 3 07/26/2023 Active Dexcom G7 Pharmacist Intern DeviceIndications:Ty pe 2 diabetes mellitus with hemoglobin A1c goal of less than 7.0% (HCC) Use to monitor blood sugars continuously E11.9 1 Each 07/26/2023 Active Nystatin 480300 UNIT/GM External Cream apply topically twice daily as needed for rash 30 g 3 08/02/2023 Active Ketotifen Fumarate 0.025 % Ophthalmic Solution 1 Drop in the morning and 1 Drop before bedtime. Active [place] Pain Relieving 80-24-16 MG External Patch (Jnvfswk-Yjfpprn-Iae sicum) Apply topically to affected area. Active OneTouch Verio w/Device KitIndications:Type 2 diabetes mellitus with hemoglobin A1c goal of less than 7.0% ([facility]) Use once daily to check [...] hemoglobin A1c goal of less than 7.0% ([facility]) TAKE 1 TABLET BY MOUTH [...] mRNA, LNP-s, No Pre serve, 2-Dose Series ([employer]) 09/01/2021,01/12/2021,12/22/2020 COVID-19, LNP-s, No Preserve , Matthew-sucrose, Ages 12+ ([employer]) 05/07/2022 COVID-19, MRNA-LNP, 23-24, P F, 30 MCG/0.3 mL, 12 YRS AND ABOVE, IM ([employer]-Comirnat) 09/14/2023 Covid-19, Mrna, Lnp-s, Pf, B ivalent, 30 Mcg, IM, 12 yrs and above ([employer]) 09/25/2022 Hepatitis B, 20+ yrs 11/08/2014,06/07/2014,05/05 Pneumococcal [...] 05/19/2024 2:20 PM EDT Office Visit Family [address] 293 [place] [phone] Lisandra Beard DO 293 [place] [address] 06/16/2024 9:20 AM EDT Office Visit [address] 293 [place] [phone] Lisandra Beard DO 293 [place] [address] 06/26/2024 2:00 PM EDT Nurse Only Ancillary [address], [place] [address] [place] [address] College, Nurse Annual Wellness Visit [address] [facility] 293 [facility], [place] [address] 11/02/2024 11:00 AM EST Imaging Radiology, [address] [place] [address] 02/22/2025 11:00 AM EDT Office Visit Rheumatology [address] [place] [address] Lokesh Giordano MD [address] [facility] [place] [address] Health Maintenance Due Date Last Done Comments [...] D LEVEL ONCE IN A LIFETIME-USE SMARTSET# [id number] Completed 02/08/2023, 07/09/2022, 07/04/2021, Additional history exists [...] filedocumented as of this encounter Care Teams Bookstore Manager Relationship Specialty Start Date End Date Lisandra Beard DO 293 [place] [address] PCP - General Family Medicine 05/08/24 Shmuel Patel PA Specialist Medical Oncology 09/15/15 Marialuisa Ram [facility] Cancer [place], [place] Specialist 09/15/15 documented as of this encounter
--- NOTE | 2024-05-26 14:02 | Fluoroscopy Report ---
FL cervical 2-3V CLINICAL HISTORY: ACDF C4-C6 C5 CORPECTOMY COMPARISON STUDY: Cervical spine CT June 25, 2021. FLUOROSCOPY TIME: 8.3 seconds. Ka, r: 0.75 mGy FLUOROSCOPIC IMAGES: 2 FINDINGS: Fluoroscopy was provided during C5 corpectomy and C4-C6 anterior discectomy and fusion. Lul ryu is intact. Surgical drain is in place. Endotracheal tube is incidentally noted. IMPRESSION: Fluoroscopy provided during C5 corpectomy and C4-C6 anterior discectomy and fusion. ACT 112: Negative or not required by law. Electronically signed by: Amaury David M.D. 05/26/2024 2:01 PM
--- NOTE | 2024-05-26 15:56 | Consultation ---
Date of Consultation May 26, 2024 Assessment & Plan (1) Myelopathy concurrent with and due to spinal stenosis of cervical region: (2) Diabetes mellitus, type 2: (3) Hypertension: (4) Dyslipidemia: Plan This is a 74-year-old female who has significant past medical history of T2DM, HTN, HLD, diabetic polyneuropathy, GERD, senile osteoporosis, history of lumbar spinal stenosis, chronic low back pain, history of migraine and depression with anxiety who presents for elective cervical procedure by Dr. Hernandez. S/P ACDF C4-C6 with C5 corpectomy by Dr. Hernandez, tolerated procedure well, POD #0 pain/wound management per orthopedics continue cervical collar, HAMILTON drain management per ortho activity and diet per orthopedics T2DM well controlled, a1c 5.9 hold tradjenta, glycemic pharmacy on board - appreciate their recs HLD chronic, stable continue statin HTN BP stable post op continue lisinopril Diabetic polyneuropathy continue pregabalin Senile Osteoporosis continue vit D DVT ppx: SCDS, per primary FULL CODE PCP: Dr. Beard Dispo: per primary Thank you for this consultation. We will follow the patient with you during their hospital stay. You can reach a member of the [facility] Hospitalist Team 17/06 via hospitalist role on tiger text. A total of 50 minutes was spent coordinating, documenting, and providing care for this patient excluding time spent in the performance of separately billed services. This included personally viewing all current laboratories and imaging studies, medication reconciliation, outpatient chart review, and discussion with specialists. Supervising Physician Co-Signing Physician Notes I have reviewed the advanced practitioner's documentation on the date of service referenced in note, and I agree with, and take responsibility for the plan of care. I saw the patient at bedside with Shelley Varela PA-C post op cervical laminectomy. She appears to be in good spirits and stable post op. Chart and data reviewed. I have spent a total of 22 minutes coordinating, documenting and providing care for the patient excluding time spent in the performance of separately billed services or time spent by another provider/QHP. Thank you Dr. Hernandez for the consult. History of Present Illness Requesting Physician: Dr. Hernandez Reason for Consultation: post op medical management Attending Physician: Taye Hernandez, DO History of Present Illness This is a 74-year-old female who has significant past medical history of T2DM, HTN, HLD, diabetic polyneuropathy, GERD, senile osteoporosis, history of lumbar spinal stenosis, chronic low back pain, history of migraine and depression with anxiety who presents for elective cervical procedure by Dr. Hernandez. She underwent a C4-C6 ACDF with a C5 corpectomy. She reports prior to procedure having radicular symptoms to right upper extremity. She previously was [id number] but due to symptoms was trying to utilize her left hand. 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 She is otherwise very active. She currently denies any difficulty swallowing, shortness of breath, fever, chills, sweats, nausea, vomiting or abdominal pain. She is tolerating clear liquid diet. She has hx of T2DM on tradjenta. She has a CGM which helps her manage her diabetes. Her most recent a1c was 5.9 on May 13, 2024. She also has a hx of HTN managed with oral antihypertensives. Her outpt medical record was reviewed. Allergies Allergy/AdvReac Type Severity Reaction Status Date / Time gabapentin Allergy Intermediate Nausea, Verified 05/26/24 08:34 dizziness, forgetfulness diphenhydramine Allergy Unknown Anxiety Verified 05/26/24 08:34 nickel Allergy Unknown Rash Verified 05/26/24 08:34 Home Medications Medication Instructions Recorded Confirmed Type atorvastatin 20 mg tablet (Lipitor) 20 mg PO HS 08/19/18 05/26/24 History lifitegrast 5 % eye drops in a 1 drp OPB BID 10/13/19 05/26/24 History dropperette (Xiidra) cyanocobalamin (vitamin B-12) 500 500 mcg PO QAM 10/05/21 05/26/24 History mcg tablet (Vitamin B-12) mirtazapine 15 mg tablet (Remeron) 7.5 - 15 mg PO HS PRN Insomnia 10/05/21 05/26/24 History multivitamin 1 tab PO QPM 10/05/21 05/26/24 History melatonin 5 mg tablet 10 mg PO HS PRN Insomnia 04/10/23 05/26/24 History camphor 3.1 %-methyl salicylate 15 1 ea topical BID PRN Pain 04/11/23 05/26/24 History %-menthol 10 % topical gel (Salonpas Deep Relieving) eflornithine 13.9 % topical cream 1 applic topical BID PRN Skin 04/11/23 05/26/24 History (Vaniqa) Irritation lidocaine 5 % topical patch 1 patch topical DAILY PRN Pain 04/11/23 05/26/24 History nystatin 100,000 unit/gram topical 1 applic topical BID PRN Rash 04/11/23 05/26/24 History cream linagliptin 5 mg tablet (Tradjenta) 5 mg PO QAM 12/24/23 05/26/24 History duloxetine 20 mg capsule,delayed 20 mg PO QAM 05/06/24 05/26/24 History release lisinopril 5 mg tablet 5 mg PO HS 05/06/24 05/26/24 History polydextrose 2.5 gram chewable 2.5 g PO DAILY 05/06/24 05/26/24 History tablet (FiberWell) pregabalin 25 mg capsule 25 mg PO BID 05/06/24 05/26/24 History psyllium husk 3.4 gram/5.4 gram 1 tbsp PO Q2D PRN Constipation 05/06/24 05/26/24 History oral powder (Metamucil) vitamin B complex 1 cap PO DAILY 05/06/24 05/26/24 History hydrocodone 5 mg-acetaminophen 325 1 tab PO Q6H PRN Pain 05/13/24 05/26/24 History mg tablet tramadol 50 mg tablet 50 mg PO BID PRN Pain 05/13/24 05/26/24 History Patient History Medical History Scoliosis Thoracic spine x-ray 02/2022: Mild S-shaped scoliosis of the thoracolumbar spine Chronic kidney disease, stage 3a Thoracic facet syndrome Lumbar radiculitis Insomnia Osteoarthritis Myofascial pain Lumbar facet joint syndrome L4-L5 and lower spine Hypertension Dyslipidemia Diabetes mellitus, type 2 NIDDM Anxiety Coccydynia Chronic Ambulatory dysfunction Uses rollator to walk Depression Gina filter in place ~1994 Spinal stenosis L4-L5 Ovarian cancer ~1994- surgery/"maybe chemo" Migraine Hx Kidney stone on left side Hx DVT (deep venous thrombosis) ~1994 (r/t ovarian cancer) [place] filter placed Surgical History Hx of bilateral cataract extraction History of surgery RFA History of colonoscopy History of breast biopsy Right History of hysterectomy Total (r/t ovarian cancer) History of section History of endoscopic sinus surgery 30 years ago History of cholecystectomy History of appendectomy H/O laminectomy 1977, L3-4 Family History Brother Diabetes Social History Smoking Status: Never smoker Second Hand Exposure: No; Do You Dip or Chew Tobacco: No; Tobacco Cessation Education Requested by Patient: No Hx Alcohol Use: No Hx Substance Use: No Preferred Language: Malagasy Communication Ability: Effective Visual Impairment: No Limitations Hearing Ability: Normal Presentation Specialist Required: No Beliefs That Will Affect Care: None marital status: Current Living Situation: Alone current occupational status: retired 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 Other Information That Helps Us Care for You: No Feels Safe at Home: Yes Safety Concerns: Feels Safe At This Time Assistive Devices: Glasses and Other Assistive Devices Comment: rollator; reading glasses prn Review of Systems Review of Systems: All systems reviewed & are unremarkable except as noted in HPI & below Physical Exam Physical Exam: Constitutional: WD/WN, vitals as above, NAD, sitting up in bed, pleasant, conversing easily Head: Normocephalic, Atraumatic Neck: Cervical collar in place, HAMILTON drain in place with serosang drainage, dressing CDI Eyes: PERRL, conjunctivae normal, anicteric sclerae ENMT: external ear and nose normal, oropharynx normal Neck: trachea midline, no thyromegaly normal visual inspection Respiratory: normal respiratory effort, lungs clear to auscultation, no wheeze, rales, rhonchi. Normal insp/exp effort, no accessory muscle use Cardiovascular: RRR, no murmur, no edema Vessels: no JVD or carotid bruit Chest: normal inspection of chest Abdomen: normal bowel sounds, soft, nontender Musculoskeletal: no cyanosis or clubbing, AROM x4 Skin: no rashes, warm and dry normal turgor Neurologic: PERRL, EOMI, accommodation nl, no face palsy, no dysarthria CN's II-XI intact bilaterally and moves all extremities Psychiatric: A+Ox3, euthymic affect : deferred Results & Data Vital Signs (Past 12 Hours) Vital Signs Temp Pulse Pulse Resp BP BP Pulse Ox 05/26/24 15:32 71 15 97 05/26/24 15:01 36.4 C L 69 14 125/67 98 05/26/24 13:57 36.4 C L 63 16 129/69 100 05/26/24 13:42 66 14 98 05/26/24 13:30 36.4 C L 59 L 16 148/72 H 99 05/26/24 13:09 36.4 C L 61 14 157/80 H 98 05/26/24 12:40 60 12 160/72 H 98 05/26/24 12:30 62 12 158/73 H 98 05/26/24 12:20 36.3 C L 62 12 170/74 H 100 05/26/24 12:10 64 12 173/77 H 98 05/26/24 12:00 64 14 174/76 H 96 05/26/24 11:50 65 14 163/74 H 96 05/26/24 11:40 69 14 189/72 H 100 05/26/24 11:30 36.8 C 65 16 170/69 H 100 05/26/24 08:42 36.5 C 67 18 122/54 L 98 O2 Del Method O2 Flow Rate FiO2 05/26/24 15:32 Room Air 05/26/24 15:01 Room Air 05/26/24 13:57 Room Air 05/26/24 13:42 Room Air 21 05/26/24 13:30 Room Air 05/26/24 13:09 Room Air 05/26/24 12:40 Room Air 05/26/24 12:30 Room Air 05/26/24 12:20 Room Air 05/26/24 12:10 Room Air 05/26/24 12:00 Oxymask 2 05/26/24 11:50 Oxymask 4 05/26/24 11:40 Oxymask 6 05/26/24 11:30 Oxymask 6 05/26/24 08:42 Room Air Laboratory Results preoperative lab work was independently reviewed and interpreted by myself from 05/13/2024 including CBC, BMP, A1c and urinalysis. No significant abnormality. A1c 5.9. Diagnostic Findings Cervical Spine X-Ray 05/26/24 09:35 FL cervical 2-3V CLINICAL HISTORY: ACDF C4-C6 C5 CORPECTOMY COMPARISON STUDY: Cervical spine CT June 25, 2021. FLUOROSCOPY TIME: 8.3 seconds. Ka, r: 0.75 mGy FLUOROSCOPIC IMAGES: 2 FINDINGS: Fluoroscopy was provided during C5 corpectomy and C4-C6 anterior discectomy and fusion. Hardware is intact. Surgical drain is in place. Endotracheal tube is incidentally noted. IMPRESSION: Fluoroscopy provided during C5 corpectomy and C4-C6 anterior discectomy and fusion. ACT 112: Negative or not required by law. Electronically signed by: Amaury David M.D. 05/26/2024 2:01 PM Medications Administered Current Inpatient Medications Acetaminophen (Acetaminophen 500 Mg Tab) 1,000 mg PO PREOP TEJAL Stop: 05/26/24 18:00 Last Admin: 05/26/24 09:12 Dose: 1,000 mg Acetaminophen (Acetaminophen 500 Mg Tab) 1,000 mg PO Q8H PRN PRN Reason: MILD Pain Scale 1,2,3 & Pre PT Stop: 06/25/24 13:08 Al Hydrox/Mg Hydrox/Simethicone (Aluminum/Magnesium Susp 30 Ml Udc) 30 ml PO Q6H PRN PRN Reason: Dyspepsia Stop: 06/25/24 13:08 Artificial Tears (Artificial Tears) 1 drops OP QID PRN; Protocol PRN Reason: Dryness Stop: 06/25/24 13:22 Atorvastatin Calcium (Atorvastatin 20 Mg Tab) 20 mg PO HS TEJAL Stop: 06/25/24 20:59 Atropine Sulfate (Atropine Sulfate 0.1 Mg/Ml 10ml Syr) 0.5 mg IV Q1M PRN PRN Reason: PACU Use-HR<40 &/or Bradycardi Stop: 05/26/24 18:21 Bisacodyl (Bisacodyl 10 Mg Supp) 10 mg IN DAILY PRN PRN Reason: Constipation Stop: 06/25/24 13:08 Cyanocobalamin (Cyanocobalamin (B-12) 500 Mcg Tablet) 500 mcg PO QAM TEJAL Stop: 06/26/24 08:59 Dextrose (Dextrose 50% 50 Ml Syringe) 25 - 50 ml IV UD PRN; Protocol PRN Reason: Hypoglycemia Protocol Stop: 06/25/24 13:29 Diphenhydramine HCl (Diphenhydramine Capsule 25 Mg Cap) 25 mg PO Q6H PRN PRN Reason: Allergic Rhinitis/Insomnia Stop: 06/25/24 13:08 Duloxetine HCl (Duloxetine Hcl 20 Mg Cap) 20 mg PO QAM TEJAL Stop: 06/26/24 08:59 Ephedrine Sulfate (Ephedrine Sulfate 50 Mg/Ml Amp) 5 mg IV Q5M PRN PRN Reason: PACU Use Only-SBP<90 mmHg Stop: 05/26/24 18:21 Epinephrine (Racepinephrine 2.25% Nebu Soln 0.5 Ml Vial) 0.5 ml INH NOW PRN PRN Reason: If stridor present Famotidine (Famotidine 20 Mg Tab) 20 mg PO Q12H PRN PRN Reason: Dyspepsia Stop: 06/25/24 13:08 Fentanyl Citrate (Fentanyl Citrate Pf 100 Mcg/2 Ml Vial) 50 mcg IV Q5M PRN PRN Reason: PACU Use Only-Pain Stop: 05/26/24 18:21 Glucagon (Glucagon For Inj 1 Mg Vial) 1 mg IM UD PRN; Protocol PRN Reason: Hypoglycemia Protocol Stop: 06/25/24 13:29 Glucose (Glucose 40% Gel 15 Gm Tube) 15 - 30 gm PO UD PRN; Protocol PRN Reason: Hypoglycemia Protocol Stop: 06/25/24 13:29 Glucose (Glucose 10 Tab/Tube) 4 - 8 tab PO UD PRN; Protocol PRN Reason: Hypoglycemia Protocol Stop: 06/25/24 13:29 Hydromorphone HCl (Hydromorphone Inj 2 Mg/Ml Syr/Vial) 0.5 mg IV Q5M PRN PRN Reason: PACU Use Only-Pain Stop: 05/26/24 18:21 Hydromorphone HCl (Hydromorphone Inj 0.5 Mg/0.5 Ml Syr) 0.5 mg IV Q3H PRN PRN Reason: MODERATE Pain (Scale 4,5,6) & Pre PT Stop: 06/09/24 13:08 Hydromorphone HCl (Hydromorphone Inj 1 Mg/Ml Syringe) 1 mg IV Q3H PRN PRN Reason: SEVERE Pain (Scale 7,8,9,10) Stop: 06/09/24 13:08 Last Admin: 05/26/24 13:33 Dose: 1 mg Hydroxyzine HCl (Hydroxyzine Hcl 25 Mg Tab) 25 mg PO Q8H PRN PRN Reason: Anxiety Stop: 06/25/24 13:08 Lactated Ringer's (Lr) 1,000 mls @ 15 mls/hr IV .Q24H TEJAL Stop: 05/27/24 05:59 Last Infusion: 05/26/24 09:35 Dose: Infused Lactated Ringer's (Lr) 1,000 mls @ 60 mls/hr IV .[id number] TEJAL Stop: 05/26/24 22:39 Last Admin: 05/26/24 09:12 Dose: Not Given Cefazolin Sodium (Ancef 2000mg) 2,000 mg in 15 mls @ 3.75 mls/min IV PREOP TEJAL; Protocol Stop: 05/26/24 18:00 Last Admin: 05/26/24 09:38 Dose: 3.75 mls/min Promethazine HCl 6.25 mg/ (Sodium Chloride) 50.25 mls @ 204 mls/hr IV ONCE PRN PRN Reason: PACU Use Only-Nausea/Vomiting Stop: 05/26/24 18:21 Dexamethasone 8 mg/ Syringe 2 mls @ 1 mls/min IV NOW PRN PRN Reason: If stridor present Lactated Ringer's (Lr) 1,000 mls @ 75 mls/hr IV .[id number] TEJAL Stop: 06/25/24 13:08 Last Admin: 05/26/24 13:10 Dose: 75 mls/hr Promethazine HCl 12.5 mg/ (Sodium Chloride) 50.5 mls @ 202 mls/hr IV Q6H PRN PRN Reason: Nausea &/or Vomiting Stop: 06/25/24 13:08 Acetaminophen (Ofirmev) 1,000 mg in 100 mls @ 400 mls/hr IV Q8H PRN PRN Reason: Pain Rating 1-3 & Pre PT Stop: 05/27/24 13:10 Cefazolin Sodium (Ancef 1000mg) 1,000 mg in 7.5 mls @ 2.5 mls/min IV Q8H TEJAL; Protocol Stop: 05/27/24 01:32 Lorazepam 0.5 mg/ Syringe 0.5 mls @ 2 mls/min IV Q8H PRN; Protocol PRN Reason: Sedation/Anxiety Stop: 06/25/24 13:08 Dexamethasone 6 mg/ Syringe 1.5 mls @ 1 mls/min IV Q8H ON LICENSE OF [facility] Stop: 05/27/24 09:02 Influenza Virus Vaccine Quadrival (Do Not Administer Flu Vaccine) 1 each N/A PRN PRN PRN Reason: Notification Stop: 06/25/24 13:08 Insulin Aspart (Insulin Aspart Per Unit Charge) 0 units SC ACHS ON LICENSE OF [facility] Stop: 06/25/24 16:29 Lisinopril (Lisinopril 5 Mg Tab) 5 mg PO HS ON LICENSE OF [facility] Stop: 06/25/24 20:59 Lorazepam (Lorazepam 0.5 Mg Tab) 0.5 mg PO Q8H PRN PRN Reason: Sedation/Anxiety Stop: 06/25/24 13:08 Magnesium Hydroxide (Magnesium Hydroxide Susp 30 Ml Udc) 30 ml PO Q24H PRN PRN Reason: Constipation Stop: 06/25/24 13:08 Melatonin (Melatonin 3 Mg Tab) 9 mg PO HS PRN PRN Reason: Insomnia Stop: 06/25/24 13:13 Metoclopramide HCl (Metoclopramide Hcl Inj 5 Mg/Ml 2 Ml Vial) 10 mg IV Q6H PRN PRN Reason: Nausea &/or Vomiting Stop: 06/25/24 13:08 Miscellaneous (Carbohydrates For Hypoglycemia ) 15 - 30 gm PO UD PRN PRN Reason: Hypoglycemia Treatment Stop: 06/25/24 13:29 Multivitamins (Multivitamin Tab) 1 tab PO QPM ON LICENSE OF [facility] Stop: 06/25/24 20:59 Naloxone HCl (Naloxone Hcl 0.4 Mg/1 Ml Vial/Carp) 0.1 mg IV Q5M PRN PRN Reason: Oversedation/Resp depression Stop: 06/25/24 13:08 Ondansetron HCl (Ondansetron Inj 2 Mg/Ml 2 Ml Vial) 4 mg IV ONCE PRN PRN Reason: PACU Use Only-Nausea/Vomiting Stop: 05/26/24 18:21 Ondansetron HCl (Ondansetron Inj 2 Mg/Ml 2 Ml Vial) 4 mg IV Q6H PRN PRN Reason: Nausea &/or Vomiting Stop: 06/25/24 13:08 Ondansetron HCl (Ondansetron 4 Mg Od Tab) 4 mg PO Q6H PRN PRN Reason: Nausea Stop: 06/25/24 13:08 Oxycodone HCl (Oxycodone Hcl Ir 5 Mg Tab (Immediate Release)) 5 - 10 mg PO Q4H PRN PRN Reason: Pain & Pre PT Stop: 06/09/24 13:08 Pneumococcal Polyvalent Vaccine (Do Not Administer Pneumococcal Vaccine) 1 each N/A PRN PRN PRN Reason: Notification Stop: 06/25/24 13:08 Polyethylene Glycol (Polyethylene (Miralax) 17 Gm Pack) 17 gm PO Q6 TEJAL Stop: 06/26/24 05:59 Pregabalin (Pregabalin 25 Mg Cap) 25 mg PO BID TEJAL Stop: 06/25/24 20:59 Senna/Docusate Sodium (Docusate Sodium/Senna 50/8.6mg Tab) 2 tab PO HS TEJAL Stop: 06/25/24 20:59 Sodium Biphosphate/Sodium Phosphate (Sod Phosphate/Sod Biphosphate Enema 132 Ml Btl) 132 ml IN ONE PRN PRN Reason: Constipation Stop: 06/25/24 13:08 Tramadol HCl (Tramadol Hcl 50 Mg Tablet) 50 - 100 mg PO Q4H PRN PRN Reason: Moderate-Severe pain & Pre PT Stop: 06/25/24 13:08 Vitamin B Complex (Vitamin B Complex Tab) 1 tab PO DAILY TEJAL Stop: 06/26/24 08:59 ECG Additional Comments: I have independently reviewed and interpreted patient's admitting EKG which revealed: Sinus bradycardia with ventricular rate of 55 bpm, no ST or T wave change, QTc 397 ms
[2024-05-26] MEDS: INSULIN ASPART PER UNIT CHARGE SC SCH (17:08)
[2024-05-26] MEDS: dexAMETHasone 6 MG in SYRINGE 0 ML IV SCH (17:13)
[2024-05-26] MEDS: ceFAZolin 1000MG 1,000 MG/7.5 ML SYR IV SCH (17:13)
[2024-05-26] MEDS: ONDANSETRON INJ 2 MG/ML 2 ML VIAL IV PRN (20:09)
[2024-05-26] MEDS: lisinopril 5 MG TAB PO SCH (20:21)
[2024-05-26] MEDS: MULTIVITAMIN TAB PO SCH (20:21)
[2024-05-26] MEDS: DOCUSATE SODIUM/SENNA 50/8.6MG TAB PO SCH (20:21)
[2024-05-26] MEDS: PREGABALIN 25 MG CAP PO SCH (20:37)
[2024-05-26] MEDS ORDERED: Nursing to Pharmacy Communication SCH (21:00)
[2024-05-26] MEDS ORDERED: ATORVASTATIN 20 MG TAB PO SCH (21:00)
[2024-05-26] MEDS: oxyCODONE HCL IR 5 MG TAB (IMMEDIATE RELEASE) PO PRN (22:17)
[2024-05-26] MEDS: MELATONIN 3 MG TAB PO PRN (22:17)
--- OUTSIDE RECORDS SUMMARY | 2024-05-27 04:48 | External Medical Summary | Summary of Care ---
Author Name Unknown Organization [facility] Address [address] [place] [address] Phone [phone] Care Team Providers Care Reimbursement Liaison Name Role Phone Lisandra Payan DO Primary Care Provider + [phone] Reason for Visit * Reason Comments eRx-Medication Refill Encounter Details Date Type Department Care Team (Late st Contact Info) Description 04/13/2024 Refill Psychiatry, [place] [address], [place] [id number] Jesus Lawrence DO [address] [facility], [place] [id number] Allergies Active Allergy Reactions Criticality Noted Date [...] as of this encounter (statuses as of 05/26/2024) Medications Medication Sig Dispensed Refills Start Date [...] 9 Each 3 07/26/2023 Active Dexcom G7 Acoustics Teacher DeviceIndications:Ty pe 2 diabetes mellitus with hemoglobin A1c goal of less than 7.0% (HCC) Use to monitor blood sugars continuously E11.9 1 Each 07/26/2023 Active Nystatin 643604 UNIT/GM External Cream apply topically twice daily as needed for rash 30 g 3 08/02/2023 Active Ketotifen Fumarate 0.025 % Ophthalmic Solution 1 Drop in the morning and 1 Drop before bedtime. Active [place] Pain Relieving 80-24-16 MG External Patch (Xjzwijb-Qscdjnn-Fji sicum) Apply topically to affected area. Active OneTouch Verio w/Device KitIndications:Type 2 diabetes mellitus with hemoglobin A1c goal of less than 7.0% ([facility]) Use once daily to check [...] hemoglobin A1c goal of less than 7.0% ([facility]) TAKE 1 TABLET BY MOUTH [...] the morning. 100 Tablet 3 03/25/2024 Active FLUoxetine HCl 40 MG Oral Capsule (PROzac) TAKE 1 CAPSULE BY MOUTH EVERY DAY 90 Capsule 1 05/26/2024 Active Mirtazapine 7.5 MG Oral Tablet (Remeron)Indications :Sleep difficulties TAKE 1/2 TO 1 TABLET BY MOUTH EVERY NIGHT NEEDED FOR SLEEP PROBLEMS. 90 Tablet 1 04/14/2024 Active documented as of this encounter (statuses as of 05/26/2024) Active Problems Problem Noted Date Diagnosed Date [...] as of this encounter (statuses as of 05/26/2024) Resolved Problems Problem Noted Date Diagnosed Date [...] as of this encounter (statuses as of 05/26/2024) Immunizations Name Administration Dates Next Due COVID-19 mRNA, LNP-s, No Pre serve, 2-Dose Series (Power Vision) 09/01/2021,01/12/2021,12/22/2020 COVID-19, LNP-s, No Preserve , Matthew-sucrose, Ages 12+ (Pfizer) 05/07/2022 COVID-19, MRNA-LNP, 23-24, P F, 30 MCG/0.3 mL, 12 YRS AND ABOVE, IM (Wonderloop-Comirnat) 09/14/2023 Covid-19, Mrna, Lnp-s, Pf, B ivalent, 30 Mcg, IM, 12 yrs and above (Power Vision) 09/25/2022 Hepatitis B, 20+ yrs 11/08/2014,06/07/2014,05/05 Pneumococcal [...] 09/25/2023 Does the household have a re lar source of income? (Household - for ages [...] encounter Miscellaneous Notes * Telephone Encounter - Lisandra Payan DO - 05/26/2024 10:08 AM EDTSigned Prescriptions: Disp Refills FLUoxetine HCl 40 MG Oral Capsule (PROzac) 90 Cap*1 Sig: TAKE 1 CAPSULE BY MOUTH EVERY DAYAuthorizing Provider: LISANDRA PAYAN * Telephone Encounter - Lisandra Payan DO - 05/26/2024 10:08 AM EDT Rx sent. * Telephone Encounter - Meghna Carey PA-C - 05/26/2024 9:52 AM EDTPending Prescriptions: Disp Refills FLUoxetine HCl 40 MG Oral Capsule [Pharmac*90 Cap*1 Sig: TAKE 1 CAPSULE BY MOUTH EVERY DAY * Telephone Encounter - Interface, E-Rx Ss Inbound - 04/15/2024 12:45 PM EDT Pending Prescriptions: Disp Refills FLUoxetine HCl 40 MG Oral Capsule [Pharmac*90 Cap*1 Sig: TAKE 1CAPSULE BY MOUTH EVERY DAY documented in this encounter Plan of Treatment Upcoming Encounters Date Type Department Care Team (Late st Contact Info) Description 06/16/2024 9:20 AM EDT Office Visit Family Practice [facility] [address] [place] [phone] Lisandra Payan DO [address] [place] [address] 06/26/2024 2:00 PM EDT Nurse Only Ancillary [address] [address] College, Nurse Annual Wellness Visit [address] [facility] [address] [place] [address] 11/02/2024 11:00 AM EST [place]iology, [address] [place] [address] 02/22/2025 11:00 AM EDT Office Visit Rheumatology [address] [place] [address] Lokesh Giordano MD [address] [place] [address] [place] [address] Health Maintenance Due Date Last Done Comments COVID-19 Vaccine (2022- season) 2024 09/14/2023, 09/25/2022, 05/07/2022, Additional history exists *BISPHONATE OR OTHER ACCEPTABLE MEDICATION NEEDED FOR OSTEOPOROSIS (REFER TO SMARTSET #1146) 02/24/2024 Albumin/Creatinine Ratio 06/12/20242 023, 07/09/2022, 07/04/2021, Additional history exists Influenza Vaccine (FLU shot) (#1) 2024 08/20/2023, 08/08/2022, 08/03/2021, Additional history exists Depression Monitoring 09/25/2024 09/25/2023 DXA Scan 10/30/2024 10/30/2022, 12/0 04/2022, 10/17/2020, Additional history exists HbA1c 11/12/2024 [...] D LEVEL ONCE IN A LIFETIME-USE SMARTSET# [id number] Completed 02/08/2023, 07/09/2022, 07/04/2021, Additional history exists Zoster Vaccines Completed 04/18/2023, 01/24, 03/09/2009 GARDASIL-HPV IMMUNIZATION SERIES Aged Out No longer eligible based on patient's age to complete this topic MENINGOCOCCAL (MENACTRA/MENVEO) Aged Out No longer eligible based on patient's age to complete this topic Sigmoidoscopy Discontinued documented as of this encounter Medical Devices Not on filedocumented as of this encounter Care Teams Reimbursement Liaison Relationship Specialty Start Date End Date Lisandra Payan DO [address] [place] [address] PCP - General Family Medicine 05/08/24 Shmuel Patel PA Specialist Medical Oncology 09/15/[address] [facility] [place] Specialist 09/15/15 documented as of this encounter
[2024-05-27] MEDS: POLYETHYLENE (MIRALAX) 17 GM PACK PO SCH (05:08)
[2024-05-27] MEDS: CYANOCOBALAMIN (B-12) 500 MCG TABLET PO SCH (08:49)
[2024-05-27] MEDS: VITAMIN B COMPLEX TAB PO SCH (08:49)
[2024-05-27] MEDS: DULoxetine HCL 20 MG CAP PO SCH (08:49)
[2024-05-27] MEDS: ATORVASTATIN 20 MG TAB PO SCH (08:49)
[2024-05-27] MEDS ORDERED: NON-FORMULARY MEDICATION (Linagliptin [Tradjenta] 5 mg tablet) PO SCH (09:00)
--- NOTE | 2024-05-27 10:01 | Discharge Summary ---
Date of Service May 27, 2024 Admission HPI Per Admitting Provider This is a 74-year-old female presents with chronic persistent neck and arm pain a failed course of nonoperative care she is here for surgical invention. Principal Diagnosis Cervical spinal stenosis with myeloradiculopathy Discharge Data Allergies Allergy/AdvReac Type Severity Reaction Status Date / Time gabapentin Allergy Intermediate Nausea, Verified 05/26/24 08:34 dizziness, forgetfulness diphenhydramine Allergy Unknown Anxiety Verified 05/26/24 08:34 nickel Allergy Unknown Rash Verified 05/26/24 08:34 Consultations 05/26/24 13:09 Consult Hospitalist Routine Procedures Performed Operation Date: 05/26/24 09:35 Actual Procedures p C4-C6 Anterior Cervical Discectomy and Fusion, C5 Corpectomy, Spinal Cord M onitoring(Not Applicable) - Taye Hernandez DO Ordered Studies 05/26/24 09:35 FL cervical 2-3V Routine Hospital Course (1) Myelopathy concurrent with and due to spinal stenosis of cervical region: Plan Patient underwent anterior cervical decompression fusion tolerated this well was taken to orthopedic for postoperative. Postop day 1 she was swallowing well. No hoarseness. Extra strength testing. Arm symptoms improved. Ambulating well. Subsequent discharge home. Discharge orders instructions from the chart for further review. Total Time Total Time Spent Total Time Spent (In Minutes): 20 minutes Discharge Plan Discharge Items Patient Disposition: Home - Self-Care Reason For Visit: Cervical Myelopathy, Cervical Radiculopathy Discharge Diagnosis: Cervical spinal stenosis with myeloradiculopathy Activity: As commented below Non-emergency contact: Primary Care Provider Call non-emergency contact if: you have any medication questions Follow-up/Referrals: Lisandra Beard DO [Primary Care Provider] - Diet: Regular Addtl Attending Provider Instructions: ACTIVITY RECOMMENDATIONS: SELF CARE INSTRUCTIONS AFTER CERVICAL FUSIONS 1. No smoking. Smoking drastically decreases the chance of a solid fusion. 2. No bending, lifting more than 5 pounds, or twisting (roll like a log when turning in bed). 3. You may shower 3 days after surgery. Thoroughly dry wound. Do not soak in the tub. 4. Cervical collar: Must be worn at all times including sleeping. You may remove the brace only to bath, eat and if you are sitting in a recliner. 5. Please walk as much as you can for exercise. Gradually increase the distance that you walk as your endurance increases. SPECIAL CARE INSTRUCTIONS: VERY IMPORTANT TO READ AND REVIEW A. Do not take any anti-inflammatory medications (i.e. Indocin, Advil, Aspirin, Naprosyn, Aleve, Motrin, etc.) as these may inhibit the chance of a solid fusion. Tylenol is okay to take. B. Your surgical incision has been closed with a cosmetic suture under the skin that will dissolve in about 6 weeks. In 14 days, you can use a pair of clean scissors and cut the suture that is left outside of the skin at the ends of your incision. C. Complications are uncommon, but please contact us if you have any signs or symptoms of: 1. wound infection (fever higher than 102.5 degrees F, redness, separation of wound, drainage, or increasing pain from the incision) 2. blood clots in legs (pain, swelling, redness and warmth in legs) 3. urinary tract infection (fever higher than 102.5 degrees, burning upon urination or increased frequency of urination) 4. nerve problems (inability to walk on your toes or heels, numbness, loss of bowel or bladder control) 5. any other symptoms that concern you. D. Please call the office at if you have any concerns or questions about your operation or recovery. MANAGING PAIN AFTER SPINAL SURGERY 1. Narcotic medication is intended for short-term use and will be provided for surgical pain. Surgical pain usually lasts for a period of 4-6 weeks. Narcotic medication includes Percocet, Vicodin, Darvocet, Tylenol #3 or Lortab. 2. Longer-term pain is more appropriately treated with non-narcotic medication such as Tylenol ES. 3. Muscle spasm is not appropriately treated with narcotics. Muscle relaxers such as Soma, Flexeril or Skelaxin can be used along with Tylenol ES. 4. Remember that we all live with some "aches and pains". This is not unusual or uncommon after an injury or as we get older. 5. We will provide appropriate medication within the normal guidelines of their prescribed use. We will also be very cautious and aware of potential abuse and extended duration of patients' medication needs. 6. Please allow 2-3 days to process refills. Prescriptions will not be mailed but must be picked up at the office. FOLLOW UP VISIT: Keep your scheduled follow-up appointment. Any questions, please call the office at . Pending Studies at Discharge: No Stand-Alone Forms: My [facility], Smoking Cessation Medications and DC Order Prescriptions: New tramadol 50 mg tablet 50 mg PO Q6H PRN (Reason: pain, moderate) Qty: 20 0RF oxycodone 5 mg tablet 5 mg PO Q6H PRN (Reason: pain) Qty: 20 0RF ondansetron 4 mg tablet,disintegrating 4 mg PO Q6H PRN (Reason: nausea and vomiting) Qty: 30 0RF Continued atorvastatin [Lipitor] 20 mg tablet 20 mg PO HS Tradjenta 5 mg tablet 5 mg PO QAM Xiidra 5 % Dropperette 1 drp OPB BID Rx Instructions: both eyes multivitamin Tablet 1 tab PO QPM cyanocobalamin (vitamin B-12) [Vitamin B-12] 500 mcg Tablet 500 mcg PO QAM mirtazapine [Remeron] 15 mg Tablet 7.5 - 15 mg PO HS PRN (Reason: Insomnia) melatonin 5 mg Tablet 10 mg PO HS PRN (Reason: Insomnia) nystatin 100,000 unit/gram cream 1 applic TOPICAL BID PRN (Reason: Rash) Vaniqa 13.9 % Cream 1 applic TOPICAL BID PRN (Reason: Skin Irritation) Rx Instructions: space doses >= 8 hrs apart and at least 5 min after hair removal; avoid water for 4hr after any dose Salonpas Deep Relieving 3.1-15-10 % Gel 1 ea TOPICAL BID PRN (Reason: Pain) lidocaine 5 % Adhesive Patch,Medicated 1 patch TOPICAL DAILY PRN (Reason: Pain) Rx Instructions: leave on most painful area for up to 12 hrs vitamin B complex [Super B Complex] Capsule 1 cap PO DAILY pregabalin 25 mg Capsule 25 mg PO BID Metamucil 3.4 gram/5.4 gram Powder 1 tbsp PO Q2D PRN (Reason: Constipation) Rx Instructions: mix into at least 8 oz of water or juice before administering FiberWell 2.5 gram Tablet,Chewable 2.5 g PO DAILY lisinopril 5 mg tablet 5 mg PO HS duloxetine 20 mg capsule,delayed release(DR/EC) 20 mg PO QAM hydrocodone-acetaminophen 5-325 mg Tablet 1 tab PO Q6H PRN (Reason: Pain) tramadol 50 mg Tablet 50 mg PO BID PRN (Reason: Pain) Discharge Orders: Discharge Order (Routine); Ordered 05/27/24 Ordered By: Taye Hernandez Admission Data Admit Date/Time: 05/26/24 11:23 Attending Provider: Taye Hernandez Admit Provider: Taye Hernandez Primary Care Provider: Lisandra Beard Other Providers: [facility]; Perlita Jose
--- NOTE | 2024-05-27 11:53 | Hospitalist Progress Note ---
Date of Service May 27, 2024 Assessment & Plan (1) Myelopathy concurrent with and due to spinal stenosis of cervical region: (2) Diabetes mellitus, type 2: (3) Hypertension: (4) Dyslipidemia: Plan Ms Lee is a 74-year-old female who has significant past medical history of T2DM, HTN, HLD, diabetic polyneuropathy, GERD, senile osteoporosis, history of lumbar spinal stenosis, chronic low back pain, history of migraine and depression with anxiety who is s/p ACDF with Dr. Hernandez 05/26. Patient doing well post op and eager for home. Patient with home support from friends and caregivers. S/P ACDF C4-C6 with C5 corpectomy [address] Dr. Hernandez, tolerated procedure well, POD #1 pain/wound management per orthopedics continue cervical collar, HAMILTON drain management per ortho activity and diet per orthopedics T2DM well controlled, a1c 5.9 resume tradjenta upon d/c HLD chronic, stable continue statin HTN BP stable post op continue lisinopril Diabetic polyneuropathy continue pregabalin Senile Osteoporosis continue vit D DVT ppx: SCDS, per primary FULL CODE PCP: Dr. Beard Dispo: per primary Thank you for this consultation. We will follow the patient with you during their hospital stay. You can reach a member of the [facility] Hospitalist Team 17/06 via hospitalist role on tiger text. Admission and Anticipated Discharge Date Admission Date: May 26, 2024 Subjective NAEO Reports feeling better than anticipated Physical Exam Constitutional: WD/WN, vitals as above Neck: [place] j in place, HAMILTON drain visible, min discharge, anterior dressing CDI Respiratory: normal respiratory effort, lungs clear to auscultation Cardiovascular: RRR, no murmur, no edema Musculoskeletal: no cyanosis or clubbing, extremities motor strength 5/5 Results & Data Results & Data Vital Signs (Past 12 Hours) Vital Signs Temp Pulse Resp BP Pulse Ox O2 Del Method 05/27/24 11:25 36.6 C 63 17 125/72 98 Room Air 05/27/24 09:39 36.7 C 60 17 114/64 Room Air 05/27/24 07:29 60 15 96 Room Air 05/27/24 07:21 36.7 C 58 L 17 120/60 96 Room Air 05/27/24 06:19 36.6 C 61 18 113/59 L 96 Room Air 05/27/24 04:00 36.2 C L 58 L 18 120/66 97 Room Air 05/27/24 02:43 36.5 C 54 L 16 117/63 98 Room Air 05/27/24 02:35 58 L 19 96 Room Air 05/27/24 00:01 36.5 C 62 16 125/52 L 97 Room Air Medications Administered Home Medications Medication Instructions Recorded Confirmed Last Taken atorvastatin 20 mg tablet (Lipitor) 20 mg PO HS 08/19/18 05/26/24 05/25/24 09:00 lifitegrast 5 % eye drops in a 1 drp OPB BID 10/13/19 05/26/24 05/25/24 dropperette (Xiidra) cyanocobalamin (vitamin B-12) 500 500 mcg PO QAM 10/05/21 05/26/24 05/24/24 mcg tablet (Vitamin B-12) mirtazapine 15 mg tablet (Remeron) 7.5 - 15 mg PO HS PRN Insomnia 10/05/21 05/26/24 05/25/24 21:00 multivitamin 1 tab PO QPM 10/05/21 05/26/24 05/23/24 melatonin 5 mg tablet 10 mg PO HS PRN Insomnia 04/10/23 05/26/24 05/25/24 21:00 camphor 3.1 %-methyl salicylate 15 1 ea topical BID PRN Pain 04/11/23 05/26/24 Unknown %-menthol 10 % topical gel (Salonpas Deep Relieving) eflornithine 13.9 % topical cream 1 applic topical BID PRN Skin 04/11/23 05/26/24 Unknown (Vaniqa) Irritation lidocaine 5 % topical patch 1 patch topical DAILY PRN Pain 04/11/23 05/26/24 05/24/24 nystatin 100,000 unit/gram topical 1 applic topical BID PRN Rash 04/11/23 05/26/24 Unknown cream linagliptin 5 mg tablet (Tradjenta) 5 mg PO QAM 12/24/23 05/26/24 05/25/24 09:00 duloxetine 20 mg capsule,delayed 20 mg PO QAM 05/06/24 05/26/24 05/25/24 09:00 release lisinopril 5 mg tablet 5 mg PO HS 05/06/24 05/26/24 05/24/24 21:00 polydextrose 2.5 gram chewable 2.5 g PO DAILY 05/06/24 05/26/24 Unknown tablet (FiberWell) pregabalin 25 mg capsule 25 mg PO BID 05/06/24 05/26/24 05/23/24 psyllium husk 3.4 gram/5.4 gram 1 tbsp PO Q2D PRN Constipation 05/06/24 05/26/24 Unknown oral powder (Metamucil) vitamin B complex 1 cap PO DAILY 05/06/24 05/26/24 05/22/24 hydrocodone 5 mg-acetaminophen 325 1 tab PO Q6H PRN Pain 05/13/24 05/26/24 05/24/24 mg tablet tramadol 50 mg tablet 50 mg PO BID PRN Pain 05/13/24 05/26/24 Unknown ondansetron 4 mg disintegrating 4 mg PO Q6H PRN nausea and 05/27/24 Unknown tablet vomiting #30 tabs oxycodone 5 mg tablet 5 mg PO Q6H PRN pain #20 tabs 05/27/24 Unknown tramadol 50 mg tablet 50 mg PO Q6H PRN pain, moderate 05/27/24 Unknown #20 tabs
== END 2024-05-27 13:15 | disposition home or self-care (01) | DRG 472 ==
LOC: ASU 07:52 → 3E 11:23
DX: Z88.8 Allergy status to other drugs, medicaments and biological substances; I10 Essential (primary) hypertension; Z79.84 Long term (current) use of oral hypoglycemic drugs; E11.42 Type 2 diabetes mellitus with diabetic polyneuropathy; G99.2 Myelopathy in diseases classified elsewhere; F41.8 Other specified anxiety disorders; Z79.899 Other long term (current) drug therapy; E78.5 Hyperlipidemia, unspecified; M48.02 Spinal stenosis, cervical region; Z91.048 Other nonmedicinal substance allergy status; M81.0 Age-related osteoporosis without current pathological fracture